=== PATIENT | female | born 1990 | race Caucasian/White ===

== ENCOUNTER 2016-11-12 10:45 | Observation (INO) | payer BC, OTHER ==
[2016-11-12] VITALS (7 sets, daily range): BP systolic 106–148; BP diastolic 68–88; PULSE 67–108; TEMP 36.6–36.9; O2SAT 93–100; Ht 160 cm; Wt 130.5 kg
[~2016-11-12] VITALS: Ht 160 cm; Wt 130.5 kg
[~2016-11-12 10:45] MED LIST: ALBUAER2 INH; CEFAZOLIN 3000 MG/65 ML D5W IV SCH; CEPH500C PO; CLC100 PO; IBUP-1428 PO; OXYC-57 PO; PRENTAB26 PO
[2016-11-12 12:13] LABS: URINE APPEARANCE CLOUDY (CLEAR); URINE BILIRUBIN NEG (NEG); URINE COLOR DK YELLOW; URINE EPITHELIAL CELL AUTO >30 /lpf (0-5); URINE NITRITE NEG (NEG); URINE SPECIFIC GRAVITY 1.028 (1.000-1.030); UROBILINOGEN NEG (NEG); ZZUR CULT IF INDIC CLEAN CATCH NO
[2016-11-12 12:14] LABS: MANUAL MICROSCOPIC REQUIRED? NO; REVIEW REQ? NO
[2016-11-12 12:22] LABS: BASO % 0.2 %; BASO ABS # 0.02 K/uL (0-0.2); COMPLETE YES; EOS % 1.6 %; HEMATOCRIT 36.4 % (37-47); IG% 0.2 %; LYMPH % 12.7 %; LYMPH ABS # 1.51 K/uL (1.2-3.4); MEAN CELL VOLUME 86.7 fL (80-100); MEAN CORPUSCULAR HEMOGLOBIN 28.8 pg (25-34); MEAN CORPUSCULAR HGB CONC 33.2 g/dl (32-36); MEAN PLATELET VOLUME 9.1 fL (7.4-10.4); MONO % 4.6 %; NEUT % 80.7 %; PLATELET COUNT 363 K/uL (130-400); WHITE BLOOD COUNT 11.93 K/uL (4.8-10.8)
[2016-11-12 12:41] LABS: CALCIUM 8.8 mg/dl (8.5-10.1); CREATININE 0.75 mg/dl (0.60-1.20); POTASSIUM 3.7 mmol/L (3.5-5.1)
[2016-11-12 12:43] LABS: ALB/GLOB RATIO 0.7 (0.9-2)
--- NOTE | 2016-11-12 13:37 | DIAGNOSTIC IMAGING REPORT ---
BILIARY ABDOMEN LIMITED HISTORY: 26 years-old Female RUQ pain/tenderness, +Smith's Sign acute right upper quadrant abdominal pain and tenderness. COMPARISON: KUB radiograph 03/14/2010 TECHNIQUE: Multiple real-time sonographic images of the abdominal right upper quadrant were obtained assessing grayscale appearance and color flow. FINDINGS: The study is mildly limited secondary to patient body habitus. The pancreas is not well seen. There is increased echogenicity with poor through transmission of the liver compatible with fatty infiltration. There is a 3 cm gallstone seen within the region of the gallbladder neck. Gallbladder wall thickening is noted measuring up to 6 mm with trace pericholecystic fluid noted. Patient tenderness was reported during exam. Common bile duct measures 0.5 cm. No intrahepatic biliary ductal dilation. Imaged right kidney is unremarkable without hydronephrosis. IMPRESSION: 1. Cholelithiasis with large gallstone seen near the gallbladder neck. Associated gallbladder wall thickening in combination with pericholecystic fluid and patient tenderness is very concerning for acute cholecystitis in the appropriate clinical setting. 2. No biliary ductal dilation. 3. Fatty infiltration of the liver. The above report was generated using voice recognition software. It may contain grammatical, syntax or spelling errors. Electronically signed by: Tyler Goodman M.D. 11/12/2016 1:36 PM Dictated Date/Time: 11/12/2016 1:32 PM
[2016-11-12] MEDS ORDERED: SODIUM CHLORIDE 0.9% 1000ML 1,000 ML IV STA (15:12)
[2016-11-12] MEDS ORDERED: MoRPHine SULFATE 4 MG/ML 1 ML CARP\\VIAL IV STA (15:12)
--- NOTE | 2016-11-12 15:12 | EMERGENCY ROOM VISIT NOTE ---
History First contact with patient: 11:32 Chief Complaint: ABDOMINAL PAIN Stated Complaint: ABD PAIN, PAIN IN UPPER QUAD - THROUGH DIAPHREAM Nursing Triage Summary: Pt reports RUQ pain since Mon night. N/V this morning. "I get this that randomly comes and goes, but this time it isn't leaving." Pt reports she had her menstrual cycle two weeks ago, continues to have vaginal bleeding which is not normal for her. Denies problems with gall bladder. History of Present Illness The patient is a 26 year old female who presents to the Emergency Room with complaints of right upper quadrant abdominal tenderness since yesterday. The patient states she thought the pains were related to gas, however they have not gone away. She states is The pain as dull, and states intermittently it does become sharp. The pain has awakened her from sleep. She states yesterday, she did eat an ache sandwich prior to the pain occurring, but has not noticed that food makes her pain better or worse. Patient states moving and sitting from a lying position does make the pain worse. She describes it as stabbing. The patient did take some ibuprofen, which did help mildly. She has had a decreased appetite and has not eaten anything since proximally 10 PM last night. He does report nausea with vomiting last night, but denies fever, chills , diarrhea, constipation, back pain, bloody urine, blood in her stool, urinary discomfort, or other associated symptoms. Review of Systems A complete 10 point review of systems was reviewed with the patient with pertinent positives and negatives as per history of present illness. All else were negative. Past Medical/Surgical History None Family History None Social History Smoking Status: Current Every Day Smoker Smokeless Tobacco Use: No Alcohol Use: occasionally Drug Use: none Marital Status: single Housing Status: lives with friends Occupation Status: employed Current/Historical Medications No Active Prescriptions or Reported Meds Allergies None Physical Exam Vital Signs Date Time Temp Pulse Resp B/P (MAP) Pulse Ox O2 Delivery O2 Flow Rate FiO2 11/12/16 15:00 103 18 169/109 100 Room Air 11/12/16 12:38 92 16 153/87 100 Room Air 11/12/16 11:02 36.9 108 18 165/103 98 Room Air Physical Exam VITALS: Vitals are noted on the nurse's note and reviewed by myself. Vital signs stable. GENERAL: This is a 26-year-old obese white female, in no acute distress, nondiaphoretic, well-developed well-nourished. SKIN: The skin was without rashes, erythema, edema, or bruising. There is no tenting of the skin. Capillary reflex less than 2 seconds. HEAD: Normocephalic atraumatic. EARS: External auditory canals clear, tympanic membranes pearly desir without erythema or effusion bilaterally. EYES: Pupils equal round and reactive to light and accommodation. Conjunctivae without injection, sclerae without icterus. Extraocular movements intact. NOSE: Patent, turbinates without inflammation or discharge. No sinus tenderness. MOUTH: Mucous membranes moist. Tonsils are not enlarged. Pharynx without erythema or exudate. Uvula midline. Airway patent. Tongue does not deviate. NECK: Supple without nuchal rigidity. No lymphadenopathy. No thyromegaly. Cervical spine is nontender. No JVD. HEART: Regular rate and rhythm without murmurs gallops or rubs. LUNGS: Clear to auscultation bilaterally without wheezes, rales or rhonchi. No dullness to percussion. No retractions or accessory muscle use. ABDOMEN: Positive bowel sounds x 4. Normal tympanic percussion. Significant RUQ tenderness on palpation. Pratt sign positive. Otherwise, abdomen is soft, nontender, without masses or organomegaly. No guarding or rebound tenderness. MUSCULOSKELETAL: No muscle atrophy, erythema, or edema noted. Full range of motion without joint tenderness in all extremities. No tenderness to palpation. Normal gait. Strength 5/5 throughout. NEURO: Patient was alert and oriented to person place and time. Normal sensation to light and sharp touch. Deep tendon reflexes 2+ throughout. No focal neurological deficits. Medical Decision & Procedures ER Provider Diagnostic Interpretation: On CBC, the patient does have a slight leukocytosis of just under 12,000. No anemia or thrombocytopenia. CMP did show mildly elevated ALT of 61. Otherwise, without significant electrolyte, renal, hepatic abnormalities. Lipase was negative. Urinalysis did show some WBC, blood, and epithelial cells. I suspect a contaminated specimen. US Biliary Abdomen Limited: BILIARY ABDOMEN LIMITED HISTORY: 26 years-old Female RUQ pain/tenderness, +Smith's Sign acute right upper quadrant abdominal pain and tenderness. COMPARISON: KUB radiograph 03/14/2010 TECHNIQUE: Multiple real-time sonographic images of the abdominal right upper quadrant were obtained assessing grayscale appearance and color flow. FINDINGS: The study is mildly limited secondary to patient body habitus. The pancreas is not well seen. There is increased echogenicity with poor through transmission of the liver compatible with fatty infiltration. There is a 3 cm gallstone seen within the region of the gallbladder neck. Gallbladder wall thickening is noted measuring up to 6 mm with trace pericholecystic fluid noted. Patient tenderness was reported during exam. Common bile duct measures 0.5 cm. No intrahepatic biliary ductal dilation. Imaged right kidney is unremarkable without hydronephrosis. IMPRESSION: 1. Cholelithiasis with large gallstone seen near the gallbladder neck. Associated gallbladder wall thickening in combination with pericholecystic fluid and patient tenderness is very concerning for acute cholecystitis in the appropriate clinical setting. 2. No biliary ductal dilation. 3. Fatty infiltration of the liver. The above report was generated using voice recognition software. It may contain grammatical, syntax or spelling errors. Electronically signed by: Tyler Goodman M.D. 11/12/2016 1:36 PM Laboratory Results 11/12/16 11:50 Red Blood Count 4.20, Mean Corpuscular Volume 86.7, Mean Corpuscular Hemoglobin 28.8, Mean Corpuscular Hemoglobin Concent 33.2, Mean Platelet Volume 9.1, Neutrophils (%) (Auto) 80.7, Lymphocytes (%) (Auto) 12.7, Monocytes (%) (Auto) 4.6, Eosinophils (%) (Auto) 1.6, Basophils (%) (Auto) 0.2, Neutrophils # (Auto) 9.64, Lymphocytes # (Auto) 1.51, Monocytes # (Auto) 0.55, Eosinophils # (Auto) 0.19, Basophils # (Auto) 0.02 11/12/16 11:50 Test 11/12/16 11:50 White Blood Count 11.93 K/uL (4.8-10.8) Red Blood Count 4.20 M/uL (4.2-5.4) Hemoglobin 12.1 g/dL (12.0-16.0) Hematocrit 36.4 % (37-47) Mean Corpuscular Volume 86.7 fL (80-100) Mean Corpuscular Hemoglobin 28.8 pg (25-34) Mean Corpuscular Hemoglobin Concent 33.2 g/dl (32-36) Platelet Count 363 K/uL (130-400) Mean Platelet Volume 9.1 fL (7.4-10.4) Neutrophils (%) (Auto) 80.7 % Lymphocytes (%) (Auto) 12.7 % Monocytes (%) (Auto) 4.6 % Eosinophils (%) (Auto) 1.6 % Basophils (%) (Auto) 0.2 % Neutrophils # (Auto) 9.64 K/uL (1.4-6.5) Lymphocytes # (Auto) 1.51 K/uL (1.2-3.4) Monocytes # (Auto) 0.55 K/uL (0.11-0.59) Eosinophils # (Auto) 0.19 K/uL (0-0.5) Basophils # (Auto) 0.02 K/uL (0-0.2) RDW Standard Deviation 45.2 fL (36.4-46.3) RDW Coefficient of Variation 14.5 % (11.5-14.5) Immature Granulocyte % (Auto) 0.2 % Immature Granulocyte # (Auto) 0.02 K/uL (0.00-0.02) Urine Color DK YELLOW Urine Appearance CLOUDY (CLEAR) Urine pH 5.0 (4.5-7.5) Urine Specific [place] 1.028 (1.000-1.030) Urine Protein 1+ (NEG) Urine Glucose (UA) NEG (NEG) Urine Ketones NEG (NEG) Urine Occult Blood 3+ (NEG) Urine Nitrite NEG (NEG) Urine Bilirubin NEG (NEG) Urine Urobilinogen NEG (NEG) Urine Leukocyte Esterase TRACE (NEG) Urine WBC (Auto) 5-10 /hpf (0-5) Urine RBC (Auto) >30 /hpf (0-4) Urine Hyaline Casts (Auto) 1-5 /lpf (0-5) Urine Epithelial Cells (Auto) >30 /lpf (0-5) Urine Bacteria (Auto) NEG (NEG) Urine Test NEG (NEG) Anion Gap 8.0 mmol/L (3-11) Est Creatinine Clear Calc Drug Dose 150.1 ml/min Estimated GFR () 127.5 Estimated GFR (Non- 110.0 BUN/Creatinine Ratio 11.0 (10-20) Calcium Level 8.8 mg/dl (8.5-10.1) Total Bilirubin 0.4 mg/dl (0.2-1) Aspartate Amino Transf (AST/SGOT) 61 U/L (15-37) Alanine Aminotransferase (ALT/SGPT) 69 U/L (12-78) Alkaline Phosphatase 91 U/L (45-117) Total Protein 8.2 gm/dl (6.4-8.2) Albumin 3.5 gm/dl (3.4-5.0) Globulin 4.7 gm/dl (2.5-4.0) Albumin/Globulin Ratio 0.7 (0.9-2) Lipase 129 U/L (73-393) Medications Administered Medications (Trade) Dose Ordered Sig/Robert Route Start Time Stop Time Status Last Admin Dose Admin Morphine Sulfate (MoRPHine SULFATE INJ) 4 mg NOW STAT IV 11/12/16 15:12 11/12/16 15:14 DC 11/12/16 15:26 4 MG Sodium Chloride 1,000 ml @ 999 mls/hr Q1H1M STAT IV 11/12/16 15:12 11/12/16 16:12 DC 11/12/16 15:12 999 MLS/HR Sodium Chloride 1,000 ml @ 125 mls/hr Q8H IV 11/12/16 15:20 12/12/16 15:19 11/12/16 19:54 125 MLS/HR Medical Decision The patient presented today complaining of right upper quadrant abdominal pain and tenderness since yesterday. She is obese. The patient states the pain has not been affected by food, but is more affected by movement. She does have a positive Pratt sign on examination. She did decline pain medication twice during my examination. Ultrasound and lab work did elevate my suspicions for acute cholecystitis. Labs and ultrasound results reviewed with the patient. I advised her that I would contact the general surgeon regarding possible surgery/admission. The patient did request pain medication at this time. She was given 1L NSS Bolus and 4mg Morphine. I did consult with Dr. Ortiz, general surgeon, who did see and evaluate the patient. The patient will be admitted to surgery. Please see his dictation. Differential diagnosis includes: Acute cholecystitis, acute pancreatitis, hepatic inflammation or abnormality, acute appendicitis, ovarian cyst, GERD, acute gastroenteritis, malignancy, and others. Medication Reconcilliation Current Medication List: was personally reviewed by me Blood Pressure Screening Patient's blood pressure: Normal blood pressure Impression Primary Impression: Acute cholecystitis Departure Information Dispostion Being Evaluated By Surgeon Condition FAIR Prescriptions No Active Prescriptions or Reported Meds Referrals No Doctor, Assigned (PCP) Patient Instructions [facility]
[2016-11-12] MEDS ORDERED: MoRPHine SULFATE 2 MG/ML CARP IV PRN ×2 (15:30)
[2016-11-12] MEDS ORDERED: ONDANSETRON INJ 2 MG/ML 2 ML VIAL IV PRN ×2 (15:30→15:45)
[2016-11-12] MEDS ORDERED: MoRPHine SULFATE 4 MG/ML 1 ML CARP\\VIAL IV PRN (15:30)
--- NOTE | 2016-11-12 15:30 | History and Physical ---
History & Physical Date & Time of Service: Nov 12, 2016 at 15:25 Chief Complaint: Abd Pain, Pain In Upper Quad - Through Diaphream Primary Care Physician: No Doctor, Assigned History of Present Illness Source: patient This is a 26-year-old female who presents to the emergency room with a complaint of pain located in the right upper abdomen that began yesterday morning. She has had other little branches of discomfort that lasted just a few minutes over the last month but nothing this lasted this long as been this severe. He does not radiate around to her back or into the left side of her back. She has no history of jaundice, hepatitis or pancreatitis. She had some nausea and vomited once this morning but there was no hematemesis. Her bowels are been moving regularly without melena or hematochezia. She has no dysuria or hematuria. Only previous abdominal surgery was a 6 years ago. Social History Smoking Status: Current Every Day Smoker Smokeless Tobacco Use: No Drug Use: none Marital Status: single Occupational Status: employed Immunizations History of Influenza Vaccine: Unknown History of Tetanus Vaccine?: Unknown Allergies Coded Allergies: No Known Allergies (Unverified , 03/22/10) Home Medications No Active Prescriptions or Reported Meds Review of Systems Constitutional: No fever Respiratory: No cough, No sputum Cardiovascular: No chest pain Abdomen: + problem reported (as per HPI) Neurologic: No memory loss Endocrine: No fatigue Hematologic / Lymphatic: No abnormal bleeding/bruising Integumentary: No rash Physical Exam Vital Signs Date Time Temp Pulse Resp B/P (MAP) Pulse Ox O2 Delivery O2 Flow Rate FiO2 11/12/16 15:00 103 18 169/109 100 Room Air 11/12/16 12:38 92 16 153/87 100 Room Air 11/12/16 11:02 36.9 108 18 165/103 98 Room Air General Appearance: no apparent distress, + obese Head: normocephalic Neck: supple, no adenopathy Respiratory/Chest: chest non-tender, lungs clear Cardiovascular: regular rate, rhythm Abdomen/GI: normal bowel sounds, soft, + tenderness (RUQ) Back: normal inspection, no CVA tenderness Extremities/Musculoskelatal: normal inspection, no calf tenderness Skin: normal color Diagnostics Laboratory Results Results Past 24 Hours Test 11/12/16 11:50 Range/Units White Blood Count 11.93 4.8-10.8 K/uL Red Blood Count 4.20 4.2-5.4 M/uL Hemoglobin 12.1 12.0-16.0 g/dL Hematocrit 36.4 37-47 % Mean Corpuscular Volume 86.7 80-100 fL Mean Corpuscular Hemoglobin 28.8 25-34 pg Mean Corpuscular Hemoglobin Concent 33.2 32-36 g/dl Platelet Count 363 130-400 K/uL Mean Platelet Volume 9.1 7.4-10.4 fL Neutrophils (%) (Auto) 80.7 % Lymphocytes (%) (Auto) 12.7 % Monocytes (%) (Auto) 4.6 % Eosinophils (%) (Auto) 1.6 % Basophils (%) (Auto) 0.2 % Neutrophils # (Auto) 9.64 1.4-6.5 K/uL Lymphocytes # (Auto) 1.51 1.2-3.4 K/uL Monocytes # (Auto) 0.55 0.11-0.59 K/uL Eosinophils # (Auto) 0.19 0-0.5 K/uL Basophils # (Auto) 0.02 0-0.2 K/uL RDW Standard Deviation 45.2 36.4-46.3 fL RDW Coefficient of Variation 14.5 11.5-14.5 % Immature Granulocyte % (Auto) 0.2 % Immature Granulocyte # (Auto) 0.02 0.00-0.02 K/uL Urine Color DK YELLOW Urine Appearance CLOUDY CLEAR Urine pH 5.0 4.5-7.5 Urine Specific [place] 1.028 1.000-1.030 Urine Protein 1+ NEG Urine Glucose (UA) NEG NEG Urine Ketones NEG NEG Urine Occult Blood 3+ NEG Urine Nitrite NEG NEG Urine Bilirubin NEG NEG Urine Urobilinogen NEG NEG Urine Leukocyte Esterase TRACE NEG Urine WBC (Auto) 5-10 0-5 /hpf Urine RBC (Auto) >30 0-4 /hpf Urine Hyaline Casts (Auto) 1-5 0-5 /lpf Urine Epithelial Cells (Auto) >30 0-5 /lpf Urine Bacteria (Auto) NEG NEG Sodium Level 140 136-145 mmol/L Potassium Level 3.7 3.5-5.1 mmol/L Chloride Level 107 98-107 mmol/L Carbon Dioxide Level 25 21-32 mmol/L Anion Gap 8.0 3-11 mmol/L Blood Urea Nitrogen 8 7-18 mg/dl Creatinine 0.75 0.60-1.20 mg/dl Est Creatinine Clear Calc Drug Dose 150.1 ml/min Estimated GFR () 127.5 Estimated GFR (Non- 110.0 BUN/Creatinine Ratio 11.0 10-20 Random Glucose 87 70-99 mg/dl Calcium Level 8.8 8.5-10.1 mg/dl Total Bilirubin 0.4 0.2-1 mg/dl Aspartate Amino Transf (AST/SGOT) 61 15-37 U/L Alanine Aminotransferase (ALT/SGPT) 69 12-78 U/L Alkaline Phosphatase 91 45-117 U/L Total Protein 8.2 6.4-8.2 gm/dl Albumin 3.5 3.4-5.0 gm/dl Globulin 4.7 2.5-4.0 gm/dl Albumin/Globulin Ratio 0.7 0.9-2 Lipase 129 73-393 U/L Diagnostic Radiology BILIARY ABDOMEN LIMITED HISTORY: 26 years-old Female RUQ pain/tenderness, +Smith's Sign acute right upper quadrant abdominal pain and tenderness. COMPARISON: KUB radiograph 03/14/2010 TECHNIQUE: Multiple real-time sonographic images of the abdominal right upper quadrant were obtained assessing grayscale appearance and color flow. FINDINGS: The study is mildly limited secondary to patient body habitus. The pancreas is not well seen. There is increased echogenicity with poor through transmission of the liver compatible with fatty infiltration. There is a 3 cm gallstone seen within the region of the gallbladder neck. Gallbladder wall thickening is noted measuring up to 6 mm with trace pericholecystic fluid noted. Patient tenderness was reported during exam. Common bile duct measures 0.5 cm. No intrahepatic biliary ductal dilation. Imaged right kidney is unremarkable without hydronephrosis. IMPRESSION: 1. Cholelithiasis with large gallstone seen near the gallbladder neck. Associated gallbladder wall thickening in combination with pericholecystic fluid and patient tenderness is very concerning for acute cholecystitis in the appropriate clinical setting. 2. No biliary ductal dilation. 3. Fatty infiltration of the liver. Impression Assessment and Plan This patient's history physical exam and ultrasound findings as well as her elevated white count consistent with acute cholecystitis. I recommended a laparoscopic cholecystectomy she has agreed. I explained the possible need to convert to an open procedure. I explained the possible complications and answered her questions. She has signed a consent form. VTE Prophylaxis VTE Risk Assessment Done? Y/N: Yes Risk Level: Low
[2016-11-12] MEDS ORDERED: EpHEDrine SULFATE INJ 50 MG/ML AMP IV PRN (15:45)
[2016-11-12] MEDS ORDERED: HYDROmorphone INJ 1 MG/ML SYR IV PRN (15:45)
[2016-11-12] MEDS ORDERED: ATROPINE SULFATE 0.1 MG/ML 5ML SYR IV PRN (15:45)
[2016-11-12] MEDS ORDERED: IV FLUIDS COMPLETED PRN (15:45)
[2016-11-12] MEDS ORDERED: FENTANYL CITRATE INJ 50 MCG/1 ML 2 ML VIAL IV PRN (15:45)
[2016-11-12] MEDS ORDERED: LIDOCAINE HCL 2% 2 ML VIAL (20MG/ML) ONE (15:49)
[2016-11-12] MEDS ORDERED: SUCCINYLCHOLINE CHLORIDE 20 MG/ML 10 ML VIAL IV ONE (15:49)
[2016-11-12] MEDS ORDERED: GLYCOPYRROLATE INJ 0.2 MG/ML VIAL ONE (15:49)
[2016-11-12] MEDS ORDERED: DEXAMETHASONE SOD INJ 4 MG/ML VIAL ONE (15:49)
[2016-11-12] MEDS ORDERED: PROPOFOL IV EMULSION 10 MG/ML 20 ML VIAL IV ONE (15:49)
[2016-11-12] MEDS ORDERED: EpHEDrine SULFATE INJ 50 MG/ML AMP ONE (15:49)
[2016-11-12] MEDS ORDERED: PHENYLEPHRINE HCL INJ 10 MG/ML VIAL ONE (15:49)
[2016-11-12] MEDS ORDERED: ONDANSETRON INJ 2 MG/ML 2 ML VIAL ONE (15:49)
[2016-11-12] MEDS ORDERED: MIDAZOLAM HCL 1 MG/ML 2ML VIAL ONE (15:49)
[2016-11-12] MEDS ORDERED: NEOSTIGMINE METHYLSULFATE 5 MG/5 ML SYR ONE (15:49)
[2016-11-12] MEDS ORDERED: ROCURONIUM BROMIDE 10 MG/ML 5 ML VIAL IV ONE (15:49)
[2016-11-12] MEDS ORDERED: FENTANYL CITRATE INJ 50 MCG/1 ML 2 ML VIAL ONE (15:50)
[2016-11-12] MEDS ORDERED: CONRAY 60% 50 ML VIAL ONE (15:59)
[2016-11-12] MEDS ORDERED: HEPARIN SOD (PORCINE) 1000 UNIT/ML 10 ML VIAL ONE (16:00)
[2016-11-12] MEDS ORDERED: CEFAZOLIN SOD 1 GM VIAL ONE (16:00)
[2016-11-12] MEDS ORDERED: BUPIVACAINE 0.5 % 5 MG/1 ML MPF 30ML VIAL ONE (16:00)
[2016-11-12 16:35] LABS: PREG INTERNAL NEGATIVE QC NEG CLEAR BACKGROUND; PREG INTERNAL POSITIVE QC POS CONTROL LINE
[2016-11-12] MEDS ORDERED: ALBUTEROL HFA INHALER 8.5 GM INH ONE (17:03)
[2016-11-12] MEDS ORDERED: LABETALOL HCL IV 5 MG/ML 20ML IV ONE (17:17)
[2016-11-12] MEDS ORDERED: KETAMINE HCL INJ 50 MG/ML 10 ML VIAL ONE (17:35)
--- NOTE | 2016-11-12 18:25 | [facility] Post Operative Brief Note ---
Immediate Operative Summary Operative Date Nov 12, 2016. Pre-Operative Diagnosis Cholelithiasis Post-Operative Diagnosis Cholelithiasis Procedure(s) Performed Laparoscopic Cholecystectomy Surgeon Dr. Tulio Ortiz [employer] Surgeon(s) Franco Verma PA-C Estimated Blood Loss 10ml Findings See dictation Specimens A: Gallbladder and contents Drains None Anesthesia General Complication(s) None Disposition Recovery Room / PACU
[2016-11-12] MEDS ORDERED: OXYCODONE/ACETAMINOPHEN 5-325 TAB PO PRN ×2 (18:30→18:45)
--- NOTE | 2016-11-12 19:12 | Anesthesiology Progress Note ---
Anesthesia Post Op Note Date & Time Nov 12, 2016 at 19:12 Vital Signs Pain Intensity: 3 Vital Signs Past 12 Hours Date Time Temp Pulse Resp B/P (MAP) Pulse Ox O2 Delivery O2 Flow Rate FiO2 11/12/16 19:01 137/82 11/12/16 19:00 92 25 97 11/12/16 19:00 90 25 11/12/16 18:56 136/84 11/12/16 18:55 96 25 11/12/16 18:55 96 25 98 11/12/16 18:51 135/86 11/12/16 18:50 88 25 11/12/16 18:50 88 25 96 11/12/16 18:46 141/83 11/12/16 18:45 96 25 11/12/16 18:45 96 25 95 11/12/16 18:41 143/82 11/12/16 18:40 96 99 11/12/16 18:40 36.5 95 20 143/82 98 Oxymask 10 11/12/16 18:40 96 11/12/16 16:08 36.9 95 16 149/94 (112) 100 Room Air 11/12/16 15:34 95 18 159/103 99 Room Air 11/12/16 15:00 103 18 169/109 100 Room Air 11/12/16 12:38 92 16 153/87 100 Room Air 11/12/16 11:02 36.9 108 18 165/103 98 Room Air Notes Mental Status: alert / awake / arousable, participated in evaluation Pt Amnestic to Procedure: Yes Nausea / Vomiting: adequately controlled Pain: adequately controlled Airway Patency, RR, SpO2: stable & adequate BP & HR: stable & adequate Hydration State: stable & adequate Anesthetic Complications: no major complications apparent
[2016-11-12] MEDS: SODIUM CHLORIDE 0.9% 1000ML 1,000 ML IV SCH (19:54)
[2016-11-13] MEDS: SODIUM CHLORIDE 0.9% 1000ML 1,000 ML IV SCH ×2 (00:16→08:15)
--- NOTE | 2016-11-13 00:16 | OPERATIVE REPORT ---
DATE OF OPERATION: 11/12/2016 PREOPERATIVE DIAGNOSES: Acute cholecystitis, cholelithiasis. POSTOPERATIVE DIAGNOSES: Same. PROCEDURE: Laparoscopic cholecystectomy. SURGEON: Dr. Ortiz. RADIO COMMENTATOR: Bernice Davis PA-C. FINDINGS: The gallbladder was dilated. The wall was thickened. There was a lot of edema surrounding the gallbladder, especially near the cystic duct and in the triangle of Calot. The gallbladder was densely adherent to the liver. There was more likely a large stone and some smaller stones in the gallbladder. One of them was lodged in the infundibulum area. The cystic duct was not dilated. The liver was more light in color. It was not enlarged, however. The visible bowel appeared normal. TECHNIQUE: The patient was given a general anesthetic and the area was prepped and draped in the usual sterile fashion. Transverse incision was made below the umbilicus, carried down through the subcutaneous tissue to the fascia which was grasped with 2 Jennifer clamps and incised between. The peritoneum was identified, incised, and the introducer was placed bluntly. The abdomen was then insufflated to a pressure of 15 mmHg with carbon dioxide. The upper midline, mid clavicular and anterior axillary introducers were placed under direct vision through small skin incisions. We attempted to grasp the gallbladder but it was too dilated and thick. I then used the aspiration needle and placed it under direct vision and aspirated yellow bile from the gallbladder which decompressed and allowed us then to grasp and place upper lateral traction. I then was able to identify the infundibulum and peeled peritoneum and connective tissue off the infundibulum until I was able to get to the underside of the infundibulum toward the neck of the gallbladder. I dissected the infundibulum away from the liver on the lateral side, which gave more mobility. It was difficult to place lateral traction but I was able to divide some of the medial attachments in the triangle of Calot and open the triangle of Calot and identify the cystic duct lymph node. Further dissection along the body of the gallbladder and dissecting it away from the liver on the lateral side and then dissecting some of it off the liver allowed me then more mobility and I was able to then visualize the cystic duct and the cystic artery area. Further dissection of some thickened lymphatics then exposed the cystic duct. The cystic duct and the cystic artery were adherent to each other. I was able to establish a plane between those 2 structures, isolating the cystic duct and allowing me to confidently identify the cystic duct-gallbladder junction. Further dissection was then carried out on the medial side, dissecting the infundibulum away from the liver, and I was able to establish a plane behind the lower portion of the infundibulum which allowed me to visualize the window behind the cystic duct and cystic artery. Three clips were placed on the proximal cystic duct, 1 near the junction with the gallbladder, and it was divided. Two clips were placed on the proximal cystic artery and 1 near the gallbladder and it was divided. The gallbladder was then peeled off the liver bed using meticulous careful dissection, the wall away from the liver bed. There were areas where it was densely adherent and I had to carefully dissect it away. That dissection was carried from inferior to superior until it was completely freed. The gallbladder was placed into an Endobag and brought out through the upper midline incision where I had to increase the size of the incision and increase the fascial opening in order to extract the gallbladder infundibular portion. I then opened the gallbladder and crushed the stone and removed it in order to extract the gallbladder within the bag, that was accomplished. That introducer was replaced and the liver edge was elevated. The subdiaphragmatic and subhepatic spaces were irrigated, the irrigation was removed, and that was repeated until the return was clear. The gallbladder, bed of the liver was inspected and there was no bleeding. The previously placed clips were intact. The gas was allowed to escape and the introducers were removed. The fascia of the umbilical and upper midline introducer sites was closed with interrupted 0 Vicryl and skin of all the incisions was closed with 4-0 Monocryl in either an interrupted or running subcuticular fashion. The skin was anesthetized with 0.5% Marcaine. The skin was cleansed, dried, benzoin placed, Steri-Strips applied. Estimated blood loss was 10 mL. Sponge, needle and instrument counts were correct prior to closure. The patient tolerated the surgical procedure without complication and was transferred to recovery. I attest to the content of the Intraoperative Record and any orders documented therein. Any exception s are noted below.
[2016-11-13 03:25] VITALS: BP 120/72; PULSE 102; TEMP 36.8; O2SAT 95
[2016-11-13] MEDS ORDERED: CEFAZOLIN IV 3,000 MG in DEXTROSE 5% 50ML 50 ML IV ONE (06:00)
[2016-11-13 07:15] VITALS: BP 122/81; PULSE 81; TEMP 36.6; O2SAT 97
--- NOTE | 2016-11-13 08:33 | Surgery Progress Note ---
Surgery Progress Note Date of Service Nov 13, 2016. Subjective Post OP Day: 1 + feeling well, + pain controlled, + diet (had some jello and pudding last evening), No complaints, No chest pain, No SOB, No bowel movement, No flatus, No nausea, No vomiting Objective Vital Signs: Date Time Temp Pulse Resp B/P (MAP) Pulse Ox O2 Delivery O2 Flow Rate FiO2 11/13/16 07:46 Room Air 11/13/16 07:15 36.6 81 16 122/81 (95) 97 Room Air 11/13/16 03:25 36.8 102 16 120/72 (88) 95 Room Air 11/13/16 00:15 Room Air 11/12/16 22:59 36.6 104 17 148/86 (106) 93 Nasal Cannula 2.0 11/12/16 22:49 36.7 108 16 106/68 (81) 96 Nasal Cannula 2.0 11/12/16 21:57 36.9 96 17 139/81 (100) 97 Nasal Cannula 2.0 11/12/16 20:51 36.6 96 17 148/88 (108) 97 Nasal Cannula 2.0 11/12/16 20:15 36.8 96 17 144/88 (106) 97 Nasal Cannula 2.0 11/12/16 19:45 Nasal Cannula 2.0 11/12/16 19:45 36.8 67 18 135/81 (99) 100 Nasal Cannula 2.0 11/12/16 19:45 Nasal Cannula 2.0 11/12/16 19:28 84 29 11/12/16 19:28 85 29 98 11/12/16 19:26 146/89 11/12/16 19:23 96 25 11/12/16 19:23 95 25 99 11/12/16 19:21 135/85 11/12/16 19:18 36.5 11/12/16 19:18 81 24 11/12/16 19:18 81 24 98 11/12/16 19:16 144/89 11/12/16 19:13 89 28 11/12/16 19:13 89 28 97 11/12/16 19:12 88 25 98 11/12/16 19:12 88 25 11/12/16 19:11 143/81 11/12/16 19:07 103 28 11/12/16 19:07 104 28 97 9/27/17 19:06 143/85 11/12/16 19:02 98 28 97 11/12/16 19:02 98 28 11/12/16 19:01 137/82 11/12/16 19:00 92 25 97 11/12/16 19:00 90 25 11/12/16 18:56 136/84 11/12/16 18:55 96 25 11/12/16 18:55 96 25 98 11/12/16 18:51 135/86 11/12/16 18:50 88 25 11/12/16 18:50 88 25 96 11/12/16 18:46 141/83 11/12/16 18:45 96 25 11/12/16 18:45 96 25 95 11/12/16 18:41 143/82 11/12/16 18:40 96 99 11/12/16 18:40 36.5 95 20 143/82 98 Oxymask 10 11/12/16 18:40 96 11/12/16 16:08 36.9 95 16 149/94 (112) 100 Room Air 11/12/16 15:34 95 18 159/103 99 Room Air 11/12/16 15:00 103 18 169/109 100 Room Air 11/12/16 12:38 92 16 153/87 100 Room Air 11/12/16 11:02 36.9 108 18 165/103 98 Room Air General Appearance: WD/WN, no apparent distress, + obese Head: normocephalic, atraumatic Neck: trachea midline Respiratory/Chest: no respiratory distress, no accessory muscle use Cardiovascular: regular rate, rhythm, no murmur Abdomen: non distended, soft, + tenderness (appropriate post op but minimal) Incision(s): clean, dry, intact (dressings intact, slight drainage on upper midline incision, ) Laboratory Results: Results Past 24 Hours Test 11/12/16 11:50 Range/Units White Blood Count 11.93 4.8-10.8 K/uL Red Blood Count 4.20 4.2-5.4 M/uL Hemoglobin 12.1 12.0-16.0 g/dL Hematocrit 36.4 37-47 % Mean Corpuscular Volume 86.7 80-100 fL Mean Corpuscular Hemoglobin 28.8 25-34 pg Mean Corpuscular Hemoglobin Concent 33.2 32-36 g/dl Platelet Count 363 130-400 K/uL Mean Platelet Volume 9.1 7.4-10.4 fL Neutrophils (%) (Auto) 80.7 % Lymphocytes (%) (Auto) 12.7 % Monocytes (%) (Auto) 4.6 % Eosinophils (%) (Auto) 1.6 % Basophils (%) (Auto) 0.2 % Neutrophils # (Auto) 9.64 1.4-6.5 K/uL Lymphocytes # (Auto) 1.51 1.2-3.4 K/uL Monocytes # (Auto) 0.55 0.11-0.59 K/uL Eosinophils # (Auto) 0.19 0-0.5 K/uL Basophils # (Auto) 0.02 0-0.2 K/uL RDW Standard Deviation 45.2 36.4-46.3 fL RDW Coefficient of Variation 14.5 11.5-14.5 % Immature Granulocyte % (Auto) 0.2 % Immature Granulocyte # (Auto) 0.02 0.00-0.02 K/uL Urine Color DK YELLOW Urine Appearance CLOUDY CLEAR Urine pH 5.0 4.5-7.5 Urine Specific [place] 1.028 1.000-1.030 Urine Protein 1+ NEG Urine Glucose (UA) NEG NEG Urine Ketones NEG NEG Urine Occult Blood 3+ NEG Urine Nitrite NEG NEG Urine Bilirubin NEG NEG Urine Urobilinogen NEG NEG Urine Leukocyte Esterase TRACE NEG Urine WBC (Auto) 5-10 0-5 /hpf Urine RBC (Auto) >30 0-4 /hpf Urine Hyaline Casts (Auto) 1-5 0-5 /lpf Urine Epithelial Cells (Auto) >30 0-5 /lpf Urine Bacteria (Auto) NEG NEG Urine Test NEG NEG Sodium Level 140 136-145 mmol/L Potassium Level 3.7 3.5-5.1 mmol/L Chloride Level 107 98-107 mmol/L Carbon Dioxide Level 25 21-32 mmol/L Anion Gap 8.0 3-11 mmol/L Blood Urea Nitrogen 8 7-18 mg/dl Creatinine 0.75 0.60-1.20 mg/dl Est Creatinine Clear Calc Drug Dose 150.1 ml/min Estimated GFR () 127.5 Estimated GFR (Non- 110.0 BUN/Creatinine Ratio 11.0 10-20 Random Glucose 87 70-99 mg/dl Calcium Level 8.8 8.5-10.1 mg/dl Total Bilirubin 0.4 0.2-1 mg/dl Aspartate Amino Transf (AST/SGOT) 61 15-37 U/L Alanine Aminotransferase (ALT/SGPT) 69 12-78 U/L Alkaline Phosphatase 91 45-117 U/L Total Protein 8.2 6.4-8.2 gm/dl Albumin 3.5 3.4-5.0 gm/dl Globulin 4.7 2.5-4.0 gm/dl Albumin/Globulin Ratio 0.7 0.9-2 Lipase 129 73-393 U/L Assessment & Plan POD # 1 s/p lap sepideh -vitals stable, afebrile - preoperative pain resolved, minimal post surgical pain, controlled - no nausea or vomiting - adequate urine output Plan: Doing well post-op. Will see how she does with regular breakfast and plan for discharge later this morning or afternoon Encourage ambulation Continue PO Percocet as needed for pain Will re-evaluate later this morning Dr. Ortiz has seen and examined patient and agrees with above Re-evaluated at 1:50 pm tolerated breakfast and lunch. Pain controlled No nausea or vomiting Ready to go home Discharge instructions reviewed Rx for Percocet as needed Follow-up in surgical office in 2 weeks
--- NOTE | 2016-11-13 11:02 | Discharge Instructions ---
Discharge Instructions Date of Service Nov 13, 2016. Admission Reason for Admission: Acute Cholecystitis Discharge Discharge Diagnosis / Problem: same Discharge Goals Goal(s): Decrease discomfort, Improve function Activity Recommendations Activity Limitations: as noted below No heavy lifting over 20 pounds for 2 weeks No strenuous activity until cleared by surgeon Walking and light activity is encouraged No submerging incisions underwater for 2 weeks or until healed (no bathing, swimming, or hot tubs) No driving while taking narcotic pain medication or until you are pain free . Instructions / Follow-Up Instructions / Follow-Up You may shower starting tomorrow. May remove outer dressings and keep steri strips on incision. The steri strips may fall off on their own that is okay. If they are on longer than 7 days you may then remove Follow-up in surgical office in 2 weeks. Please call [phone] to make an appointment Current Hospital Diet Patient's current hospital diet: Regular Diet Discharge Diet Recommended Diet: Regular Diet Procedures Procedures Performed: Laparoscopic Cholecystectomy Pending Studies Studies pending at discharge: yes List of pending studies: Gallbladder pathology- will be reviewed at follow-up visit Medical Emergencies . Who to Call and When: Medical Emergencies: If at any time you feel your situation is an emergency, please call 911 immediately. . Non-Emergent Contact Non-Emergency issues call your: Primary Care Provider, Surgeon Call Non-Emergent contact if: you have a fever, temperature is above 101.5, your pain is not controlled, your pain is worsening, wound has increased drainage, wound has increased redness, wound has increased pain . "Provider Documentation" section prepared by Bernice Davis. . VTE Core Measure Inpt VTE Proph given/why not?: SCD's [place] Drug Monitoring Program Search Results: patient reviewed within database, no issues identified
[2016-11-13 11:31] VITALS: BP 113/73; PULSE 55; TEMP 36.3; O2SAT 97
--- NOTE | 2016-11-13 12:21 | Anesthesiology Progress Note ---
Anesthesia Post Op Note Date & Time Nov 13, 2016 at 12:20 Vital Signs Pain Intensity: 0.0 Vital Signs Past 12 Hours Date Time Temp Pulse Resp B/P (MAP) Pulse Ox O2 Delivery O2 Flow Rate FiO2 11/13/16 11:31 36.3 55 16 113/73 (86) 97 Room Air 11/13/16 07:46 Room Air 11/13/16 07:15 36.6 81 16 122/81 (95) 97 Room Air 11/13/16 03:25 36.8 102 16 120/72 (88) 95 Room Air Notes Mental Status: alert / awake / arousable, participated in evaluation Pt Amnestic to Procedure: Yes Nausea / Vomiting: adequately controlled Pain: adequately controlled Airway Patency, RR, SpO2: stable & adequate BP & HR: stable & adequate Hydration State: stable & adequate Anesthetic Complications: no major complications apparent
[2016-11-13] MEDS ORDERED: OXYC-57 PO (13:49)
[2016-11-13 13:50] VITALS: BP 113/73; PULSE 55; TEMP 36.3; O2SAT 97
--- NOTE | 2016-11-14 10:41 | Discharge Summary ---
Discharge Summary Dates Admission Date / Time: Nov 12, 2016 at 15:25 Discharge Date: Nov 13, 2016 Dispostion / Condition Discharge Disposition: Home Condition at Discharge: Good Principal Diagnosis (1) Cholecystitis, acute with cholelithiasis Problem List (1) Cholecystitis, acute with cholelithiasis Consultations / Procedures Consultations: None Procedures: Laparoscopic Cholecystectomy Pending Studies / Follow-Up Gallbladder pathology- will be reviewed at follow-up visit Medication Reconciliation New Medications: Oxycodone/Acetaminophen 5MG/325MG (Percocet 5MG/325MG) Tab 1 TABLET PO Q4H PRN for Pain, #18 TAB Admission HPI Per the Admitting provider: This is a 26-year-old female who presents to the emergency room with a complaint of pain located in the right upper abdomen that began yesterday morning. She has had other little branches of discomfort that lasted just a few minutes over the last month but nothing this lasted this long as been this severe. He does not radiate around to her back or into the left side of her back. She has no history of jaundice, hepatitis or pancreatitis. She had some nausea and vomited once this morning but there was no hematemesis. Her bowels are been moving regularly without melena or hematochezia. She has no dysuria or hematuria. Only previous abdominal surgery was a 6 years ago. Admission Exam Per the Admitting provider: General Appearance: no apparent distress, + obese Head: normocephalic Neck: supple, no adenopathy Respiratory/Chest: chest non-tender, lungs clear Cardiovascular: regular rate, rhythm Abdomen/GI: normal bowel sounds, soft, + tenderness (RUQ) Back: normal inspection, no CVA tenderness Extremities/Musculoskelatal: normal inspection, no calf tenderness Skin: normal color Hospital Course (1) Cholecystitis, acute with cholelithiasis Patient was taken to operating room for laparoscopic possible open cholecystectomy by Dr. Ortiz. Patient tolerated procedure well without any complications. She was transferred to PACU in stable condition and observed. Was then sent to medical/surgical floor for post operative care. She was started on regular diet, IV fluids, IV morphine and PO Percocet as needed for pain, and IV Zofran. Activity as tolerated. POD # 1 patient was feeling well. Preoperative pain resolved and now just having surgical tenderness/soreness. Pain controlled with po narcotics. No nausea or vomiting. Did not have much for dinner but tolerated diet well. Urinating without difficulty. She was advised to eat more of a breakfast and then was discharged home in stable condition in the afternoon on POD # 1. Overall hospital course uneventful. Discharge Instructions as given to patient Copies To Primary Care Provider: No Doctor, Assigned. Problem Qualifiers (1) Cholecystitis, acute with cholelithiasis: Cholelithiasis location: gallbladder Biliary obstruction: without biliary obstruction Qualified Codes: K80.00 - Calculus of gallbladder with acute cholecystitis without obstruction
== END 2016-11-13 15:00 | disposition home or self-care (01) ==
LOC: C.EDB 10:48 → C.MSW 15:25 → C.EDB 15:30 → CANBEDREQ 15:52 → C.EDB 19:01 → ENRESERV 19:26
PROVIDERS: ADMIT Surgery; ATTEND Surgery
DX: K80.12 Calculus of gallbladder with acute and chronic cholecystitis without obstruction (principal); F17.200 Nicotine dependence, unspecified, uncomplicated

== ENCOUNTER 2021-04-11 08:06 | Inpatient (IN) ==
[2021-04-11] MEDS ORDERED: OXYTOCIN 30 UNITS/500 ML BAG IV PRN ×2 (08:34→11:10)
[2021-04-11 08:53] LABS: Hematocrit (blood only) 31.4 % (37-47); Hemoglobin 10.7 g/dL (12.0-16.0); Mean Corpuscular Hgb Conc 34.1 g/dL (32-36); Mean Platelet Volume 9.8 fL (7.4-10.4); Platelet Count 313 K/uL (130-400); RDW Coefficient of Variation 15.2 % (11.5-14.5); RDW Standard Deviation 48.8 fL (36.4-46.3); Red Blood Count 3.57 M/uL (4.2-5.4); White Blood Count 10.14 K/uL (4.8-10.8)
--- NOTE | 2021-04-11 09:22 | History & Physical Report ---
Date of Service April 11, 2021 Assessment & Plan (1) Chronic hypertension affecting : (2) Diabetes in preg-unspec: Plan: Cervical ripening with low dose Oxytocin planned I reviewed the risks and benefits of trial of labor vs repeat with patient and she is aware that she may still need a and is requesting trial of labor despite the risks. Consent form was signed and witnessed by her nurse Tarah Wilson RN Admission and Anticipated Discharge Date Admission Date: April 11, 2021 History of Present Illness Chief Complaint: induction of labor Primary Care Provider: NO PCP 30 F P1001 at 37.2 weeks admitted today for induction of labor for gestational diabetes, chronic hypertension, morbid obesity and trial of labor. Allergies Allergy/AdvReac Type Severity Reaction Status Date / Time No Known Allergies Allergy Unverified 09/13/20 11:39 Home Medications Medication Instructions Recorded Confirmed Type vit no.95-ferrous 1 tab PO DAILY 09/13/20 04/11/21 History fumarate 28 mg-folic acid 800 mcg tablet () Lantus Solostar U-100 Insulin 45 units SUBCUT HS 04/11/21 04/11/21 History aspirin 81 mg tablet,delayed 81 mg PO DAILY 04/11/21 04/11/21 History release (Aspirin Low Dose) cyanocobalamin (vitamin B-12) 1,000 mcg PO DAILY 04/11/21 04/11/21 History 1,000 mcg tablet (Vitamin B-12) iron,carbonyl 65 mg-vitamin C 125 1 tab PO DAILY 04/11/21 04/11/21 History mg tablet,delayed release (Vitron-C) sertraline 50 mg tablet (Zoloft) 75 mg PO DAILY 04/11/21 04/11/21 History Patient History Medical History Anxiety Asthma Cholecystitis, acute with cholelithiasis Former cigarette smoker Gestational diabetes Gestational hypertension Morbid obesity Surgical History History of laparoscopic cholecystectomy Previous section Family History Brother Pulmonary embolism Mother Hypertension Father FH: kidney cancer Social History Smoking Status: Former smoker Tobacco Type: Cigarettes Hx Alcohol Use: No Hx Substance Use: No Preferred Language: Nepali Emergency Management Director Required: No Beliefs That Will Affect Care: None marital status: Single Current Living Situation: Significant Other current occupational status: employed current occupation: Home [employer] Feels Safe at Home: Yes Safety Concerns: Feels Safe At This Time Gender Identity: Female OB History Prior for intolerance to labor PAWN BROKER History neg Review of Systems All systems reviewed & are unremarkable except as noted in HPI & below Physical Exam Constitutional: WD/WN, vitals as above + morbidly obese Eyes: PERRL, conjunctivae normal, anicteric sclerae denies any blurred vision or any visual disturbances Cardiovascular: RRR, no murmur, no edema Skin: no rashes, warm and dry Neurologic: patellar DTR's 2+ bilat, sensation intact Psychiatric: A+Ox3, euthymic affect Genitourinary: no vaginal lesions, no adnexal mass normal external appearance OB Exam Abdomen: + fundal height and + vertex Manual OB Exam: + cervical dilation (closed), + cervical effacement 50% and + station high OB Exam Monitor Tracing: + external FHT monitor used, + external uterine monitor used, + category I and + normal FHT variability cervix posterior, firm, unripe Results & Data ([facility]) Vital Signs (Past 12 Hours) Vital Signs Temp Pulse Resp BP 04/11/21 08:00 36.9 C 117 H 20 148/86 H Code Status & VTE Plan VTE Prophylaxis Plan VTE Prophylaxis will be ordered: No Monitoring External Monitor Cat 1
[2021-04-11] MEDS ORDERED: INSULIN REGULAR 250 UNITS in SODIUM CHLORIDE 0.9% 247.5 ML IV PRN (09:31)
[2021-04-11] MEDS ORDERED: DEXTROSE 5% 1,000 ML IV PRN (09:31)
[2021-04-11] MEDS ORDERED: DEXTROSE 50% 50 ML SYRINGE IV PRN (09:31)
[2021-04-11] MEDS ORDERED: SODIUM CHLORIDE 0.9% 1000ML 1,000 ML IV PRN (09:31)
[2021-04-11] MEDS ORDERED: GLUCAGON FOR INJ 1 MG VIAL IM PRN (09:45)
[2021-04-11] MEDS ORDERED: GLUCOSE 40% GEL 15 GM TUBE PO PRN (09:45)
[2021-04-11] MEDS ORDERED: CARBOHYDRATES FOR HYPOGLYCEMIA PO PRN (09:45)
[2021-04-11] MEDS ORDERED: GLUCOSE 10 TABS/TUBE PO PRN (09:45)
[2021-04-11 09:47] LABS: INR 0.9 (0.9-1.1); Prothrombin Time 9.3 Seconds (9.0-12.0)
[2021-04-11 09:55] LABS: Alanine Aminotransferase 9 U/L (7-52); Albumin Globulin Ratio 0.8 (0.9-2); Albumin Level 2.7 gm/dl (3.4-5.0); Alkaline Phosphatase 99 U/L (34-104); Anion Gap 8 (3-11); Aspartate Aminotransferase 10 U/L (13-39); Bilirubin,Total 0.2 mg/dl (0.2-1.0); Blood Urea Nitrogen 11 mg/dl (6-23); Calcium 8.5 mg/dl (8.5-10.1); Carbon Dioxide 18 mmol/L (21-32); Chloride 110 mmol/L (98-107); Creatinine Clr Calc Pharmacy 230.8 ml/min; Est GFR (African American) > 150.0 ml/min; Est GFR (Non-African American) 129.9 ml/min; Globulin 3.2 gm/dl (2.5-4.0); Glucose 176 mg/dl (70-99(Fasting)); Potassium 3.8 mmol/L (3.5-5.1); Sodium 136 mmol/L (136-145); Total Protein 5.9 gm/dl (6.0-8.3); Uric Acid 4.2 mg/dl (2.6-7.2)
[2021-04-11] MEDS: LACTATED RINGER'S 1,000 ML IV PRN ×2 (10:57→19:49)
[2021-04-11 11:49] LABS: Creatinine Urine Random 221.3 mg/dl; Protein Creatinine Ratio Urine 1.5 (0-0.2); Total Protein Urine Random 333.3 mg/dl (0-11.9)
[2021-04-11] MEDS ORDERED: MAG SULFATE 6GM BOLUS FROM BAG IV ONE (13:32)
[2021-04-11] MEDS: MAGNESIUM SULFATE / WTR 40 GM/1,000 ML BAG IV SCH (14:00)
--- NOTE | 2021-04-11 16:53 | Anesthesiology Consultation ---
Date of Service April 11, 2021 Assessment & Plan ASA ASA4 Proposed Anesthesia Anesthesia Type: Spinal Risk / Benefits Reviewed With: PT / POA / Parent / Guardian, Accepts Plan and Informed Consent Obtained History Height/Weight Height: 5 ft 3 in Weight: 143.607 kg Allergies Allergy/AdvReac Type Severity Reaction Status Date / Time No Known Allergies Allergy Unverified 09/13/20 11:39 Medications Home Medications Medication Instructions Recorded Confirmed Last Taken vit no.95-ferrous 1 tab PO DAILY 09/13/20 04/11/21 04/11/21 06:30 fumarate 28 mg-folic acid 800 mcg tablet () Lantus Solostar U-100 Insulin 45 units SUBCUT HS 04/11/21 04/11/21 04/10/21 21:00 aspirin 81 mg tablet,delayed 81 mg PO DAILY 04/11/21 04/11/21 04/11/21 06:30 release (Aspirin Low Dose) cyanocobalamin (vitamin B-12) 1,000 mcg PO DAILY 04/11/21 04/11/21 04/11/21 06:30 1,000 mcg tablet (Vitamin B-12) iron,carbonyl 65 mg-vitamin C 125 1 tab PO DAILY 04/11/21 04/11/21 04/11/21 06 :30 mg tablet,delayed release (Vitron-C) sertraline 50 mg tablet (Zoloft) 75 mg PO DAILY 04/11/21 04/11/21 04/11/21 06:30 Active Medications Generic Name Dose Route Start Last Admin Trade Name Freq PRN Reason Stop Dose Admin Lactated Ringer's 1,000 mls @ 125 mls/hr 04/11/21 08:34 04/11/21 16:37 Lr IV 04/13/21 08:33 999 mls/hr .Q8H PRN Infusion L&D Protocol Protocol Sodium Chloride 1,000 mls @ 100 mls/hr 04/11/21 09:31 04/11/21 12:32 Nss 1000ml IV 05/11/21 09:30 0 mls/hr .Q10H PRN Infusion BSG 141 mg/dL or above Protocol Dextrose 1,000 mls @ 100 mls/hr 04/11/21 09:31 04/11/21 15:34 D5w IV 05/11/21 09:30 100 mls/hr .Q10H PRN Infusion BSG 180 or below Protocol Insulin Human Regular 250 250 mls @ 0.5 mls/hr 04/11/21 09:31 04/11/21 16:48 units/ Sodium Chloride IV 05/11/21 09:30 Infused .Q24H PRN Titration BSG 80mg/dL or ABOVE Protocol 0.5 UNITS/HR Oxytocin 30 units in 500 mls @ 10 mls/hr 04/11/21 11:10 04/11/21 16:37 Pitocin IV 04/13/21 11:09 Infused .Q24H PRN Titration Labor Induction/Augmentation Protocol 0.6 UNITS/HR Magnesium Sulfate 40 gm in 1,000 mls @ 50 mls/hr 04/11/21 13:45 04/11/21 14:3 4 Magnesium Sulfate / Wtr IV 05/11/21 13:44 50 mls/hr .Q20H NAVID Infusion NPO Date Last Intake of Fluids: 04/11/21 Time Last Intake of Fluids: 00:00 Date Last Intake of Solids: 04/11/21 Time Last Intake of Solids: 00:00 Past Medical History Medical History Anxiety Asthma Cholecystitis, acute with cholelithiasis Former cigarette smoker Gestational diabetes Gestational hypertension Morbid obesity Exercise / Class Metabolic Activity II 4-5 Yardwork/Stairs/Walk up hill Past Family History Family History Brother Pulmonary embolism Mother Hypertension Father FH: kidney cancer Past Surgical History Surgical History History of laparoscopic cholecystectomy Previous section Past Anesthesia History No Hx of Anesthesia Complications and No Family Hx of Anesthesia Complications History of PONV No Hx of PONV and No Hx of Motion Sickness Social History Smoking Status: Former smoker Smoking cigarettes per day: Quit in June 2020 Do You Dip or Chew Tobacco: No Hx Alcohol Use: No Hx Substance Use: No substance use type: does not use Review of Systems denies fever/cough/ colds/ chest pain/ SOB/ DELLA denies DELLA Physical Exam Vital Signs Last Vital Signs Temp 36.7 C 04/11/21 15:44 Pulse 96 H 04/11/21 16:29 Resp 24 04/11/21 16:01 BP 163/89 H 04/11/21 16:29 ENMT Mouth: no TMJ abnormality and no dentition abnormality Thyromental Distance: > or= 3.5 Finger Breadths Mallampati Class: II Neck neck extension not limited Respiratory normal respiratory effort; no respiratory distress Auscultation: lungs clear to auscultation bilaterally Cardiovascular Rate/Rhythm: regular rate and regular rhythm Neurologic moves all extremities Psychiatric Orientation: alert and oriented x 3 Testing Laboratory Results 04/11/21 08:39 04/11/21 09:06 PT 9.3 Seconds (9.0-12.0) 04/11/21 09:06 INR 0.9 (0.9-1.1) 04/11/21 09:06 04/11/21 04/11/21 04/11/21 15:32 14:30 13:30 POC Glucose 96 106 H 112 H 04/11/21 04/11/21 04/11/21 12:30 11:34 10:28 POC Glucose 139 H 175 H 182 H 04/11/21 09:24 POC Glucose 180 H
--- NOTE | 2021-04-11 16:58 | Labor Progress Brief Note ---
Date of Service April 11, 2021 Subjective Reason For Note: Routine Evaluation I reviewed the patient's most recent blood pressures and she is now in the severe range. She is not having any headaches or any visual changes. She is currently attempting a TOLAC and has gestational diabetes on an insulin drip. Her last was for pre-eclampsia and she only progressed to 3 cm. In view of her past obstetrical history and the fact that she is not dilated and remote from delivery I discussed that she has a poor prognosis to deliver vaginally and I recommended that she undergo a repeat section. Cat 1 FHT. Patient and her are in agreement with the plan. Consents signed. Assessment & Plan Admission and Anticipated Discharge Date Admission Date: April 11, 2021 Physical Exam Genitourinary: OB Exam Monitor Tracing: + external FHT monitor used, + ex ternal uterine monitor used, + category I and + normal FHT variability Results & Data ([facility]) Vital Signs (Past 12 Hours) Vital Signs Temp Pulse Resp BP 04/11/21 16:29 96 H 163/89 H 04/11/21 16:10 95 H 209/98 H 04/11/21 16:08 102 H 194/99 H 04/11/21 16:03 99 H 190/94 H 04/11/21 16:01 24 04/11/21 15:44 36.7 C 28 H 04/11/21 15:03 99 H 141/66 H 04/11/21 15:02 28 H 04/11/21 14:56 96 H 146/69 H 04/11/21 14:46 93 H 143/72 H 04/11/21 14:36 96 H 151/68 H 04/11/21 14:34 28 H 04/11/21 14:26 108 H 149/64 H 04/11/21 14:16 104 H 149/67 H 04/11/21 14:06 103 H 149/67 H 04/11/21 14:00 28 H 04/11/21 13:56 103 H 165/80 H 04/11/21 13:39 110 H 154/85 H 04/11/21 13:37 103 H 149/79 H 04/11/21 12:39 36.9 C 109 H 28 H 170/87 H 04/11/21 12:05 24 04/11/21 11:39 110 H 22 142/71 H 02/24/22 11:03 109 H 185/86 H 04/11/21 08:00 36.9 C 117 H 20 148/86 H Laboratory Results Laboratory Results - last 72 hr 04/11/21 04/11/21 04/11/21 08:39 09:06 09:06 WBC 10.14 RBC 3.57 L Hgb 10.7 L Hct 31.4 L MCV 88.0 MCH 30.0 MCHC 34.1 RDW Std Deviation 48.8 H RDW Coeff of Misty 15.2 H Plt Count 313 MPV 9.8 PT 9.3 INR 0.9 Sodium 136 Potassium 3.8 Chloride 110 H Carbon Dioxide 18 L Anion Gap 8 BUN 11 Creatinine 0.50 L Est Cr Clr Drug Dosing 230.8 Est GFR ( Amer) > 150.0 Est GFR (Non-Af Amer) 129.9 BUN/Creatinine Ratio 22.0 H Glucose 176 H POC Glucose Uric Acid 4.2 Calcium 8.5 Total Bilirubin 0.2 Direct Bilirubin 0.0 AST 10 L ALT 9 Alkaline Phosphatase 99 Lactate Dehydrogenase Total Protein 5.9 L Albumin 2.7 L Globulin 3.2 Albumin/Globulin Ratio 0.8 L Ur Random Creatinine U Random Total Protein Protein/Creatinin Ratio 04/11/21 04/11/21 04/11/21 09:06 09:24 10:28 WBC RBC Hgb Hct MCV MCH MCHC RDW Std Deviation RDW Coeff of Misty Plt Count MPV PT INR Sodium Potassium Chloride Carbon Dioxide Anion Gap BUN Creatinine Est Cr Clr Drug Dosing Est GFR ( Amer) Est GFR (Non-Af Amer) BUN/Creatinine Ratio Glucose POC Glucose 180 H 182 H Uric Acid Calcium Total Bilirubin Direct Bilirubin AST ALT Alkaline Phosphatase Lactate Dehydrogenase 131 Total Protein Albumin Globulin Albumin/Globulin Ratio Ur Random Creatinine U Random Total Protein Protein/Creatinin Ratio 04/11/21 04/11/21 04/11/21 10:45 11:34 12:30 WBC RBC Hgb Hct MCV MCH MCHC RDW Std Deviation RDW Coeff of Misty Plt Count MPV PT INR Sodium Potassium Chloride Carbon Dioxide Anion Gap BUN Creatinine Est Cr Clr Drug Dosing Est GFR ( Amer) Est GFR (Non-Af Amer) BUN/Creatinine Ratio Glucose POC Glucose 175 H 139 H Uric Acid Calcium Total Bilirubin Direct Bilirubin AST ALT Alkaline Phosphatase Lactate Dehydrogenase Total Protein Albumin Globulin Albumin/Globulin Ratio Ur Random Creatinine 221.3 U Random Total Protein 333.3 H Protein/Creatinin Ratio 1.5 H 04/11/21 04/11/21 04/11/21 13:30 14:30 15:32 WBC RBC Hgb Hct MCV MCH MCHC RDW Std Deviation RDW Coeff of Misty Plt Count MPV PT INR Sodium Potassium Chloride Carbon Dioxide Anion Gap BUN Creatinine Est Cr Clr Drug Dosing Est GFR ( Amer) Est GFR (Non-Af Amer) BUN/Creatinine Ratio Glucose POC Glucose 112 H 106 H 96 Uric Acid Calcium Total Bilirubin Direct Bilirubin AST ALT Alkaline Phosphatase Lactate Dehydrogenase Total Protein Albumin Globulin Albumin/Globulin Ratio Ur Random Creatinine U Random Total Protein Protein/Creatinin Ratio 04/11/21 16:32 WBC RBC Hgb Hct MCV MCH MCHC RDW Std Deviation RDW Coeff of Misty Plt Count MPV PT INR Sodium Potassium Chloride Carbon Dioxide Anion Gap BUN Creatinine Est Cr Clr Drug Dosing Est GFR ( Amer) Est GFR (Non-Af Amer) BUN/Creatinine Ratio Glucose POC Glucose 85 Uric Acid Calcium Total Bilirubin Direct Bilirubin AST ALT Alkaline Phosphatase Lactate Dehydrogenase Total Protein Albumin Globulin Albumin/Globulin Ratio Ur Random Creatinine U Random Total Protein Protein/Creatinin Ratio 04/11/21 04/11/21 04/11/21 08:39 09:06 09:06 WBC 10.14 RBC 3.57 L Hgb 10.7 L Hct 31.4 L MCV 88.0 MCH 30.0 MCHC 34.1 RDW Std Deviation 48.8 H RDW Coeff of Misty 15.2 H Plt Count 313 MPV 9.8 PT 9.3 INR 0.9 Sodium 136 Potassium 3.8 Chloride 110 H Carbon Dioxide 18 L Anion Gap 8 BUN 11 Creatinine 0.50 L Est Cr Clr Drug Dosing 230.8 Est GFR ( Amer) > 150.0 Est GFR (Non-Af Amer) 129.9 BUN/Creatinine Ratio 22.0 H Glucose 176 H POC Glucose Uric Acid 4.2 Calcium 8.5 Total Bilirubin 0.2 Direct Bilirubin 0.0 AST 10 L ALT 9 Alkaline Phosphatase 99 Lactate Dehydrogenase Total Protein 5.9 L Albumin 2.7 L Globulin 3.2 Albumin/Globulin Ratio 0.8 L Ur Random Creatinine U Random Total Protein Protein/Creatinin Ratio 04/11/21 04/11/21 04/11/21 09:06 09:24 10:28 WBC RBC Hgb Hct MCV MCH MCHC RDW Std Deviation RDW Coeff of Misty Plt Count MPV PT INR Sodium Potassium Chloride Carbon Dioxide Anion Gap BUN Creatinine Est Cr Clr Drug Dosing Est GFR ( Amer) Est GFR (Non-Af Amer) BUN/Creatinine Ratio Glucose POC Glucose 180 H 182 H Uric Acid Calcium Total Bilirubin Direct Bilirubin AST ALT Alkaline Phosphatase Lactate Dehydrogenase 131 Total Protein Albumin Globulin Albumin/Globulin Ratio Ur Random Creatinine U Random Total Protein Protein/Creatinin Ratio 04/11/21 04/11/21 04/11/21 10:45 11:34 12:30 WBC RBC Hgb Hct MCV MCH MCHC RDW Std Deviation RDW Coeff of Misty Plt Count MPV PT INR Sodium Potassium Chloride Carbon Dioxide Anion Gap BUN Creatinine Est Cr Clr Drug Dosing Est GFR ( Amer) Est GFR (Non-Af Amer) BUN/Creatinine Ratio Glucose POC Glucose 175 H 139 H Uric Acid Calcium Total Bilirubin Direct Bilirubin AST ALT Alkaline Phosphatase Lactate Dehydrogenase Total Protein Albumin Globulin Albumin/Globulin Ratio Ur Random Creatinine 221.3 U Random Total Protein 333.3 H Protein/Creatinin Ratio 1.5 H 04/11/21 04/11/21 04/11/21 13:30 14:30 15:32 WBC RBC Hgb Hct MCV MCH MCHC RDW Std Deviation RDW Coeff of Misty Plt Count MPV PT INR Sodium Potassium Chloride Carbon Dioxide Anion Gap BUN Creatinine Est Cr Clr Drug Dosing Est GFR ( Amer) Est GFR (Non-Af Amer) BUN/Creatinine Ratio Glucose POC Glucose 112 H 106 H 96 Uric Acid Calcium Total Bilirubin Direct Bilirubin AST ALT Alkaline Phosphatase Lactate Dehydrogenase Total Protein Albumin Globulin Albumin/Globulin Ratio Ur Random Creatinine U Random Total Protein Protein/Creatinin Ratio 04/11/21 16:32 WBC RBC Hgb Hct MCV MCH MCHC RDW Std Deviation RDW Coeff of Misty Plt Count MPV PT INR Sodium Potassium Chloride Carbon Dioxide Anion Gap BUN Creatinine Est Cr Clr Drug Dosing Est GFR ( Amer) Est GFR (Non-Af Amer) BUN/Creatinine Ratio Glucose POC Glucose 85 Uric Acid Calcium Total Bilirubin Direct Bilirubin AST ALT Alkaline Phosphatase Lactate Dehydrogenase Total Protein Albumin Globulin Albumin/Globulin Ratio Ur Random Creatinine U Random Total Protein Protein/Creatinin Ratio
[2021-04-11] MEDS ORDERED: LACTATED RINGER'S 1,000 ML IV SCH ×2 (17:00)
[2021-04-11] MEDS ORDERED: CITRIC ACID/SODIUM CITRATE 15 ML UDC ONE (17:01)
[2021-04-11] MEDS ORDERED: CITRIC ACID/SODIUM CITRATE 15 ML UDC PO SCH (17:15)
[2021-04-11] MEDS ORDERED: fentaNYL citrate 100 MCG/2 ML VIAL ONE (17:25)
[2021-04-11] MEDS ORDERED: OXYTOCIN 10 UNITS/ML 10ML VIAL ONE ×4 (17:25→18:29)
[2021-04-11] MEDS ORDERED: MoRPHine SULFATE PF 1 MG/ML 10 ML AMP/VIAL ONE (17:25)
[2021-04-11] MEDS ORDERED: MoRPHine SULFATE 2 MG/ML CARP IV PRN (17:41)
[2021-04-11] MEDS ORDERED: diphenhydrAMINE 50 MG/ML VIAL IV PRN (17:41)
[2021-04-11] MEDS ORDERED: ePHEDrine sulfate 50 MG/ML AMP IV PRN (17:41)
[2021-04-11] MEDS ORDERED: NALBUPHINE HCL INJ 10 MG/ML AMP IV PRN (17:41)
[2021-04-11] MEDS ORDERED: MoRPHine SULFATE PF 1 MG/ML 10 ML AMP/VIAL INT SPINAL ONE (17:41)
[2021-04-11] MEDS ORDERED: KETOROLAC 30 MG/ML VIAL IV PRN (17:41)
[2021-04-11] MEDS ORDERED: NALOXONE HCL 0.4 MG/1 ML VIAL/CARP IV PRN (17:41)
[2021-04-11] MEDS ORDERED: NALOXONE HCL 1 MG in SODIUM CHLORIDE 0.9% 1000ML 1,000 ML IV PRN (17:41)
[2021-04-11] MEDS ORDERED: ONDANSETRON INJ 2 MG/ML 2 ML VIAL IV PRN ×2 (17:41→20:16)
[2021-04-11] MEDS ORDERED: LACTATED RINGER'S 500 ML IV PRN (17:41)
[2021-04-11] MEDS ORDERED: NALOXONE HCL 0.08 MG in SYRINGE 1.8 ML IV PRN (17:41)
[2021-04-11] MEDS ORDERED: DC INTRASPINAL MORPHINE SCH (17:45)
[2021-04-11] MEDS ORDERED: SODIUM CHLORIDE 0.9% 1000ML 1,000 ML IV SCH (17:45)
[2021-04-11] MEDS ORDERED: NO NARCOTICS OR SEDATIVES SCH (17:45)
[2021-04-11] MEDS ORDERED: ONDANSETRON INJ 2 MG/ML 2 ML VIAL ONE (18:04)
--- NOTE | 2021-04-11 19:23 | Post Operative Brief Note ---
Immediate Post Op Note v1 Date of Surgery April 11, 2021 Pre & Post Diagnosis Operation Date: 04/11/21 17:30 Pre-Op Diagnosis: INDUCTION; CHRONIC HYPERTENSION; GESTATIONAL DIABETES ON INSULIN; FAILED ATTEMPT; HISTORY OF REPEAT SECTION. Post-Op Diagnosis: INDUCTION; CHRONIC HYPERTENSION; GESTATIONAL DIABETES ON INSULIN; FAILED ATTEMPT; HISTORY OF REPEAT SECTION. I identified the patient and participated in the time-out.: Yes Procedure Operation Date: 04/11/21 17:30 Actual Procedures p Section in LD; DELIVERY OF LIVE MALE AT 1819 - Levi Ballard MD Surgeon Levi Ballard MD Baccarat Manager Dr. Morocho Estimated Blood Loss 500 Findings Consistent with Post-Op Diagnosis live male Apgars 7/9 6 lbs. 9oz. Fluids LR 600 ml Specimens cord blood placenta Drains Boss Catheter (clear yellow urine) Anesthesia Type Spinal Complications none Disposition Accompanied Patient To Recovery: Yes Disposition: L&D Overlapping Procedure I was present for: the critical portions of procedure. I was immediately available: during the entire case. Back up surgeon: used during listed procedure.
--- NOTE | 2021-04-11 20:02 | Anesthesiology Progress Note ---
Date of Service April 11, 2021 Anesthesia Post Procedure Vital Signs Vital Signs: Temp Pulse Resp BP Pulse Ox 04/11/21 19:56 77 98 04/11/21 19:54 77 118/78 04/11/21 19:51 77 98 04/11/21 19:46 81 98 04/11/21 19:43 85 114/56 L 04/11/21 19:41 87 98 04/11/21 19:36 90 97 04/11/21 19:32 86 117/70 04/11/21 19:31 86 99 04/11/21 19:26 101 H 99 04/11/21 19:22 78 119/59 L 04/11/21 19:21 83 99 04/11/21 19:16 98 H 99 04/11/21 19:11 87 119/59 L 98 04/11/21 17:03 88 166/91 H 04/11/21 16:29 96 H 163/89 H 04/11/21 16:10 95 H 209/98 H 04/11/21 16:08 102 H 194/99 H 04/11/21 16:03 99 H 190/94 H 04/11/21 16:01 24 04/11/21 15:44 36.7 C 28 H 04/11/21 15:03 99 H 141/66 H 04/11/21 15:02 28 H 04/11/21 14:56 96 H 146/69 H 04/11/21 14:46 93 H 143/72 H 04/11/21 14:36 96 H 151/68 H 04/11/21 14:34 28 H 04/11/21 14:26 108 H 149/64 H 04/11/21 14:16 104 H 149/67 H 04/11/21 14:06 103 H 149/67 H 04/11/21 14:00 28 H 04/11/21 13:56 103 H 165/80 H 04/11/21 13:39 110 H 154/85 H 04/11/21 13:37 103 H 149/79 H 04/11/21 12:39 36.9 C 109 H 28 H 170/87 H 04/11/21 12:05 24 04/11/21 11:39 110 H 22 142/71 H 04/11/21 11:03 109 H 185/86 H 04/11/21 08:00 36.9 C 117 H 20 148/86 H Transfer of Care Handoff Completed per policy Notes Mental Status: alert / awake / arousable and participated in evaluation Patient Amnestic to Procedure: Yes Nausea / Vomiting: adequately controlled Pain: adequately controlled Airway Patency, RR, SpO2: stable & adequate BP & HR: stable & adequate Hydration State: stable & adequate Anesthetic Complications: no major complications apparent and Pt Satisfied with anesthetic care
[2021-04-11] MEDS ORDERED: PROMETHAZINE HCL 25 MG in SODIUM CHLORIDE 0.9% 50 ML IV PRN (20:16)
[2021-04-11] MEDS ORDERED: BENZOCAINE 20% AER SPR 82.5 GM CAN EXT PRN (20:16)
[2021-04-11] MEDS ORDERED: SENNA 8.6 MG TAB PO PRN (20:16)
[2021-04-11] MEDS ORDERED: MAGNESIUM HYDROXIDE SUSP 30 ML UDC PO PRN (20:16)
[2021-04-11] MEDS ORDERED: DIPHTHERIA/TETANUS/PERTUSSIS 0.5 ML SYR/VIAL IM ONE (20:16)
[2021-04-11] MEDS ORDERED: HYDROCORTISONE ACETATE 25 MG SUPP PR PRN (20:16)
[2021-04-11] MEDS ORDERED: OXYTOCIN 20 UNITS in LACTATED RINGER'S 1,000 ML IV SCH (20:30)
[2021-04-11] MEDS: OXYTOCIN 20 UNITS in LACTATED RINGER'S 1,000 ML IV SCH (21:44)
[2021-04-11] MEDS: SIMETHICONE 80 MG CHEW PO SCH (22:35)
[2021-04-11] MEDS: DOCUSATE SODIUM 100 MG CAP PO SCH (22:35)
--- NOTE | 2021-04-11 23:38 | Operative Report (OR) ---
DATE OF SURGERY: 04/11/2021. PREOPERATIVE DIAGNOSES: Gestational diabetes, on insulin, chronic hypertension, preeclampsia with se katrin features, morbid obesity and failed vaginal after . POSTOPERATIVE DIAGNOSES: Gestational diabetes, on insulin, chronic hypertension, preeclampsia with s evere features, morbid obesity and failed vaginal after . PROCEDURE: Repeat section, low segment transverse. SURGEON: Levi Ballard MD. CVICU RN: Doyle Morocho MD. ANESTHESIA: Spinal. CLINICAL HISTORY: The patient is a 30-year-old female, para 1-0-0-1, at 37 weeks and 2 days who was admitted for a trial of labor after . The patient had gestational diabetes, on insulin. Her blood sugars were out of control. She was placed on an insulin drip controlling her blood sugars. She also was spilling protein and with her chronic hypertension, she has superimposed preeclampsia wi th severe features. She was started on magnesium and due to the fact that she had an elevated BMI an d remote from delivery, decision was made that the likelihood and possibility of a successful we re less than 50%. I counseled the patient and her , and she was in agreement with a section. DESCRIPTION OF PROCEDURE: Under satisfactory spinal anesthesia, the patient was prepped and draped i n the usual sterile fashion. Timeout was called. She received antibiotics preop and a timeout was c alled prior to the start of the procedure. The patient was tested for adequate anesthesia. A low tr ansverse Pfannenstiel incision through a prior scar was then made, carrying the incision down into th e abdomen in successive layers without difficulty. Upon entering into the peritoneal cavity, the ut erus was noted to be dextrorotated. The amniotic sac was nicked and the fluid was clear. A bladder flap was made. The Cameron retractor was placed abdominally for exposure. After the sac was nicked, the incision was widened in the AP diameter with blunt dissection and the delivery was acco mplished from the vertex presentation with the aid of fundal pressure, delivering a live male. The c ord was doubly clamped and cut. There was a 1 minute cord delay. Apgars were 7 and 9 and weig ht was 6 pounds 9 ounces. Cord blood was obtained. Placenta delivered spontaneously and intact and submitted to pathology as a separate specimen. Uterus was then exteriorized. Ring forceps were then placed on both angles in the inferior margin. Uterus was closed in a double layer closure starting with 0 Vicryl suture in a continuous interlockin g fashion followed by second imbricating suture. The initial sponge, needle, and instrument count we re found to be correct. The gutters and the contents of the pelvic and abdominal cavity were then ir rigated to clear. Tubes, ovaries bilaterally were found to be within normal limits. After the uteru s was placed back into the normal anatomical position, the Cameron retractor was removed. The fascia was then repaired from both sides using #1 PDS suture. Subcuticular space was irrigated and then kali sed with 2-0 plain suture and the skin was reapproximated using magali. RUSH dressing was applied. Final sponge, needle and instrument count were found to be correct. EBL was 500 mL. The patient was then placed supine on a stretcher and taken to recovery room in stable condition. Her magnesium was continued throughout the course of surgery and the insulin drip will be continued once she is on the floor. Dr. Morocho was present for the entire case for assistance at retraction, delivery of the head with fun adithya pressure, helped with closure and essential retraction due to the patient's comorbidity of morbid obesity. Job ID: [id number]
[2021-04-12] MEDS: LACTATED RINGER'S 1,000 ML IV SCH ×3 (03:20→16:50)
[2021-04-12] MEDS: OXYTOCIN 20 UNITS in LACTATED RINGER'S 1,000 ML IV SCH (06:24)
[2021-04-12] MEDS: MAGNESIUM SULFATE / WTR 40 GM/1,000 ML BAG IV SCH (06:32)
[2021-04-12 07:24] LABS: Hematocrit (blood only) 30.3 % (37-47); Hemoglobin 10.2 g/dL (12.0-16.0); Mean Corpuscular Hemoglobin 29.6 pg (25-34); Mean Corpuscular Hgb Conc 33.7 g/dL (32-36); Mean Corpuscular Volume 87.8 fL (80-100); Mean Platelet Volume 9.8 fL (7.4-10.4); Platelet Count 275 K/uL (130-400); RDW Coefficient of Variation 15.2 % (11.5-14.5); RDW Standard Deviation 48.5 fL (36.4-46.3); Red Blood Count 3.45 M/uL (4.2-5.4); White Blood Count 11.63 K/uL (4.8-10.8)
[2021-04-12 07:51] LABS: Basophils # (auto) 0.01 K/uL (0-0.2); Basophils % (auto) 0.1 %; Eosinophils # (auto) 0.18 K/uL (0-0.5); Eosinophils % (auto) 1.5 %; Immature Granulocytes # (auto) 0.03 K/uL (0.00-0.02); Immature Granulocytes % (auto) 0.3 %; Lymphocytes # (auto) 1.68 K/uL (1.2-3.4); Lymphocytes % (auto) 14.4 %; Monocytes # (auto) 0.45 K/uL (0.11-0.59); Monocytes % (auto) 3.9 %; Neutrophils # (auto) 9.28 K/uL (1.4-6.5); Neutrophils % (auto) 79.8 %
--- NOTE | 2021-04-12 08:27 | Obstetrical Progress Note ---
Date of Service April 12, 2021 Assessment & Plan Admission and Anticipated Discharge Date Admission Date: April 11, 2021 Subjective Patient is seen and examined. She feels well, no complaints. Pain is under control with oral meds. On IV magnesium, not OOB yet Boss is draining clear urine Tolerating clear diet with out N&V Flatus neg Bleeding is minimal No WATTERS/ Change in vision/ fever/ chills/ CP/ SOB/ N&V/ Leg pain Breast and bottle feeding without problems Vital Signs Temp Pulse Resp BP Pulse Ox 04/12/21 08:21 98 H 99 04/12/21 08:17 102 H 146/79 H 04/12/21 08:16 107 H 99 04/12/21 08:11 101 H 99 04/12/21 08:06 94 H 99 04/12/21 08:02 92 H 138/73 04/12/21 08:01 94 H 99 04/12/21 07:56 103 H 98 04/12/21 07:51 104 H 100 04/12/21 07:46 94 H 99 04/12/21 07:41 99 H 99 04/12/21 07:36 97 H 99 04/12/21 07:31 95 H 99 04/12/21 07:26 92 H 100 04/12/21 07:21 95 H 99 04/12/21 07:16 102 H 99 04/12/21 07:11 107 H 99 04/12/21 07:06 102 H 99 04/12/21 07:01 97 H 99 04/12/21 06:56 99 H 99 04/12/21 06:51 102 H 99 04/12/21 06:46 111 H 98 04/12/21 06:41 101 H 99 04/12/21 06:36 104 H 99 04/12/21 06:31 99 H 98 04/12/21 06:26 107 H 18 98 04/12/21 06:21 110 H 99 04/12/21 06:17 96 H 131/68 04/12/21 06:16 99 H 96 04/12/21 06:11 106 H 96 04/12/21 06:09 97 H 94 04/12/21 06:06 99 H 94 04/12/21 06:03 99 H 94 04/12/21 06:01 104 H 94 04/12/21 05:57 101 H 93 04/12/21 05:56 94 H 96 04/12/21 05:52 96 H 94 04/12/21 05:51 97 H 95 04/12/21 05:47 99 H 94 04/12/21 05:46 98 H 96 04/12/21 05:41 95 H 96 04/12/21 05:36 102 H 97 04/12/21 05:31 97 H 95 04/12/21 05:30 16 95 04/12/21 05:29 96 H 94 04/12/21 05:26 95 H 95 04/12/21 05:21 94 H 95 04/12/21 05:20 96 H 94 04/12/21 05:17 95 H 132/64 04/12/21 05:16 96 H 97 04/12/21 05:15 99 H 93 04/12/21 05:11 96 H 96 04/12/21 05:06 93 H 96 04/12/21 05:01 97 H 97 04/12/21 04:56 100 H 97 04/12/21 04:51 101 H 97 04/12/21 04:46 97 H 97 04/12/21 04:41 99 H 98 04/12/21 04:36 102 H 97 04/12/21 04:31 95 H 96 04/12/21 04:30 18 100 04/12/21 04:26 96 H 96 04/12/21 04:21 92 H 96 04/12/21 04:17 93 H 143/74 H 04/12/21 04:16 93 H 98 04/12/21 04:11 93 H 98 04/12/21 04:06 92 H 98 04/12/21 04:01 99 H 98 04/12/21 03:56 96 H 98 04/12/21 03:51 94 H 99 04/12/21 03:46 93 H 99 04/12/21 03:41 84 98 04/12/21 03:36 90 99 04/12/21 03:31 91 H 98 04/12/21 03:26 85 100 04/12/21 03:21 95 H 100 04/12/21 03:18 83 140/78 04/12/21 03:16 85 100 04/12/21 03:15 36.7 C 18 100 04/12/21 03:11 95 H 99 04/12/21 03:06 83 96 04/12/21 03:01 84 97 04/12/21 02:56 86 98 04/12/21 02:51 85 99 04/12/21 02:46 87 99 04/12/21 02:41 79 99 04/12/21 02:36 82 99 04/12/21 02:31 84 99 04/12/21 02:26 101 H 100 04/12/21 02:21 82 98 04/12/21 02:17 82 136/73 04/12/21 02:16 83 99 04/12/21 02:13 20 100 04/12/21 02:11 90 100 04/12/21 02:06 88 99 04/12/21 02:01 84 100 04/12/21 01:56 90 100 04/12/21 01:51 93 H 100 04/12/21 01:46 101 H 100 04/12/21 01:41 107 H 100 04/12/21 01:36 88 100 04/12/21 01:31 97 H 100 04/12/21 01:26 90 100 04/12/21 01:21 88 18 100 04/12/21 01:17 101 H 134/76 04/12/21 01:16 109 H 100 04/12/21 01:11 98 H 100 04/12/21 01:06 79 98 04/12/21 01:01 82 98 04/12/21 00:56 76 100 04/12/21 00:51 82 99 04/12/21 00:46 85 100 04/12/21 00:42 82 144/75 H 04/12/21 00:41 86 100 04/12/21 00:36 86 99 04/12/21 00:31 84 99 04/12/21 00:26 83 100 04/12/21 00:21 81 100 04/12/21 00:16 83 100 04/12/21 00:11 83 18 100 04/12/21 00:06 88 100 04/12/21 00:01 87 100 04/11/21 23:56 88 100 04/11/21 23:51 101 H 100 04/11/21 23:46 78 100 04/11/21 23:41 81 100 02 23:36 95 H 99 04/11/21 23:31 86 100 04/11/21 23:26 75 99 04/11/21 23:21 100 H 98 04/11/21 23:17 79 142/77 H 04/11/21 23:16 84 99 04/11/21 23:15 36.8 C 16 100 04/11/21 23:11 79 100 04/11/21 23:06 73 99 04/11/21 23:01 73 100 04/11/21 22:56 88 99 04/11/21 22:51 93 H 99 04/11/21 22:48 86 133/76 04/11/21 22:46 85 97 04/11/21 22:41 74 99 04/11/21 22:36 80 98 04/11/21 22:31 80 99 04/11/21 22:26 83 99 04/11/21 22:21 89 99 04/11/21 22:16 86 99 04/11/21 22:15 16 99 04/11/21 22:11 80 99 04/11/21 22:06 86 100 04/11/21 22:01 36.8 C 88 18 99 04/11/21 21:56 78 100 04/11/21 21:51 76 100 04/11/21 21:46 89 99 04/11/21 21:41 80 99 04/11/21 21:36 77 99 04/11/21 21:31 75 99 04/11/21 21:26 78 99 04/11/21 21:21 78 100 04/11/21 21:16 85 100 04/11/21 21:15 18 99 04/11/21 21:14 78 143/79 H 04/11/21 21:12 20 04/11/21 21:11 75 100 04/11/21 21:06 83 99 04/11/21 21:01 69 99 04/11/21 20:59 65 137/78 04/11/21 20:56 72 99 04/11/21 20:51 72 100 04/11/21 20:46 77 99 04/11/21 20:42 18 04/11/21 20:41 78 99 04/11/21 20:36 72 99 04/11/21 20:31 77 99 04/11/21 20:26 75 99 Intake & Output 04/11/21 04/12/21 04/12/21 22:59 06:59 14:59 Intake Total 2673.508 / 5829.292 2369.917 / 5829.292 150.000 / 150.000 Output Total 1625 / 3325 1400 / 3325 Balance 1048.508 / 2504.292 969.917 / 2504.292 150.000 / 150.000 Weight 143.607 kg Intake: IV 2073.508 / 5229.292 2369.917 / 5229.292 150.000 / 150.000 Dextrose 5% 1,000 ml @ 100 mls/ 198.333 / 198.333 hr IV .Q10H PRN Rx#:[id number] Insulin Regular 250 units In 2.658 / 8.442 Sodium Chloride 0.9% 247.5 ml @ 0.5 UNITS/HR 0.5 mls/hr IV . Q24H PRN Rx#:[id number] Lactated Ringer's 1,000 ml @ 1547.917 / 2803.750 803.75 / 2803.750 40 / 40 125 mls/hr IV .Q8H [facility] Rx#: [id number] Magnesium Sulfate / Wtr 40 gm 234.167 / 968.334 564.167 / 968.334 26.667 / 26.667 In 1,000 ml @ 50 mls/hr IV . Q20H [facility] Rx#:[id number] Oxytocin 20 units In Lactated 1002 / 1002 83.333 / 83.333 Ringer's 1,000 ml @ 125 mls/hr IV .Q8H1M [facility] Rx#:[id number] Oxytocin 30 units In 500 ml @ 0 17.933 / 28.433 .6 UNITS/HR 10 mls/hr IV .Q24H PRN Rx#:[id number] ceFAZolin 3000MG 72.5 ml @ 130 72.5 / 72.5 mls/hr IV 1715 [facility] Rx#:[id number] IV Perioperative 600 / 600 Output: Estimated Blood Loss 500 / 500 Urine Amount (Catheter) 1125 / 2775 1400 / 2775 Boss/Indwelling 1125 / 2775 1400 / 2775 Lab Results 04/11/21 04/11/21 04/11/21 Range/Units 08:39 09:06 09:06 WBC 10.14 (4.8-10.8) K/uL RBC 3.57 L (4.2-5.4) M/uL Hgb 10.7 L (12.0-16.0) g/dL Hct 31.4 L (37-47) % MCV 88.0 (80-100) fL MCH 30.0 (25-34) pg MCHC 34.1 (32-36) g/dL RDW Std Deviation 48.8 H (36.4-46.3) fL RDW Coeff of Misty 15.2 H (11.5-14.5) % Plt Count 313 (130-400) K/uL MPV 9.8 (7.4-10.4) fL Immature Gran % (Auto) % Neut % (Auto) % Lymph % (Auto) % [place] % (Auto) % Eos % (Auto) % Baso % (Auto) % Neut # (Auto) (1.4-6.5) K/uL Lymph # (Auto) (1.2-3.4) K/uL [place] # (Auto) (0.11-0.59) K/uL Eos # (Auto) (0-0.5) K/uL Baso # (Auto) (0-0.2) K/uL Immature Gran # (Auto) (0.00-0.02) K/uL PT 9.3 (9.0-12.0) Seconds INR 0.9 (0.9-1.1) Sodium 136 (136-145) mmol/L Potassium 3.8 (3.5-5.1) mmol/L Chloride 110 H (98-107) mmol/L Carbon Dioxide 18 L (21-32) mmol/L Anion Gap 8 (3-11) BUN 11 (6-23) mg/dl Creatinine 0.50 L (0.6-1.2) mg/dl Est Cr Clr Drug Dosing 230.8 ml/min Est GFR ( Amer) > 150.0 ml/min Est GFR (Non-Af Amer) 129.9 ml/min BUN/Creatinine Ratio 22.0 H (10-20) Glucose 176 H (70-99(Fasting)) mg/dl POC Glucose (70-99) mg/dl Uric Acid 4.2 (2.6-7.2) mg/dl Calcium 8.5 (8.5-10.1) mg/dl Magnesium (Sulf Ther) (4.0-8.0) mg/dL Total Bilirubin 0.2 (0.2-1.0) mg/dl Direct Bilirubin 0.0 (0-0.2) mg/dl AST 10 L (13-39) U/L ALT 9 (7-52) U/L Alkaline Phosphatase 99 (34-104) U/L Lactate Dehydrogenase (86-244) U/L Total Protein 5.9 L (6.0-8.3) gm/dl Albumin 2.7 L (3.4-5.0) gm/dl Globulin 3.2 (2.5-4.0) gm/dl Albumin/Globulin Ratio 0.8 L (0.9-2) Ur Random Creatinine mg/dl U Random Total Protein (0-11.9) mg/dl Protein/Creatinin Ratio (0-0.2) 04/11/21 04/11/21 04/11/21 Range/Units 09:06 09:24 10:28 WBC (4.8-10.8) K/uL RBC (4.2-5.4) M/uL Hgb (12.0-16.0) g/dL Hct (37-47) % MCV (80-100) fL MCH (25-34) pg MCHC (32-36) g/dL RDW Std Deviation (36.4-46.3) fL RDW Coeff of Misty (11.5-14.5) % Plt Count (130-400) K/uL MPV (7.4-10.4) fL Immature Gran % (Auto) % Neut % (Auto) % Lymph % (Auto) % [place] % (Auto) % Eos % (Auto) % Baso % (Auto) % Neut # (Auto) (1.4-6.5) K/uL Lymph # (Auto) (1.2-3.4) K/uL [place] # (Auto) (0.11-0.59) K/uL Eos # (Auto) (0-0.5) K/uL Baso # (Auto) (0-0.2) K/uL Immature Gran # (Auto) (0.00-0.02) K/uL PT (9.0-12.0) Seconds INR (0.9-1.1) Sodium (136-145) mmol/L Potassium (3.5-5.1) mmol/L Chloride (98-107) mmol/L Carbon Dioxide (21-32) mmol/L Anion Gap (3-11) BUN (6-23) mg/dl Creatinine (0.6-1.2) mg/dl Est Cr Clr Drug Dosing ml/min Est GFR ( Amer) ml/min Est GFR (Non-Af Amer) ml/min BUN/Creatinine Ratio (10-20) Glucose (70-99(Fasting)) mg/dl POC Glucose 180 H 182 H (70-99) mg/dl Uric Acid (2.6-7.2) mg/dl Calcium (8.5-10.1) mg/dl Magnesium (Sulf Ther) (4.0-8.0) mg/dL Total Bilirubin (0.2-1.0) mg/dl Direct Bilirubin (0-0.2) mg/dl AST (13-39) U/L ALT (7-52) U/L Alkaline Phosphatase (34-104) U/L Lactate Dehydrogenase 131 (86-244) U/L Total Protein (6.0-8.3) gm/dl Albumin (3.4-5.0) gm/dl Globulin (2.5-4.0) gm/dl Albumin/Globulin Ratio (0.9-2) Ur Random Creatinine mg/dl U Random Total Protein (0-11.9) mg/dl Protein/Creatinin Ratio (0-0.2) 04/11/21 04/11/21 04/11/21 Range/Units 10:45 11:34 12:30 WBC (4.8-10.8) K/uL RBC (4.2-5.4) M/uL Hgb (12.0-16.0) g/dL Hct (37-47) % MCV (80-100) fL MCH (25-34) pg MCHC (32-36) g/dL RDW Std Deviation (36.4-46.3) fL RDW Coeff of Misty (11.5-14.5) % Plt Count (130-400) K/uL MPV (7.4-10.4) fL Immature Gran % (Auto) % Neut % (Auto) % Lymph % (Auto) % [place] % (Auto) % Eos % (Auto) % Baso % (Auto) % Neut # (Auto) (1.4-6.5) K/uL Lymph # (Auto) (1.2-3.4) K/uL [place] # (Auto) (0.11-0.59) K/uL Eos # (Auto) (0-0.5) K/uL Baso # (Auto) (0-0.2) K/uL Immature Gran # (Auto) (0.00-0.02) K/uL PT (9.0-12.0) Seconds INR (0.9-1.1) Sodium (136-145) mmol/L Potassium (3.5-5.1) mmol/L Chloride (98-107) mmol/L Carbon Dioxide (21-32) mmol/L Anion Gap (3-11) BUN (6-23) mg/dl Creatinine (0.6-1.2) mg/dl Est Cr Clr Drug Dosing ml/min Est GFR ( Amer) ml/min Est GFR (Non-Af Amer) ml/min BUN/Creatinine Ratio (10-20) Glucose (70-99(Fasting)) mg/dl POC Glucose 175 H 139 H (70-99) mg/dl Uric Acid (2.6-7.2) mg/dl Calcium (8.5-10.1) mg/dl Magnesium (Sulf Ther) (4.0-8.0) mg/dL Total Bilirubin (0.2-1.0) mg/dl Direct Bilirubin (0-0.2) mg/dl AST (13-39) U/L ALT (7-52) U/L Alkaline Phosphatase (34-104) U/L Lactate Dehydrogenase (86-244) U/L Total Protein (6.0-8.3) gm/dl Albumin (3.4-5.0) gm/dl Globulin (2.5-4.0) gm/dl Albumin/Globulin Ratio (0.9-2) Ur Random Creatinine 221.3 mg/dl U Random Total Protein 333.3 H (0-11.9) mg/dl Protein/Creatinin Ratio 1.5 H (0-0.2) 04/11/21 04/11/21 04/11/21 Range/Units 13:30 14:30 15:32 WBC (4.8-10.8) K/uL RBC (4.2-5.4) M/uL Hgb (12.0-16.0) g/dL Hct (37-47) % MCV (80-100) fL MCH (25-34) pg MCHC (32-36) g/dL RDW Std Deviation (36.4-46.3) fL RDW Coeff of Misty (11.5-14.5) % Plt Count (130-400) K/uL MPV (7.4-10.4) fL Immature Gran % (Auto) % Neut % (Auto) % Lymph % (Auto) % [place] % (Auto) % Eos % (Auto) % Baso % (Auto) % Neut # (Auto) (1.4-6.5) K/uL Lymph # (Auto) (1.2-3.4) K/uL [place] # (Auto) (0.11-0.59) K/uL Eos # (Auto) (0-0.5) K/uL Baso # (Auto) (0-0.2) K/uL Immature Gran # (Auto) (0.00-0.02) K/uL PT (9.0-12.0) Seconds INR (0.9-1.1) Sodium (136-145) mmol/L Potassium (3.5-5.1) mmol/L Chloride (98-107) mmol/L Carbon Dioxide (21-32) mmol/L Anion Gap (3-11) BUN (6-23) mg/dl Creatinine (0.6-1.2) mg/dl Est Cr Clr Drug Dosing ml/min Est GFR ( Amer) ml/min Est GFR (Non-Af Amer) ml/min BUN/Creatinine Ratio (10-20) Glucose (70-99(Fasting)) mg/dl POC Glucose 112 H 106 H 96 (70-99) mg/dl Uric Acid (2.6-7.2) mg/dl Calcium (8.5-10.1) mg/dl Magnesium (Sulf Ther) (4.0-8.0) mg/dL Total Bilirubin (0.2-1.0) mg/dl Direct Bilirubin (0-0.2) mg/dl AST (13-39) U/L ALT (7-52) U/L Alkaline Phosphatase (34-104) U/L Lactate Dehydrogenase (86-244) U/L Total Protein (6.0-8.3) gm/dl Albumin (3.4-5.0) gm/dl Globulin (2.5-4.0) gm/dl Albumin/Globulin Ratio (0.9-2) Ur Random Creatinine mg/dl U Random Total Protein (0-11.9) mg/dl Protein/Creatinin Ratio (0-0.2) 04/11/21 04/11/21 04/11/21 Range/Units 16:32 19:27 19:50 WBC (4.8-10.8) K/uL RBC (4.2-5.4) M/uL Hgb (12.0-16.0) g/dL Hct (37-47) % MCV (80-100) fL MCH (25-34) pg MCHC (32-36) g/dL RDW Std Deviation (36.4-46.3) fL RDW Coeff of Misty (11.5-14.5) % Plt Count (130-400) K/uL MPV (7.4-10.4) fL Immature Gran % (Auto) % Neut % (Auto) % Lymph % (Auto) % [place] % (Auto) % Eos % (Auto) % Baso % (Auto) % Neut # (Auto) (1.4-6.5) K/uL Lymph # (Auto) (1.2-3.4) K/uL [place] # (Auto) (0.11-0.59) K/uL Eos # (Auto) (0-0.5) K/uL Baso # (Auto) (0-0.2) K/uL Immature Gran # (Auto) (0.00-0.02) K/uL PT (9.0-12.0) Seconds INR (0.9-1.1) Sodium (136-145) mmol/L Potassium (3.5-5.1) mmol/L Chloride (98-107) mmol/L Carbon Dioxide (21-32) mmol/L Anion Gap (3-11) BUN (6-23) mg/dl Creatinine (0.6-1.2) mg/dl Est Cr Clr Drug Dosing ml/min Est GFR ( Amer) ml/min Est GFR (Non-Af Amer) ml/min BUN/Creatinine Ratio (10-20) Glucose (70-99(Fasting)) mg/dl POC Glucose 85 88 (70-99) mg/dl Uric Acid (2.6-7.2) mg/dl Calcium (8.5-10.1) mg/dl Magnesium (Sulf Ther) 3.6 L (4.0-8.0) mg/dL Total Bilirubin (0.2-1.0) mg/dl Direct Bilirubin (0-0.2) mg/dl AST (13-39) U/L ALT (7-52) U/L Alkaline Phosphatase (34-104) U/L Lactate Dehydrogenase (86-244) U/L Total Protein (6.0-8.3) gm/dl Albumin (3.4-5.0) gm/dl Globulin (2.5-4.0) gm/dl Albumin/Globulin Ratio (0.9-2) Ur Random Creatinine mg/dl U Random Total Protein (0-11.9) mg/dl Protein/Creatinin Ratio (0-0.2) 04/11/21 04/11/21 04/12/21 Range/Units 20:41 21:47 06:49 WBC 11.63 H (4.8-10.8) K/uL RBC 3.45 L (4.2-5.4) M/uL Hgb 10.2 L (12.0-16.0) g/dL Hct 30.3 L (37-47) % MCV 87.8 (80-100) fL MCH 29.6 (25-34) pg MCHC 33.7 (32-36) g/dL RDW Std Deviation 48.5 H (36.4-46.3) fL RDW Coeff of Misty 15.2 H (11.5-14.5) % Plt Count 275 (130-400) K/uL MPV 9.8 (7.4-10.4) fL Immature Gran % (Auto) 0.3 % Neut % (Auto) 79.8 % Lymph % (Auto) 14.4 % [place] % (Auto) 3.9 % Eos % (Auto) 1.5 % Baso % (Auto) 0.1 % Neut # (Auto) 9.28 H (1.4-6.5) K/uL Lymph # (Auto) 1.68 (1.2-3.4) K/uL [place] # (Auto) 0.45 (0.11-0.59) K/uL Eos # (Auto) 0.18 (0-0.5) K/uL Baso # (Auto) 0.01 (0-0.2) K/uL Immature Gran # (Auto) 0.03 H (0.00-0.02) K/uL PT (9.0-12.0) Seconds INR (0.9-1.1) Sodium (136-145) mmol/L Potassium (3.5-5.1) mmol/L Chloride (98-107) mmol/L Carbon Dioxide (21-32) mmol/L Anion Gap (3-11) BUN (6-23) mg/dl Creatinine (0.6-1.2) mg/dl Est Cr Clr Drug Dosing ml/min Est GFR ( Amer) ml/min Est GFR (Non-Af Amer) ml/min BUN/Creatinine Ratio (10-20) Glucose (70-99(Fasting)) mg/dl POC Glucose 84 77 (70-99) mg/dl Uric Acid (2.6-7.2) mg/dl Calcium (8.5-10.1) mg/dl Magnesium (Sulf Ther) (4.0-8.0) mg/dL Total Bilirubin (0.2-1.0) mg/dl Direct Bilirubin (0-0.2) mg/dl AST (13-39) U/L ALT (7-52) U/L Alkaline Phosphatase (34-104) U/L Lactate Dehydrogenase (86-244) U/L Total Protein (6.0-8.3) gm/dl Albumin (3.4-5.0) gm/dl Globulin (2.5-4.0) gm/dl Albumin/Globulin Ratio (0.9-2) Ur Random Creatinine mg/dl U Random Total Protein (0-11.9) mg/dl Protein/Creatinin Ratio (0-0.2) PE: General: Alert, orientedx3, NAD CVS: S1S2 RRR Lungs; CTAB Abd: soft, NT, ND, BS+, fundus firm, below Umbilicus Incision/ Dressing: Clean, dry, intact Perineum intact, Lochia rubra minimal Ext; NT, 2+/2+ edema, Homans sign neg/ neg AP: 30 yo s/p RC Section, pod# 1, on IV magnesium for seizure prophylaxis VSS Afebrile doing well Labs/ Mag level pending Continue tp monitor closely. Encourage ambulation, PO intake this afternoon D/C Mag after 24 hours All questions were answered Results & Data ([facility]) Vital Signs (Past 12 Hours) Vital Signs Temp Pulse Resp BP Pulse Ox 04/12/21 08:21 98 H 99 04/12/21 08:17 102 H 146/79 H 04/12/21 08:16 107 H 99 04/12/21 08:11 101 H 99 04/12/21 08:06 94 H 99 04/12/21 08:02 92 H 138/73 04/12/21 08:01 94 H 99 04/12/21 07:56 103 H 98 04/12/21 07:51 104 H 100 04/12/21 07:46 94 H 99 04/12/21 07:41 99 H 99 04/12/21 07:36 97 H 99 04/12/21 07:31 95 H 99 04/12/21 07:26 92 H 100 04/12/21 07:21 95 H 99 04/12/21 07:16 102 H 99 04/12/21 07:11 107 H 99 04/12/21 07:06 102 H 99 04/12/21 07:01 97 H 99 04/12/21 06:56 99 H 99 04/12/21 06:51 102 H 99 04/12/21 06:46 111 H 98 04/12/21 06:41 101 H 99 04/12/21 06:36 104 H 99 04/12/21 06:31 99 H 98 04/12/21 06:26 107 H 18 98 04/12/21 06:21 110 H 99 04/12/21 06:17 96 H 131/68 04/12/21 06:16 99 H 96 04/12/21 06:11 106 H 96 04/12/21 06:09 97 H 94 04/12/21 06:06 99 H 94 04/12/21 06:03 99 H 94 04/12/21 06:01 104 H 94 04/12/21 05:57 101 H 93 04/12/21 05:56 94 H 96 04/12/21 05:52 96 H 94 04/12/21 05:51 97 H 95 04/12/21 05:47 99 H 94 04/12/21 05:46 98 H 96 04/12/21 05:41 95 H 96 04/12/21 05:36 102 H 97 04/12/21 05:31 97 H 95 04/12/21 05:30 16 95 04/12/21 05:29 96 H 94 04/12/21 05:26 95 H 95 04/12/21 05:21 94 H 95 04/12/21 05:20 96 H 94 04/12/21 05:17 95 H 132/64 04/12/21 05:16 96 H 97 04/12/21 05:15 99 H 93 04/12/21 05:11 96 H 96 04/12/21 05:06 93 H 96 04/12/21 05:01 97 H 97 04/12/21 04:56 100 H 97 04/12/21 04:51 101 H 97 04/12/21 04:46 97 H 97 04/12/21 04:41 99 H 98 04/12/21 04:36 102 H 97 04/12/21 04:31 95 H 96 04/12/21 04:30 18 100 04/12/21 04:26 96 H 96 04/12/21 04:21 92 H 96 04/12/21 04:17 93 H 143/74 H 04/12/21 04:16 93 H 98 04/12/21 04:11 93 H 98 04/12/21 04:06 92 H 98 04/12/21 04:01 99 H 98 04/12/21 03:56 96 H 98 04/12/21 03:51 94 H 99 04/12/21 03:46 93 H 99 04/12/21 03:41 84 98 04/12/21 03:36 90 99 04/12/21 03:31 91 H 98 04/12/21 03:26 85 100 04/12/21 03:21 95 H 100 04/12/21 03:18 83 140/78 04/12/21 03:16 85 100 04/12/21 03:15 36.7 C 18 100 04/12/21 03:11 95 H 99 0225/22 03:06 83 96 04/12/21 03:01 84 97 04/12/21 02:56 86 98 04/12/21 02:51 85 99 04/12/21 02:46 87 99 04/12/21 02:41 79 99 04/12/21 02:36 82 99 04/12/21 02:31 84 99 04/12/21 02:26 101 H 100 04/12/21 02:21 82 98 04/12/21 02:17 82 136/73 04/12/21 02:16 83 99 04/12/21 02:13 20 100 04/12/21 02:11 90 100 04/12/21 02:06 88 99 04/12/21 02:01 84 100 04/12/21 01:56 90 100 04/12/21 01:51 93 H 100 04/12/21 01:46 101 H 100 04/12/21 01:41 107 H 100 04/12/21 01:36 88 100 04/12/21 01:31 97 H 100 04/12/21 01:26 90 100 04/12/21 01:21 88 18 100 04/12/21 01:17 101 H 134/76 04/12/21 01:16 109 H 100 04/12/21 01:11 98 H 100 04/12/21 01:06 79 98 04/12/21 01:01 82 98 04/12/21 00:56 76 100 04/12/21 00:51 82 99 04/12/21 00:46 85 100 04/12/21 00:42 82 144/75 H 04/12/21 00:41 86 100 04/12/21 00:36 86 99 04/12/21 00:31 84 99 04/12/21 00:26 83 100 04/12/21 00:21 81 100 04/12/21 00:16 83 100 04/12/21 00:11 83 18 100 04/12/21 00:06 88 100 04/12/21 00:01 87 100 04/11/21 23:56 88 100 04/11/21 23:51 101 H 100 04/11/21 23:46 78 100 02 23:41 81 100 04/11/21 23:36 95 H 99 04/11/21 23:31 86 100 04/11/21 23:26 75 99 04/11/21 23:21 100 H 98 04/11/21 23:17 79 142/77 H 04/11/21 23:16 84 99 04/11/21 23:15 36.8 C 16 100 04/11/21 23:11 79 100 04/11/21 23:06 73 99 04/11/21 23:01 73 100 04/11/21 22:56 88 99 04/11/21 22:51 93 H 99 04/11/21 22:48 86 133/76 04/11/21 22:46 85 97 04/11/21 22:41 74 99 04/11/21 22:36 80 98 04/11/21 22:31 80 99 04/11/21 22:26 83 99 04/11/21 22:21 89 99 04/11/21 22:16 86 99 04/11/21 22:15 16 99 04/11/21 22:11 80 99 04/11/21 22:06 86 100 04/11/21 22:01 36.8 C 88 18 99 04/11/21 21:56 78 100 04/11/21 21:51 76 100 04/11/21 21:46 89 99 04/11/21 21:41 80 99 04/11/21 21:36 77 99 04/11/21 21:31 75 99 04/11/21 21:26 78 99 04/11/21 21:21 78 100 04/11/21 21:16 85 100 04/11/21 21:15 18 99 04/11/21 21:14 78 143/79 H 04/11/21 21:12 20 02 21:11 75 100 04/11/21 21:06 83 99 04/11/21 21:01 69 99 04/11/21 20:59 65 137/78 04/11/21 20:56 72 99 04/11/21 20:51 72 100 04/11/21 20:46 77 99 22 20:42 18 04/11/21 20:41 78 99 04/11/21 20:36 72 99 04/11/21 20:31 77 99 04/11/21 20:26 75 99
[2021-04-12 08:58] LABS: Alanine Aminotransferase 9 U/L (7-52); Albumin Globulin Ratio 0.9 (0.9-2); Albumin Level 2.5 gm/dl (3.4-5.0); Alkaline Phosphatase 92 U/L (34-104); Anion Gap 7 (3-11); Aspartate Aminotransferase 16 U/L (13-39); BUN Creatinine Ratio 14.6 (10-20); Bilirubin,Total 0.3 mg/dl (0.2-1.0); Blood Urea Nitrogen 7 mg/dl (6-23); Calcium 7.1 mg/dl (8.5-10.1); Carbon Dioxide 19 mmol/L (21-32); Chloride 104 mmol/L (98-107); Creatinine Clr Calc Pharmacy 240.5 ml/min; Est GFR (African American) > 150.0 ml/min; Est GFR (Non-African American) 131.6 ml/min; Globulin 2.7 gm/dl (2.5-4.0); Glucose 80 mg/dl (70-99(Fasting)); Magnesium 3.9 mg/dl (1.7-2.4); Potassium 3.8 mmol/L (3.5-5.1); Sodium 130 mmol/L (136-145); Total Protein 5.2 gm/dl (6.0-8.3)
[2021-04-12] MEDS ORDERED: NON-FORMULARY MEDICATION (Pnv Cmb#95-Ferrous Fumarate-Fa [Prenatal] 28 mg iron- 800 mcg Ta PO SCH (09:00)
[2021-04-12] MEDS: SIMETHICONE 80 MG CHEW PO SCH ×4 (09:03→19:36)
[2021-04-12] MEDS: SERTRALINE HCL 50 MG TABLET PO SCH (09:04)
[2021-04-12] MEDS: ASCORBIC ACID 500 MG TAB PO SCH (09:07)
[2021-04-12] MEDS: CYANOCOBALAMIN (B-12) 500 MCG TABLET PO SCH (09:13)
[2021-04-12] MEDS: FERROUS SULFATE 325 MG TAB PO SCH (09:14)
[2021-04-12] MEDS: DOCUSATE SODIUM 100 MG CAP PO SCH ×2 (09:16→19:36)
[2021-04-12] MEDS ORDERED: MEPERIDINE HCL 50 MG/ML CARP IV PRN (11:41)
[2021-04-12] MEDS ORDERED: diphenhydrAMINE 50 MG/ML VIAL IV PRN (11:41)
[2021-04-12] MEDS ORDERED: diphenhydrAMINE Capsule 25 MG CAP PO PRN (11:41)
[2021-04-12] MEDS: IBUPROFEN 600 MG TAB PO PRN ×3 (13:05→22:08)
[2021-04-12] MEDS: oxyCODONE/ACETAMINOPHEN 5mg/325mg TAB PO PRN (13:05)
[2021-04-12] MEDS: PRENATAL VITAMIN 1 TAB PO SCH (16:50)
[2021-04-12] MEDS ORDERED: bisacodyL 10 MG SUPP PR PRN (17:05)
[2021-04-12] MEDS ORDERED: bisacodyL 10 MG SUPP PR ONE (17:21)
[2021-04-12] MEDS ORDERED: bisacodyL 5 MG TABEC PO SCH (20:00)
[2021-04-12] MEDS ORDERED: LABETALOL HCL 100 MG TAB PO ONE (23:52)
[2021-04-12] MEDS ORDERED: LABETALOL HCL 100 MG TAB ONE (23:59)
[2021-04-13] MEDS: IBUPROFEN 600 MG TAB PO PRN ×5 (03:20→22:24)
[2021-04-13 06:27] LABS: Hematocrit (blood only) 26.5 % (37-47); Hemoglobin 8.8 g/dL (12.0-16.0)
[2021-04-13] MEDS: FERROUS SULFATE 325 MG TAB PO SCH (08:04)
[2021-04-13] MEDS: DOCUSATE SODIUM 100 MG CAP PO SCH ×2 (08:04→19:48)
[2021-04-13] MEDS: SIMETHICONE 80 MG CHEW PO SCH ×4 (08:04→19:48)
[2021-04-13] MEDS: PRENATAL VITAMIN 1 TAB PO SCH (08:04)
[2021-04-13] MEDS: oxyCODONE/ACETAMINOPHEN 5mg/325mg TAB PO PRN ×4 (08:04→22:23)
--- NOTE | 2021-04-13 08:33 | Obstetrical Progress Note ---
Date of Service April 13, 2021 Assessment & Plan (1) Severe preeclampsia: s/p 24 hrs mag recover BP this am 125/77 Continue labetalol 100mg BID Plan to d/c home tomorrow if doing well Continue routine PP care, encouraged more ambulation Will add Lovenox as patient is high risk due to CD, preeclampsia, DM and morbid obesity to prevent DVT (2) Chronic hypertension affecting : (3) Diabetes in preg-unspec: Subjective Ambulation: ambulating normally Voiding: no voiding problems Passing Gas:: Yes Diet Tolerance:: regular diet Lochia:: Small Feeding Type:: bottle feeding Current Pain Level(1-10): 3 NO issues this am Review of Systems All systems reviewed & are unremarkable except as noted in HPI & below Physical Exam Constitutional WD/WN, vitals as above Respiratory normal respiratory effort, lungs clear to auscultation Cardiovascular RRR, no murmur, no edema Gastrointestinal (Abdomen) normal bowel sounds, soft, nontender, no hepatosplenomegaly Obese, incision covered, clean and dry Results & Data ([facility]) Vital Signs (Past 12 Hours) Vital Signs Temp Pulse Resp BP Pulse Ox 04/13/21 03:12 37 C 101 H 20 125/77 96 04/12/21 23:21 155/91 H 04/12/21 23:20 37.3 C 103 H 16 162/86 H 99
[2021-04-13] MEDS: CYANOCOBALAMIN (B-12) 500 MCG TABLET PO SCH (08:57)
[2021-04-13] MEDS: LABETALOL HCL 100 MG TAB PO SCH ×2 (08:57→20:00)
[2021-04-13] MEDS: ASCORBIC ACID 500 MG TAB PO SCH (08:57)
[2021-04-13] MEDS: SERTRALINE HCL 50 MG TABLET PO SCH (08:58)
[2021-04-13] MEDS: ENOXAPARIN INJ 40 MG/0.4 ML SYR SQ SCH (11:02)
[2021-04-13] MEDS ORDERED: bisacodyL 10 MG SUPP PR PRN (19:26)
[2021-04-14] MEDS: oxyCODONE/ACETAMINOPHEN 5mg/325mg TAB PO PRN ×2 (03:07→08:32)
[2021-04-14] MEDS: IBUPROFEN 600 MG TAB PO PRN ×2 (03:07→08:33)
--- NOTE | 2021-04-14 07:46 | Obstetrical Progress Note ---
Date of Service April 14, 2021 Assessment & Plan (1) Severe preeclampsia: BP this AM 126/79 Continue labetalol 100mg BID Consider changing to ACEi due to DM and renal protection at next appoitment (also because bottle feeding) Home today Wound check 1 week, PP 3 and 6 weeks (2) Chronic hypertension affecting : (3) Diabetes in preg-unspec: Subjective Ambulation: ambulating normally Voiding: no voiding problems Passing Gas:: Yes Diet Tolerance:: regular diet Lochia:: Small Feeding Type:: bottle feeding Doing well, wants to go home today Physical Exam Constitutional WD/WN, vitals as above Respiratory normal respiratory effort, lungs clear to auscultation Cardiovascular RRR, no murmur, no edema Gastrointestinal (Abdomen) normal bowel sounds, soft, nontender, no hepatosplenomegaly Results & Data ([facility]) Vital Signs (Past 12 Hours) Vital Signs Temp Pulse Resp BP Pulse Ox 04/14/21 03:05 37 C 91 H 16 126/79 99 04/13/21 22:20 37.0 C 97 H 16 147/87 H 97 04/13/21 19:46 137/86
[2021-04-14] MEDS: PRENATAL VITAMIN 1 TAB PO SCH (08:32)
[2021-04-14] MEDS: FERROUS SULFATE 325 MG TAB PO SCH (08:32)
[2021-04-14] MEDS: SIMETHICONE 80 MG CHEW PO SCH (08:32)
[2021-04-14] MEDS: LABETALOL HCL 100 MG TAB PO SCH (08:32)
[2021-04-14] MEDS: DOCUSATE SODIUM 100 MG CAP PO SCH (08:32)
[2021-04-14] MEDS: SERTRALINE HCL 50 MG TABLET PO SCH (08:33)
[2021-04-14] MEDS: ASCORBIC ACID 500 MG TAB PO SCH (08:33)
[2021-04-14] MEDS: ENOXAPARIN INJ 40 MG/0.4 ML SYR SQ SCH (08:34)
[2021-04-14] MEDS: CYANOCOBALAMIN (B-12) 500 MCG TABLET PO SCH (08:34)
== END 2021-04-14 11:10 | disposition home or self-care (01) | DRG 788 ==
LOC: 4S1 08:06 → 4S2 04-12 19:12

== ENCOUNTER 2021-04-22 15:24 | Inpatient (IN) ==
--- NOTE | 2021-04-22 16:34 | Emergency Department Note ---
Impression & Plan Dehiscence of section wound, , Wound infection following section, ED Provider Note Name: GILBERT GAN Age: 30 Sex: F Arrives Via: Walk-In Informant: Patient ED Provider: Rolando Brownlee MD Chief Complaint: Wound complications Impression: As Per Impressions Above Medical Decision Makin-year-old female arrives for evaluation of issue post . Patient has a dehiscence of her wound with some developing infection including exudate within the wound cavity and some cellulitis extending up over the abdominal wall. She is not septic and her labs look good. Discussed with on- call OB and they evaluated the patient and feel hospitalization is indicated for further wound management. Patient is comfortable with this plan and she is stable throughout. Prior Medical Record and Triage/Nursing Notes reviewed by Me Additional history obtained from chart Differentials: Abscess, cellulitis, wound infection, sepsis, bacteremia, as well as other pathologies. Vital Signs: reviewed and remarkable for no significant abnormalities Interventions: Ancef 2 g IV Labs:Reviewed and remarkable for no significant abnormalities Imaging:None Consults:Dr Yvonne Shah OB Plan: Disposition:Hospitalization. Condition: Good History of Present Illness:30-year-old female arrives for evaluation of wound dehiscence. Patient had a 2 weeks ago which she noted got infected. She was seen on Thursday 4 days ago started on antibiotics. She was reevaluated today at the OB clinic and the OB team told her that she needed to go to the ER to get the wound packed. Patient notes that she has been dealing with on and off fevers though none in the last 2 days as well as just not feeling well. The wound has been draining a fair amount and her significant other has been placing wound dressings over it. Patient denies significant pain, syncope, shortness of breath, nausea, vomiting, other symptoms. He said no previous wound issues. Patient is without any history of MRSA that she is aware of. ROS: See above HPI for pertinent positives & negatives. A total of 10 systems reviewed and were otherwise negative. Past Medical History:HTN Past Surgical History:, cholecystectomy Family History:See Below Social History:See Below Home Medications:See Below Allergies:nkda Vitals:Blood Pressure: 119/58, Pulse 77, RR 20, T 36.8C, O2 98% on RA Physical Exam: GENERAL: Patient is well appearing and in no acute distress. EYES: No scleral icterus, unremarkable pupils. ENT: Mucous membranes moist, no nasal congestion. NECK: No masses appreciated, nomeningismus, trachea is midline. RESPIRATORY: No dyspnea. Clear to auscultation and equal bilaterally. No wheeze, no rhonchi. CARDIOVASCULAR: Regular rate and rhythm.No murmurs, rubs, gallops appreciated. GASTROINTESTINAL: 5 cm wound dehiscence incision from midline to left. exudative tissue noted throughout wound cavity with some drainage. Erythema noted to be lightly raising upwards and to right of abdomen. Otherwise abdomen soft, non-tender, no peritonitis.Bowel sounds positive.No masses appreciated. BACK: No midline tenderness, no CVA tenderness EXTREMITIES: Normal motion all extremities, no cyanosis, no edema. NEUROLOGIC: Alert and oriented, no acute motor or sensory deficits, no focal weakness, cranial nerves grossly intact. SKIN: Cellulitis extending from wound to right lateral abdomen. No rash, no jaundice, no diaphoresis. PSYCH: Appropriate GCS: 15 ED Course: Times/Reassessments: stable, comfortable awaiting OB eval. Plan admit given degree dehiscence Rolando Brownlee MD Past Med/Surg History Medical History Anxiety Asthma Cholecystitis, acute with cholelithiasis Former cigarette smoker Gestational diabetes Gestational hypertension Morbid obesity Surgical History History of laparoscopic cholecystectomy Previous section Family History Brother Pulmonary embolism Mother Hypertension Father FH: kidney cancer Social History Smoking Status: Never smoker Tobacco Type: Cigarettes Cigarettes Per Day: Quit in June 2020; Second Hand Exposure: No; Hx Alcohol Use: No Hx Substance Use: No Preferred Language: Citizen [place] Communication Ability: Effective Shoe Sprayer Required: No Beliefs That Will Affect Care: None marital status: Single Current Living Situation: Significant Other Current Living Situation Comment: Lives with S.O. 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 [employer] Feels Safe at Home: Yes Gender Identity: Female Assistive Devices: None Allergies Allergies Allergy/AdvReac Type Severity Reaction Status Date / Time No Known Allergies Allergy Unverified 04/22/21 15:45 Home Meds Home Medications Medication Instructions Recorded Confirmed vit no.95-ferrous 1 tab PO DAILY 09/13/20 04/22/21 fumarate 28 mg-folic acid 800 mcg tablet () cyanocobalamin (vitamin B-12) 1,000 mcg PO DAILY 04/11/21 04/22/21 1,000 mcg tablet (Vitamin B-12) iron,carbonyl 65 mg-vitamin C 125 1 tab PO DAILY 04/11/21 04/22/21 mg tablet,delayed release (Vitron-C) sertraline 50 mg tablet (Zoloft) 75 mg PO DAILY 04/11/21 04/22/21 amoxicillin 875 mg tablet 875 mg PO AMHS 04/22/21 04/22/21 Previous Rx's Medication Instructions Recorded docusate sodium 100 mg capsule 100 mg PO DAILY 30 Days #30 cap 04/14/21 labetalol 100 mg tablet 100 mg PO BID 30 Days #60 tab 04/14/21 vits no.124-ferrous fum 1 tab PO DAILY@08 30 Days #30 tab 04/14/21 27 mg iron-folic acid 800 mcg tablet ( Vitamin) Results & Data (ED) Vital Signs Vital Signs - 24 hr 04/22/21 15:27 04/22/21 17:25 Temperature 36.9 C Temperature Source Temporal Artery Scan Pulse Rate 77 Respiratory Rate 20 18 Respiratory Effort / Characteristics Non-Labored Spontaneous Non-Labored Respiratory Depth Normal Normal Respiratory Pattern Regular Regular Blood Pressure 135/80 Blood Pressure [Left Arm] 133/71 Blood Pressure Mean 98 Blood Pressure Mean [Left Arm] 91 Blood Pressure Position [Left Arm] Lying Pulse Oximetry 96 98 Oxygen Delivery Method Room Air Room Air Sepsis Recent Fever Within 48 Hours No Sepsis New/Unexplained Change in Mental Status No Sepsis Action Taken by Nursing No Action Required Laboratory Data Result diagrams: 04/22/21 17:09 04/22/21 17:09 Lab Results 04/22/21 04/22/21 04/22/21 Range/Units 17:09 17:09 17:09 WBC 10.32 (4.8-10.8) K/uL RBC 3.43 L (4.2-5.4) M/uL Hgb 9.8 L (12.0-16.0) g/dL Hct 30.7 L (37-47) % MCV 89.5 (80-100) fL MCH 28.6 (25-34) pg MCHC 31.9 L (32-36) g/dL RDW Std Deviation 48.6 H (36.4-46.3) fL RDW Coeff of Misty 14.9 H (11.5-14.5) % Plt Count 420 H (130-400) K/uL MPV 8.7 (7.4-10.4) fL Immature Gran % (Auto) 0.4 % Neut % (Auto) 67.3 % Lymph % (Auto) 22.3 % [place] % (Auto) 6.3 % Eos % (Auto) 3.5 % Baso % (Auto) 0.2 % Neut # (Auto) 6.95 H (1.4-6.5) K/uL Lymph # (Auto) 2.30 (1.2-3.4) K/uL [place] # (Auto) 0.65 H (0.11-0.59) K/uL Eos # (Auto) 0.36 (0-0.5) K/uL Baso # (Auto) 0.02 (0-0.2) K/uL Immature Gran # (Auto) 0.04 H (0.00-0.02) K/uL Sodium 138 (136-145) mmol/L Potassium 4.2 (3.5-5.1) mmol/L Chloride 106 (98-107) mmol/L Carbon Dioxide 23 (21-32) mmol/L Anion Gap 9 (3-11) BUN 16 (6-23) mg/dl Creatinine 0.86 (0.6-1.2) mg/dl Est Cr Clr Drug Dosing 126.3 ml/min Est GFR ( Amer) 105.1 ml/min Est GFR (Non-Af Amer) 90.7 ml/min BUN/Creatinine Ratio 18.6 (10-20) Glucose 79 (70-99(Fasting)) mg/dl Calcium 9.0 (8.5-10.1) mg/dl Procalcitonin Cancelled 04/22/21 Range/Units 18:05 WBC (4.8-10.8) K/uL RBC (4.2-5.4) M/uL Hgb (12.0-16.0) g/dL Hct (37-47) % MCV (80-100) fL MCH (25-34) pg MCHC (32-36) g/dL RDW Std Deviation (36.4-46.3) fL RDW Coeff of Misty (11.5-14.5) % Plt Count (130-400) K/uL MPV (7.4-10.4) fL Immature Gran % (Auto) % Neut % (Auto) % Lymph % (Auto) % [place] % (Auto) % Eos % (Auto) % Baso % (Auto) % Neut # (Auto) (1.4-6.5) K/uL Lymph # (Auto) (1.2-3.4) K/uL [place] # (Auto) (0.11-0.59) K/uL Eos # (Auto) (0-0.5) K/uL Baso # (Auto) (0-0.2) K/uL Immature Gran # (Auto) (0.00-0.02) K/uL Sodium (136-145) mmol/L Potassium (3.5-5.1) mmol/L Chloride (98-107) mmol/L Carbon Dioxide (21-32) mmol/L Anion Gap (3-11) BUN (6-23) mg/dl Creatinine (0.6-1.2) mg/dl Est Cr Clr Drug Dosing ml/min Est GFR ( Amer) ml/min Est GFR (Non-Af Amer) ml/min BUN/Creatinine Ratio (10-20) Glucose (70-99(Fasting)) mg/dl Calcium (8.5-10.1) mg/dl Procalcitonin < 0.05 Administered Medications Lactated Ringer's (Lr) 1,000 mls @ 125 mls/hr IV .Q8H [facility] Stop: 05/22/21 19:14 Last Admin: 04/22/21 23:20 Dose: 125 mls/hr Documented by: [id number] Daptomycin 350 mg/ Syringe 7 mls @ 3.5 mls/min IV Q24H [facility]; Protocol Stop: 04/29/21 21:59 Last Admin: 04/22/21 23:20 Dose: 3.5 mls/min Documented by: [id number] Labetalol HCl (Labetalol Hcl 100 Mg Tab) 100 mg PO BID [facility] Stop: 05/22/21 22:58 Last Admin: 04/22/21 23:20 Dose: 100 mg Documented by: [id number] Discontinued Medications Cefazolin Sodium (Ancef 2000mg) 2,000 mg in 15 mls @ 3.75 mls/min IV NOW STA Stop: 04/22/21 17:33 Last Admin: 04/22/21 17:57 Dose: 3.75 mls/min Documented by: [id number] Discharge Plan Visit Data Chief Complaint: Infection Stated Complaint: NEEDS C SECTION INCISION PACKED, INFECTION ED Provider: Rolando Brownlee Discharge Problem: Dehiscence of section wound, , Wound infection following section, Patient Disposition: Admitted As Inpatient Discharge Instructions Interventions: ED Discharge Assessment Last Done: 04/22/21 21:28
[2021-04-22 17:22] LABS: Basophils # (auto) 0.02 K/uL (0-0.2); Basophils % (auto) 0.2 %; Eosinophils # (auto) 0.36 K/uL (0-0.5); Eosinophils % (auto) 3.5 %; Hematocrit (blood only) 30.7 % (37-47); Hemoglobin 9.8 g/dL (12.0-16.0); Immature Granulocytes # (auto) 0.04 K/uL (0.00-0.02); Immature Granulocytes % (auto) 0.4 %; Lymphocytes % (auto) 22.3 %; Mean Corpuscular Hemoglobin 28.6 pg (25-34); Mean Corpuscular Hgb Conc 31.9 g/dL (32-36); Mean Corpuscular Volume 89.5 fL (80-100); Mean Platelet Volume 8.7 fL (7.4-10.4); Monocytes # (auto) 0.65 K/uL (0.11-0.59); Monocytes % (auto) 6.3 %; Neutrophils # (auto) 6.95 K/uL (1.4-6.5); Neutrophils % (auto) 67.3 %; Platelet Count 420 K/uL (130-400); RDW Coefficient of Variation 14.9 % (11.5-14.5); RDW Standard Deviation 48.6 fL (36.4-46.3); Red Blood Count 3.43 M/uL (4.2-5.4); White Blood Count 10.32 K/uL (4.8-10.8)
[2021-04-22] MEDS ORDERED: ceFAZolin 2000MG 2,000 MG/15 ML SYR IV STA (17:30)
[2021-04-22 17:39] LABS: BUN Creatinine Ratio 18.6 (10-20); Creatinine Clr Calc Pharmacy 126.3 ml/min; Est GFR (African American) 105.1 ml/min; Est GFR (Non-African American) 90.7 ml/min; Potassium 4.2 mmol/L (3.5-5.1)
--- NOTE | 2021-04-22 18:25 | OB/GYN Consultation ---
Date of Consultation April 22, 2021 Assessment & Plan (1) Wound infection following section, : 30-year-old -0-0-2 female status post repeat on April 14, presenting with wound infection and opening on the skin since April 19 with no response to amoxicillin p.o. Vital signs stable afebrile, Normal white count, Incision appears to have 3 to 4 cm opening with induration, purulent discharge and purple/necrotic changes on the skin edges. I extensively irrigated with sterile normal saline and cleaned the pulse and the tissue from incision site. Fascia appears to be intact. I packed with sterile iodoform gauze and covered with sterile dressings. Recommended her to stay in the hospital for IV antibiotics and wound care evaluation tomorrow in the hospital. Patient agreed with plan. We will admit her overnight for above care and await for wound care consultation tomorrow and plan for discharge. All questions were answered. History of Present Illness Reason for Consultation: wound infection History of Present Illness Patient is a 30 yo female who is s/p repeat Csection on 04/14, placed Corona dressing which was removed after 7 days She had fever chills on 04/18 night and went to office on 04/19 Her incision had 3 cm opening then and was Prescribed Amoxicillin PO with f/u today Per her PA in office, wound got worse, more opening and drainage Patient noted drainage since 04/18, she has been changing pads 2 times a day No more fever/ chills since she started AB Denies pain, fever chills, nausea vomiting, vaginal bleeding. Her baby has been doing well she has been bottlefeeding and trying to pump breastmilk. She denies allergies to medications. Allergies Allergy/AdvReac Type Severity Reaction Status Date / Time No Known Allergies Allergy Unverified 04/22/21 15:45 Home Medications Medication Instructions Recorded Confirmed Type vit no.95-ferrous 1 tab PO DAILY 09/13/20 04/22/21 History fumarate 28 mg-folic acid 800 mcg tablet () cyanocobalamin (vitamin B-12) 1,000 mcg PO DAILY 04/11/21 04/22/21 History 1,000 mcg tablet (Vitamin B-12) iron,carbonyl 65 mg-vitamin C 125 1 tab PO DAILY 04/11/21 04/22/21 History mg tablet,delayed release (Vitron-C) sertraline 50 mg tablet (Zoloft) 75 mg PO DAILY 04/11/21 04/22/21 History docusate sodium 100 mg capsule 100 mg PO DAILY 30 Days #30 cap 04/14/21 04/22/21 Rx labetalol 100 mg tablet 100 mg PO BID 30 Days #60 tab 04/14/21 04/22/21 Rx vits no.124-ferrous fum 1 tab PO DAILY@08 30 Days #30 tab 04/14/21 04/22/21 Rx 27 mg iron-folic acid 800 mcg tablet ( Vitamin) amoxicillin 875 mg tablet 875 mg PO AMHS 04/22/21 04/22/21 History Patient History Medical History Anxiety Asthma Cholecystitis, acute with cholelithiasis Former cigarette smoker Gestational diabetes Gestational hypertension Morbid obesity Surgical History History of laparoscopic cholecystectomy Previous section Family History Brother Pulmonary embolism Mother Hypertension Father FH: kidney cancer Social History Smoking Status: Never smoker Tobacco Type: Cigarettes Cigarettes Per Day: Quit in June 2020; Second Hand Exposure: No; Hx Alcohol Use: No Hx Substance Use: No Preferred Language: [place] Fine Patcher Required: No Beliefs That Will Affect Care: None marital status: Single Current Living Situation: Significant Other Current Living Situation Comment: Lives with S.O. 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 tissue on superior edge, yellow to green pus in the middle Results & Data ([facility]) Vital Signs (Past 12 Hours) Vital Signs Temp Pulse Resp BP BP Pulse Ox 04/22/21 17:25 18 133/71 98 04/22/21 15:27 36.9 C 77 20 135/80 96 Laboratory Results Lab Results 04/22/21 04/22/21 04/22/21 Range/Units 17:09 17:09 17:09 WBC 10.32 (4.8-10.8) K/uL RBC 3.43 L (4.2-5.4) M/uL Hgb 9.8 L (12.0-16.0) g/dL Hct 30.7 L (37-47) % MCV 89.5 (80-100) fL MCH 28.6 (25-34) pg MCHC 31.9 L (32-36) g/dL RDW Std Deviation 48.6 H (36.4-46.3) fL RDW Coeff of Misty 14.9 H (11.5-14.5) % Plt Count 420 H (130-400) K/uL MPV 8.7 (7.4-10.4) fL Immature Gran % (Auto) 0.4 % Neut % (Auto) 67.3 % Lymph % (Auto) 22.3 % [place] % (Auto) 6.3 % Eos % (Auto) 3.5 % Baso % (Auto) 0.2 % Neut # (Auto) 6.95 H (1.4-6.5) K/uL Lymph # (Auto) 2.30 (1.2-3.4) K/uL [place] # (Auto) 0.65 H (0.11-0.59) K/uL Eos # (Auto) 0.36 (0-0.5) K/uL Baso # (Auto) 0.02 (0-0.2) K/uL Immature Gran # (Auto) 0.04 H (0.00-0.02) K/uL Sodium 138 (136-145) mmol/L Potassium 4.2 (3.5-5.1) mmol/L Chloride 106 (98-107) mmol/L Carbon Dioxide 23 (21-32) mmol/L Anion Gap 9 (3-11) BUN 16 (6-23) mg/dl Creatinine 0.86 (0.6-1.2) mg/dl Est Cr Clr Drug Dosing 126.3 ml/min Est GFR ( Amer) 105.1 ml/min Est GFR (Non-Af Amer) 90.7 ml/min BUN/Creatinine Ratio 18.6 (10-20) Glucose 79 (70-99(Fasting)) mg/dl Calcium 9.0 (8.5-10.1) mg/dl Procalcitonin Cancelled
[2021-04-22] MEDS ORDERED: POLYETHYLENE (MIRALAX) 17 GM PACK PO PRN (18:57)
[2021-04-22] MEDS ORDERED: ACETAMINOPHEN 325 MG TAB PO PRN (18:57)
[2021-04-22] MEDS ORDERED: ALUMINUM/MAGNESIUM/SIMETH (MAALOX MAX) 30 ML UDC PO PRN (18:57)
[2021-04-22] MEDS ORDERED: MAGNESIUM HYDROXIDE SUSP 30 ML UDC PO PRN (18:57)
[2021-04-22] MEDS ORDERED: LORazepam 0.5 MG TAB PO PRN (18:57)
[2021-04-22] MEDS ORDERED: VANCOMYCIN CONSULT ACTIVE PRN (19:11)
[2021-04-22] MEDS ORDERED: VANCOMYCIN HCL 2,000 MG in SODIUM CHLORIDE 0.9% 500 ML IV SCH (21:00)
[2021-04-22] MEDS: LACTATED RINGER'S 1,000 ML IV SCH (23:20)
[2021-04-22] MEDS: DAPTOmycin 350 MG in SYRINGE 0 ML IV SCH (23:20)
[2021-04-22] MEDS: LABETALOL HCL 100 MG TAB PO SCH (23:20)
[2021-04-23] MEDS: LACTATED RINGER'S 1,000 ML IV SCH ×3 (04:58→20:56)
[2021-04-23 06:58] LABS: Basophils # (auto) 0.05 K/uL (0-0.2); Basophils % (auto) 0.5 %; Eosinophils # (auto) 0.22 K/uL (0-0.5); Eosinophils % (auto) 2.3 %; Hematocrit (blood only) 30.4 % (37-47); Immature Granulocytes # (auto) 0.02 K/uL (0.00-0.02); Immature Granulocytes % (auto) 0.2 %; Lymphocytes # (auto) 1.58 K/uL (1.2-3.4); Lymphocytes % (auto) 16.8 %; Mean Corpuscular Hemoglobin 29.1 pg (25-34); Mean Corpuscular Hgb Conc 32.9 g/dL (32-36); Mean Corpuscular Volume 88.4 fL (80-100); Mean Platelet Volume 8.5 fL (7.4-10.4); Monocytes # (auto) 0.48 K/uL (0.11-0.59); Monocytes % (auto) 5.1 %; Neutrophils # (auto) 7.04 K/uL (1.4-6.5); Neutrophils % (auto) 75.1 %; Platelet Count 449 K/uL (130-400); RDW Coefficient of Variation 14.9 % (11.5-14.5); RDW Standard Deviation 48.6 fL (36.4-46.3); Red Blood Count 3.44 M/uL (4.2-5.4); White Blood Count 9.39 K/uL (4.8-10.8)
[2021-04-23 07:17] LABS: Albumin Globulin Ratio 0.8 (0.9-2); Albumin Level 3.1 gm/dl (3.4-5.0); BUN Creatinine Ratio 17.4 (10-20); Bilirubin,Total 0.3 mg/dl (0.2-1.0); Calcium 8.2 mg/dl (8.5-10.1); Creatinine Clr Calc Pharmacy 157.4 ml/min; Est GFR (African American) 135.4 ml/min; Est GFR (Non-African American) 116.8 ml/min; Potassium 4.2 mmol/L (3.5-5.1); Total Protein 7.1 gm/dl (6.0-8.3)
[2021-04-23] MEDS ORDERED: NON-FORMULARY MEDICATION (Iron,Carbonyl-Vitamin C [Vitron-C] 65 mg iron- 125 mg Tablet,Del PO SCH (09:00)
[2021-04-23] MEDS: PRENATAL VITAMIN 1 TAB PO SCH (09:22)
[2021-04-23] MEDS: SERTRALINE HCL 50 MG TABLET PO SCH (09:23)
[2021-04-23] MEDS: LABETALOL HCL 100 MG TAB PO SCH ×2 (09:23→20:56)
--- NOTE | 2021-04-23 12:25 | Progress Note ---
Date of Service April 23, 2021 Assessment & Plan (1) Wound infection following section, : Plan: Post op c/sec wound infection Pt seen and examined with wound clinic nurse wound debrided at bedside wound vac. installed by nurse home health consult placed continue on Antibx plan d/c home with wound vac after insurance clearance Admission and Anticipated Discharge Date Admission Date: April 22, 2021 Results & Data ([facility]) Vital Signs (Past 12 Hours) Vital Signs Temp Pulse Resp BP Pulse Ox 04/23/21 07:15 37.5 C 88 16 112/74 97
[2021-04-23] MEDS: DAPTOmycin 350 MG in SYRINGE 0 ML IV SCH (22:35)
[2021-04-24] MEDS: LACTATED RINGER'S 1,000 ML IV SCH (05:35)
[2021-04-24] MEDS: SERTRALINE HCL 50 MG TABLET PO SCH (08:31)
[2021-04-24] MEDS: LABETALOL HCL 100 MG TAB PO SCH (08:31)
[2021-04-24] MEDS: PRENATAL VITAMIN 1 TAB PO SCH (08:33)
--- NOTE | 2021-04-24 10:52 | Progress Note ---
Date of Service April 24, 2021 Assessment & Plan (1) Wound infection following section, : Plan: discharged home on PO antibiotics continue wound vac at home follow up with wound care clinic Admission and Anticipated Discharge Date Admission Date: April 22, 2021 Subjective doing well plans for d/c Review of Systems Review of Systems: All systems reviewed & are unremarkable except as noted in HPI & below Physical Exam Constitutional: WD/WN, vitals as above comfortable Skin: no rashes, warm and dry Neurologic: patellar DTR's 2+ bilat, sensation intact Genitourinary: incision without any significant drainage. skin edges non- tender. will continue wound vac at home Results & Data ([facility]) Vital Signs (Past 12 Hours) Vital Signs Temp Pulse Pulse Resp BP BP Pulse Ox 04/24/21 07:44 37.5 C 85 18 127/78 96 04/24/21 04:05 37.1 C 88 17 120/77 97 04/23/21 23:00 37.2 C 84 17 112/68 98 Laboratory Results 04/22/21 04/22/21 04/22/21 17:09 17:09 17:09 WBC 10.32 RBC 3.43 L Hgb 9.8 L Hct 30.7 L MCV 89.5 MCH 28.6 MCHC 31.9 L RDW Std Deviation 48.6 H RDW Coeff of Misty 14.9 H Plt Count 420 H MPV 8.7 Immature Gran % (Auto) 0.4 Neut % (Auto) 67.3 Lymph % (Auto) 22.3 [place] % (Auto) 6.3 Eos % (Auto) 3.5 Baso % (Auto) 0.2 Neut # (Auto) 6.95 H Lymph # (Auto) 2.30 [place] # (Auto) 0.65 H Eos # (Auto) 0.36 Baso # (Auto) 0.02 Immature Gran # (Auto) 0.04 H Sodium 138 Potassium 4.2 Chloride 106 Carbon Dioxide 23 Anion Gap 9 BUN 16 Creatinine 0.86 Est Cr Clr Drug Dosing 126.3 Est GFR ( Amer) 105.1 Est GFR (Non-Af Amer) 90.7 BUN/Creatinine Ratio 18.6 Glucose 79 Calcium 9.0 Total Bilirubin AST ALT Alkaline Phosphatase Total Protein Albumin Globulin Albumin/Globulin Ratio Procalcitonin Cancelled SARS-CoV-2, RNA, NAAT 04/22/21 04/22/21 04/23/21 18:05 19:54 06:10 WBC RBC Hgb Hct MCV MCH MCHC RDW Std Deviation RDW Coeff of Misty Plt Count MPV Immature Gran % (Auto) Neut % (Auto) Lymph % (Auto) [place] % (Auto) Eos % (Auto) Baso % (Auto) Neut # (Auto) Lymph # (Auto) [place] # (Auto) Eos # (Auto) Baso # (Auto) Immature Gran # (Auto) Sodium 137 Potassium 4.2 Chloride 107 Carbon Dioxide 21 Anion Gap 9 BUN 12 Creatinine 0.69 Est Cr Clr Drug Dosing 157.4 Est GFR ( Amer) 135.4 Est GFR (Non-Af Amer) 116.8 BUN/Creatinine Ratio 17.4 Glucose 81 Calcium 8.2 L Total Bilirubin 0.3 AST 16 ALT 19 Alkaline Phosphatase 86 Total Protein 7.1 Albumin 3.1 L Globulin 4.0 Albumin/Globulin Ratio 0.8 L Procalcitonin < 0.05 SARS-CoV-2, RNA, NAAT NEGATIVE 04/23/21 06:10 WBC 9.39 RBC 3.44 L Hgb 10.0 L Hct 30.4 L MCV 88.4 MCH 29.1 MCHC 32.9 RDW Std Deviation 48.6 H RDW Coeff of Misty 14.9 H Plt Count 449 H MPV 8.5 Immature Gran % (Auto) 0.2 Neut % (Auto) 75.1 Lymph % (Auto) 16.8 [place] % (Auto) 5.1 Eos % (Auto) 2.3 Baso % (Auto) 0.5 Neut # (Auto) 7.04 H Lymph # (Auto) 1.58 [place] # (Auto) 0.48 Eos # (Auto) 0.22 Baso # (Auto) 0.05 Immature Gran # (Auto) 0.02 Sodium Potassium Chloride Carbon Dioxide Anion Gap BUN Creatinine Est Cr Clr Drug Dosing Est GFR ( Amer) Est GFR (Non-Af Amer) BUN/Creatinine Ratio Glucose Calcium Total Bilirubin AST ALT Alkaline Phosphatase Total Protein Albumin Globulin Albumin/Globulin Ratio Procalcitonin SARS-CoV-2, RNA, NAAT
--- NOTE | 2021-04-26 16:12 | Discharge Summary (DS) ---
DATE OF ADMISSION: 04/22/2021 DATE OF DISCHARGE: 04/24/2021 HOSPITAL COURSE AND REASON FOR ADMISSION: The patient is a 30-year-old female, para 2-0-0-2, status post section on 04/11/2021 as a repeat with a history of morbid obesity, gestational hyperte nsion, on insulin, chronic hypertension. The patient presents to the ER, found to have a portion of the wound open with a wound infection. She was admitted. She was started on IV antibiotics and woun d VAC. She subsequently did well. The wound was looking like it was healing. She was afebrile and then she was discharged home on 04/24/2021 in stable condition with home going instructions and wound VAC and home care and antibiotics with the patient to follow up at the wound care clinic and in the office for an incision check. Regular diet on discharge. Medications include the p.o. antibiotics t hat she was discharged with and to follow up as needed. Job ID: [id number]
== END 2021-04-24 12:45 | disposition home or self-care (01) | DRG 776 ==
LOC: ED 15:24 → 4S2 18:57

== ENCOUNTER 2021-04-26 10:32 | Inpatient (IN) ==
[2021-04-26] MEDS ORDERED: ACETAMINOPHEN 325 MG TAB PO PRN (11:11)
--- NOTE | 2021-04-26 13:22 | History & Physical Report ---
Date of Service April 26, 2021 Assessment & Plan (1) Wound infection following section, : (2) Dehiscence of section wound, : Plan: Discussed case with outpatient wound care provider who referred patient for direct admission for additional treatment, having failed outpatient management. - Admit to med/surg - Broad-spectrum IV antibiotics - Wound culture and blood cultures - Consult infectious disease for antibiotic recommendations - Consult GANG MINER for potential debridement - Consult wound care nurse for management of wound VAC and additional recommendations - Check labs on admission Pt seen and reviewed with collaborating physician, Dr. Bills. Plan of care discussed and as outlined above. DVT Prophylaxis: SCDs Code Status: Full code Albin Gaines PA-C Admission and Anticipated Discharge Date Admission Date: April 26, 2021 History of Present Illness Chief Complaint: Wound infection Primary Care Provider: STEVEN PCP This is a 30 y/o female with a PMH of morbid obesity, gestational diabetes, mild asthma, and migraines who presents for direct admission due to wound infection and dehiscence of the incision from 04/11/21. This was her second . Of note, pt had insulin-requiring gestational DM with poorly controlled blood sugars during most recent . She also had severe pre-eclampsia resulting in the need for the repeat . She presented to outpatient [facility] for her one week incision check on 04/19/21 and had started with fever/chills the day prior. Exam same day showed 4 cm dehiscence with associated erythema and yellow drainage. She was started on Amoxicillin. She was seen in f/u on 04/22/21 and referred to the ED for evaluation, where she was referred for admission for wound care and IV antibiotics. She was admitted 04/22-04/24 and given IV daptomycin. She was seen by the wound care nurse and wound VAC was applied. She was discharged on oral cephalexin and metronidazole. Wound culture grew out Prevotella BVI. Pt presented today to wound clinic for a follow-up. Evaluation in wound clinic revealed a malodorous wound with significant amount of necrotic fat so pt was referred for direct admission for broad-spectrum IV antibiotics and potential OR washout and debridement vs. application of an irrigating wound VAC. She denies fevers or chills at present. No significant pain at the present. She has been eating, drinking, urinating without difficulty. No constipation or diarrhea. She is not . Allergies Allergy/AdvReac Type Severity Reaction Status Date / Time No Known Allergies Allergy Verified 04/26/21 09:06 Home Medications Medication Instructions Recorded Confirmed Type vit no.95-ferrous 1 tab PO DAILY 09/13/20 04/26/21 History fumarate 28 mg-folic acid 800 mcg tablet () cyanocobalamin (vitamin B-12) 1,000 mcg PO DAILY 04/11/21 04/26/21 History 1,000 mcg tablet (Vitamin B-12) iron,carbonyl 65 mg-vitamin C 125 1 tab PO DAILY 04/11/21 04/26/21 History mg tablet,delayed release (Vitron-C) sertraline 50 mg tablet (Zoloft) 75 mg PO DAILY 04/11/21 04/26/21 History docusate sodium 100 mg capsule 100 mg PO DAILY 30 Days #30 cap 04/14/21 04/26/21 Rx labetalol 100 mg tablet 100 mg PO BID 30 Days #60 tab 04/14/21 04/26/21 Rx vits no.124-ferrous fum 1 tab PO DAILY@08 30 Days #30 tab 04/14/21 04/26/21 Rx 27 mg iron-folic acid 800 mcg tablet ( Vitamin) cephalexin 500 mg capsule 500 mg PO Q8H 10 Days #30 cap 04/24/21 04/26/21 Rx metronidazole 500 mg tablet 500 mg PO Q8H 14 Days #42 tab 04/24/21 04/26/21 Rx Past Med/Surg History Medical History Anxiety Asthma Cholecystitis, acute with cholelithiasis Former cigarette smoker Gestational diabetes Gestational hypertension Migraine Morbid obesity Surgical History History of laparoscopic cholecystectomy Previous section Family History Brother Pulmonary embolism Mother Hypertension Father FH: kidney cancer Social History Smoking Status: Former smoker Tobacco Type: Cigarettes Cigarettes Per Day: Quit in June 2020; Second Hand Exposure: No; Hx Alcohol Use: Yes Alcohol type: beer, wine and hard liquor Hx Substance Use: No Preferred Language: Ugandan Communication Ability: Effective Home Appliances Mechanic Required: No Beliefs That Will Affect Care: None marital status: Single Current Living Situation: Family Current Living Situation Comment: Lives with S.O. 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 Feels Safe at Home: Yes Gender Identity: Female Assistive Devices: None Review of Systems Review of Systems: All systems reviewed & are unremarkable except as noted in HPI & below Constitutional: no fever, no chills and no anorexia Eyes: no diplopia Ear, Nose, Mouth, Throat: no nasal congestion, no nasal discharge and no sore throat Respiratory: no cough, no dyspnea and no wheezing Cardiovascular: no chest pain, no palpitations, no syncope and no edema Gastrointestinal: no nausea, no vomiting and no diarrhea/loose stools Genitourinary: no dysuria and no hematuria Musculoskeletal: no back pain and no neck pain Integumentary: as per Subjective / HPI Neurologic: no generalized weakness, no dizziness and no headache(s) Physical Exam Constitutional: well developed and well nourished; no acute distress Eyes: + anicteric sclerae Neck: trachea midline Respiratory: no respiratory distress and no labored breathing Auscultation: lungs clear to auscultation bilaterally; no rales, no rhonchi and no wheezes Cardiovascular: Rate/Rhythm: regular rate and regular rhythm Heart Sounds: no gallop and no murmur Vessels: dorsalis pedis pulses present and radial pulses present Extremities: no pedal edema Gastrointestinal (Abdomen): Inspection/Auscultation: normal bowel sounds; abdomen not distended Percussion/Palpation: abdomen soft Musculoskeletal: Head/Neck/Chest: normocephalic, head atraumatic and neck sup ple Skin: Wound examined with wound care nurse and GANG MINER - 5 cm tunneling wound lower mid-abdomen with large amount of brown drainage and visible tissues is gra y and appears non-viable, foul odor. Wound care nurse, Albin Delaney RN collected a deep wound culture, and applied packing/dressing. Neurologic: moves all extremities; no focal motor deficits Psychiatric: Orientation: alert and oriented x 3 Results & Data Results & Data ([facility]) Vital Signs (Past 12 Hours) Vital Signs Temp Pulse Resp BP Pulse Ox 04/26/21 13:20 36.7 C 91 H 18 121/75 98 Laboratory Results Laboratory Results - last 24 hr 04/26/21 04/26/21 04/26/21 13:43 14:09 14:09 WBC 8.62 RBC 3.56 L Hgb 10.2 L Hct 31.2 L MCV 87.6 MCH 28.7 MCHC 32.7 RDW Std Deviation 47.6 H RDW Coeff of Misty 14.6 H Plt Count 518 H MPV 8.6 Immature Gran % (Auto) 0.3 Neut % (Auto) 64.4 Lymph % (Auto) 25.6 [place] % (Auto) 6.3 Eos % (Auto) 3.1 Baso % (Auto) 0.3 Neut # (Auto) 5.54 Lymph # (Auto) 2.21 [place] # (Auto) 0.54 Eos # (Auto) 0.27 Baso # (Auto) 0.03 Immature Gran # (Auto) 0.03 H Sodium 140 Potassium 3.9 Chloride 106 Carbon Dioxide 25 Anion Gap 9 BUN 13 Creatinine 0.76 Est Cr Clr Drug Dosing 142.7 Est GFR ( Amer) 122.0 Est GFR (Non-Af Amer) 105.3 BUN/Creatinine Ratio 17.1 Glucose 101 H Calcium 9.2 SARS-CoV-2, RNA, NAAT NEGATIVE Code Status & VTE Plan VTE Prophylaxis Plan VTE Prophylaxis will be ordered: Yes Supervising Physician Co-Signing Physician Notes Attending addendum: The patient was seen and examined in medical floor She is status post on 11 April and the wound is complicated by ongoing infection and dehiscence She has had courses of IV and oral antibiotic without much improvement Does not have any pain or drainage from that area and denies any fever and or chills Denies any other symptoms On examination No apparent distress at rest She is obese Hemodynamically stable and is afebrile Chestclear to auscultate bilaterally HeartS1-S2, regular Abdomensoft, nontender, the wound is bandaged in the hypogastrium without any localized tenderness and or any adjoining redness or inflammation Extremities-negative for any edema MOWER SHARPENER-alert, awake and oriented x3 Her admission labs reviewed Has nonhealing surgical wound from delivery on 11 April Clinically not infected but will continue broad antibiotic for now and pending ID evaluation GANG MINER consulted Agree with assessment and plan as outlined above by JOHN Marsh Dr
[2021-04-26 14:30] LABS: Basophils # (auto) 0.03 K/uL (0-0.2); Basophils % (auto) 0.3 %; Eosinophils # (auto) 0.27 K/uL (0-0.5); Eosinophils % (auto) 3.1 %; Hematocrit (blood only) 31.2 % (37-47); Hemoglobin 10.2 g/dL (12.0-16.0); Immature Granulocytes # (auto) 0.03 K/uL (0.00-0.02); Immature Granulocytes % (auto) 0.3 %; Lymphocytes # (auto) 2.21 K/uL (1.2-3.4); Lymphocytes % (auto) 25.6 %; Mean Corpuscular Hemoglobin 28.7 pg (25-34); Mean Corpuscular Hgb Conc 32.7 g/dL (32-36); Mean Corpuscular Volume 87.6 fL (80-100); Mean Platelet Volume 8.6 fL (7.4-10.4); Monocytes # (auto) 0.54 K/uL (0.11-0.59); Monocytes % (auto) 6.3 %; Neutrophils # (auto) 5.54 K/uL (1.4-6.5); Neutrophils % (auto) 64.4 %; Platelet Count 518 K/uL (130-400); RDW Coefficient of Variation 14.6 % (11.5-14.5); RDW Standard Deviation 47.6 fL (36.4-46.3); Red Blood Count 3.56 M/uL (4.2-5.4); White Blood Count 8.62 K/uL (4.8-10.8)
[2021-04-26] MEDS ORDERED: MEROPENEM CONSULT ACTIVE PRN ×2 (14:45)
[2021-04-26 14:50] LABS: BUN Creatinine Ratio 17.1 (10-20); Calcium 9.2 mg/dl (8.5-10.1); Creatinine Clr Calc Pharmacy 142.7 ml/min; Est GFR (Non-African American) 105.3 ml/min; Potassium 3.9 mmol/L (3.5-5.1)
--- NOTE | 2021-04-26 15:23 | Consultation ---
Date of Consultation April 26, 2021 Assessment & Plan (1) Wound infection following section, : surgery consult for possible debridement vs. wound vac faculty support coordinator History of Present Illness Requesting Physician: Oebd Bills ND Reason for Consultation: wound infection pot Attending Physician: Shmuel Bills MD History of Present Illness 30 F P2002 s/p repeat 04/11/21 with wound infection now with wound care nurse calling me today requesting hospitalization for wound not getting better with wound vac. Allergies Allergy/AdvReac Type Severity Reaction Status Date / Time No Known Allergies Allergy Verified 04/26/21 09:06 Home Medications Medication Instructions Recorded Confirmed Type vit no.95-ferrous 1 tab PO DAILY 09/13/20 04/26/21 History fumarate 28 mg-folic acid 800 mcg tablet () cyanocobalamin (vitamin B-12) 1,000 mcg PO DAILY 04/11/21 04/26/21 History 1,000 mcg tablet (Vitamin B-12) iron,carbonyl 65 mg-vitamin C 125 1 tab PO DAILY 04/11/21 04/26/21 History mg tablet,delayed release (Vitron-C) sertraline 50 mg tablet (Zoloft) 75 mg PO DAILY 04/11/21 04/26/21 History docusate sodium 100 mg capsule 100 mg PO DAILY 30 Days #30 cap 04/14/21 04/26/21 Rx labetalol 100 mg tablet 100 mg PO BID 30 Days #60 tab 04/14/21 04/26/21 Rx vits no.124-ferrous fum 1 tab PO DAILY@08 30 Days #30 tab 04/14/21 04/26/21 Rx 27 mg iron-folic acid 800 mcg tablet ( Vitamin) cephalexin 500 mg capsule 500 mg PO Q8H 10 Days #30 cap 04/24/21 04/26/21 Rx metronidazole 500 mg tablet 500 mg PO Q8H 14 Days #42 tab 04/24/21 04/26/21 Rx Patient History Medical History Anxiety Asthma Cholecystitis, acute with cholelithiasis Former cigarette smoker Gestational diabetes Gestational hypertension Migraine Morbid obesity Surgical History History of laparoscopic cholecystectomy Previous section Family History Brother Pulmonary embolism Mother Hypertension Father FH: kidney cancer Social History Smoking Status: Former smoker Tobacco Type: Cigarettes Cigarettes Per Day: Quit in June 2020; Second Hand Exposure: No; Hx Alcohol Use: Yes Alcohol type: beer, wine and hard liquor Hx Substance Use: No Preferred Language: Ghanaian Communication Ability: Effective Senior Telecommunications Engineer Required: No Beliefs That Will Affect Care: None marital status: Single Current Living Situation: Family Current Living Situation Comment: Lives with S.O. 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 Feels Safe at Home: Yes Gender Identity: Female Assistive Devices: None Review of Systems Review of Systems: All systems reviewed & are unremarkable except as noted in HPI & below Physical Exam Constitutional: WD/WN, vitals as above + obese Eyes: PERRL, conjunctivae normal, anicteric sclerae Respiratory: normal respiratory effort, lungs clear to auscultation Gastrointestinal (Abdomen): normal bowel sounds, soft, nontender, no hepatosplenomegaly Inspection/Auscultation: + significant pannus and + abdominal surgical incision (wound open paratially cultures done some necrotic like tissue in fat layer) skin edges slightly indurated nn-tender to touch fascia intact on exam Skin: no rashes, warm and dry Neurologic: patellar DTR's 2+ bilat, sensation intact Psychiatric: A+Ox3, euthymic affect Results & Data ([facility]) Vital Signs (Past 12 Hours) Vital Signs Temp Pulse Resp BP Pulse Ox 04/26/21 13:20 36.7 C 91 H 18 121/75 98 04/26/21 13:15 36.7 C 94 H 16 121/75 97 Laboratory Results 04/26/21 04/26/21 04/26/21 13:43 14:09 14:09 WBC 8.62 RBC 3.56 L Hgb 10.2 L Hct 31.2 L MCV 87.6 MCH 28.7 MCHC 32.7 RDW Std Deviation 47.6 H RDW Coeff of Misty 14.6 H Plt Count 518 H MPV 8.6 Immature Gran % (Auto) 0.3 Neut % (Auto) 64.4 Lymph % (Auto) 25.6 [place] % (Auto) 6.3 Eos % (Auto) 3.1 Baso % (Auto) 0.3 Neut # (Auto) 5.54 Lymph # (Auto) 2.21 [place] # (Auto) 0.54 Eos # (Auto) 0.27 Baso # (Auto) 0.03 Immature Gran # (Auto) 0.03 H Sodium 140 Potassium 3.9 Chloride 106 Carbon Dioxide 25 Anion Gap 9 BUN 13 Creatinine 0.76 Est Cr Clr Drug Dosing 142.7 Est GFR ( Amer) 122.0 Est GFR (Non-Af Amer) 105.3 BUN/Creatinine Ratio 17.1 Glucose 101 H Calcium 9.2 SARS-CoV-2, RNA, NAAT NEGATIVE Wound cultures pending
[2021-04-26] MEDS: DAPTOmycin 500 MG in SYRINGE 0 ML IV SCH (16:12)
[2021-04-26] MEDS: MEROPENEM 500 MG in SYRINGE 0 ML IV SCH ×2 (16:12→21:03)
--- NOTE | 2021-04-26 16:30 | Surgery Consultation ---
Date of Consultation April 26, 2021 Assessment & Plan (1) Dehiscence of section wound, : wound image from previous admission reviewed discussed with WOCN will plan for debridement in OR tomorrow Supervising Physician Co-Signing Physician Notes as nkiita roberto pt agreeable to further debridement will plan for tomorrow History of Present Illness Attending Physician: Shmuel Bills MD History of Present Illness 30 y/o female BMI 50 is now 2 weeks s/p with nonhealing wound. She was started on po abx at her one week check-up. Then admitted from 04/22-04/24 for IV abx and wound vac placement. Was seen in wound clinic today for first vac change and referred for admission and further eval. She overall feels well, has good appetite. No fevers or chills. Allergies Allergy/AdvReac Type Severity Reaction Status Date / Time No Known Allergies Allergy Verified 04/26/21 09:06 Home Medications Medication Instructions Recorded Confirmed Type vit no.95-ferrous 1 tab PO DAILY 09/13/20 04/26/21 History fumarate 28 mg-folic acid 800 mcg tablet () cyanocobalamin (vitamin B-12) 1,000 mcg PO DAILY 04/11/21 04/26/21 History 1,000 mcg tablet (Vitamin B-12) iron,carbonyl 65 mg-vitamin C 125 1 tab PO DAILY 04/11/21 04/26/21 History mg tablet,delayed release (Vitron-C) sertraline 50 mg tablet (Zoloft) 75 mg PO DAILY 04/11/21 04/26/21 History docusate sodium 100 mg capsule 100 mg PO DAILY 30 Days #30 cap 04/14/21 04/26/21 Rx labetalol 100 mg tablet 100 mg PO BID 30 Days #60 tab 04/14/21 04/26/21 Rx vits no.124-ferrous fum 1 tab PO DAILY@08 30 Days #30 tab 04/14/21 04/26/21 Rx 27 mg iron-folic acid 800 mcg tablet ( Vitamin) cephalexin 500 mg capsule 500 mg PO Q8H 10 Days #30 cap 04/24/21 04/26/21 Rx metronidazole 500 mg tablet 500 mg PO Q8H 14 Days #42 tab 04/24/21 04/26/21 Rx Patient History Medical History Anxiety Asthma Cholecystitis, acute with cholelithiasis Former cigarette smoker Gestational diabetes Gestational hypertension Migraine Morbid obesity Surgical History History of laparoscopic cholecystectomy Previous section Family History Brother Pulmonary embolism Mother Hypertension Father FH: kidney cancer Social History Smoking Status: Former smoker Tobacco Type: Cigarettes Cigarettes Per Day: Quit in June 2020; Second Hand Exposure: No; Hx Alcohol Use: Yes Alcohol type: beer, wine and hard liquor Hx Substance Use: No Preferred Language: Bengali Communication Ability: Effective Principal Bioinformatics Specialist Required: No Beliefs That Will Affect Care: None marital status: Single Current Living Situation: Family Current Living Situation Comment: Lives with S.O. 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 Feels Safe at Home: Yes Gender Identity: Female Assistive Devices: None Review of Systems Constitutional: no fever, no chills and no anorexia Physical Exam Constitutional: WD/WN, vitals as above Gastrointestinal (Abdomen): Inspection/Auscultation: + abdominal surgical incision (recently packed, upper skin edge has induration, no surrounding erythema) Results & Data ([facility]) Vital Signs (Past 12 Hours) Vital Signs Temp Pulse Resp BP Pulse Ox 04/26/21 15:21 37.1 C 87 16 134/79 98 04/26/21 13:20 36.7 C 91 H 18 121/75 98 04/26/21 13:15 36.7 C 94 H 16 121/75 97 PG Care Time/CCT Total # of Minutes Spent Total Time Spent with Patient: Total time spent is greater than 50% in coordination of care (as documented) at patient's floor/unit and/or counseling patient: Coding Level of Care Code 14381 Inpt Consult Level 2 Diagnoses Dehiscence of section wound, O90.0
[2021-04-27] MEDS: MEROPENEM 500 MG in SYRINGE 0 ML IV SCH ×4 (02:52→21:36)
[2021-04-27] MEDS ORDERED: PROPOFOL IV EMULSION 10 MG/ML 20 ML VIAL IV ONE ×2 (06:57→07:20)
[2021-04-27] MEDS ORDERED: LIDOCAINE 2% 2 ML VIAL/AMP(20MG/ML) INFIL ONE (06:57)
[2021-04-27] MEDS ORDERED: LABETALOL HCL IV 5 MG/ML 20ML IV PRN (07:04)
[2021-04-27] MEDS ORDERED: PHENYLEPHRINE 100MCG/ML 5ML SYR IV PRN (07:04)
[2021-04-27] MEDS ORDERED: HYDROmorphone INJ 1 MG/ML SYRINGE IV PRN (07:04)
[2021-04-27] MEDS ORDERED: ONDANSETRON INJ 2 MG/ML 2 ML VIAL IV PRN (07:04)
[2021-04-27] MEDS ORDERED: MEPERIDINE HCL 25 MG/ML CARP/VIAL IV PRN (07:04)
[2021-04-27] MEDS ORDERED: ATROPINE SULFATE 0.1 MG/ML 10ML SYR IV PRN (07:04)
[2021-04-27] MEDS ORDERED: fentaNYL citrate 100 MCG/2 ML VIAL IV PRN (07:04)
[2021-04-27] MEDS ORDERED: ePHEDrine sulfate 50 MG/ML AMP IV PRN (07:04)
--- NOTE | 2021-04-27 07:05 | Anesthesiology Consultation ---
Date of Service April 27, 2021 Assessment & Plan (1) Encounter for pre-operative examination: Chart Review Chart Review: Acceptable Risk for Surgery (necessary surgery) and Patient NOT seen in Pre Admission Testing Consults Requested none History Surgery Operation Date: 04/27/21 07:30 Proposed Procedures p Debridement Abdominal Wound Possible Wound Vac Application - Cristopher Hamilton MD, FACS Height/Weight Height: 5 ft 3 in Weight: 130.181 kg Allergies Allergy/AdvReac Type Severity Reaction Status Date / Time No Known Allergies Allergy Verified 04/26/21 09:06 Medications Home Medications Medication Instructions Recorded Confirmed Last Taken vit no.95-ferrous 1 tab PO DAILY 09/13/20 04/26/21 04/26/21 fumarate 28 mg-folic acid 800 mcg tablet () cyanocobalamin (vitamin B-12) 1,000 mcg PO DAILY 04/11/21 04/26/21 04/26/21 1,000 mcg tablet (Vitamin B-12) iron,carbonyl 65 mg-vitamin C 125 1 tab PO DAILY 04/11/21 04/26/21 04/11/21 06:30 mg tablet,delayed release (Vitron-C) sertraline 50 mg tablet (Zoloft) 75 mg PO DAILY 04/11/21 04/26/21 04/26/21 docusate sodium 100 mg capsule 100 mg PO DAILY 30 Days #30 cap 04/14/21 04/26/21 04/26/21 labetalol 100 mg tablet 100 mg PO BID 30 Days #60 tab 04/14/21 04/26/21 04/26/21 vits no.124-ferrous fum 1 tab PO DAILY@08 30 Days #30 tab 04/14/21 04/26/21 04/26/21 27 mg iron-folic acid 800 mcg tablet ( Vitamin) cephalexin 500 mg capsule 500 mg PO Q8H 10 Days #30 cap 04/24/21 04/26/21 04/26/21 metronidazole 500 mg tablet 500 mg PO Q8H 14 Days #42 tab 04/24/21 04/26/21 04/26/21 Active Medications Generic Name Dose Route Start Last Admin Trade Name Freq PRN Reason Stop Dose Admin Meropenem 500 mg/ Syringe 10 mls @ 2 mls/min 04/26/21 15:00 04/27/21 02:52 IV 05/03/21 14:59 2 mls/min Q6H NAVID Administration Protocol Daptomycin 500 mg/ Syringe 10 mls @ 5 mls/min 04/26/21 16:00 04/26/21 16:12 IV 05/03/21 15:59 5 mls/min Q24H NAVID Administration Protocol NPO Date Last Intake of Fluids: 04/26/21 Time Last Intake of Fluids: 12:00 Date Last Intake of Solids: 04/26/21 Time Last Intake of Solids: 12:00 Past Medical History Medical History Anxiety Asthma Cholecystitis, acute with cholelithiasis Former cigarette smoker Gestational diabetes Gestational hypertension Migraine Morbid obesity Past Family History Family History Brother Pulmonary embolism Mother Hypertension Father FH: kidney cancer Past Surgical History Surgical History History of laparoscopic cholecystectomy Previous section Social History Smoking Status: Former smoker Smoking cigarettes per day: Quit in June 2020 Hx Alcohol Use: Yes Alcohol type: beer, wine and hard liquor alcohol intake frequency: a few times a month Alcohol Intake Frequency Comment: Last intake before Hx Substance Use: No substance use type: does not use Physical Exam Vital Signs Last Vital Signs Temp 37.3 C 04/27/21 06:16 Pulse 85 04/27/21 06:16 Resp 16 04/27/21 06:16 BP 120/78 04/27/21 06:16 Pulse Ox 97 04/27/21 06:16 Testing Laboratory Results 04/26/21 14:09 04/26/21 14:09 04/26/21 14:55 Gram Stain - Final Abdomen
[2021-04-27] MEDS ORDERED: fentaNYL citrate 100 MCG/2 ML VIAL ONE ×2 (07:20→08:02)
[2021-04-27] MEDS ORDERED: MIDAZOLAM HCL 1 MG/ML 2ML VIAL ONE (07:20)
--- NOTE | 2021-04-27 07:42 | History & Physical Bridge Note ---
Date of Service April 27, 2021 History & Physical Bridge Note I have examined the patient, reviewed the History & Physical and in the interval since the performance of the History & Physical I have noted the following changes of clinical significance: no changes noted permit signed all question answered pt marked states no need to talk to anyone post op Supervising Physician Co-Signing Physician Notes as nikita roberto pt agreeable to further debridement will plan for tomorrow
[2021-04-27] MEDS ORDERED: DEXAMETHASONE SOD INJ 4 MG/ML VIAL ONE (07:57)
[2021-04-27] MEDS ORDERED: ONDANSETRON INJ 2 MG/ML 2 ML VIAL ONE (07:57)
[2021-04-27] MEDS ORDERED: HYDROmorphone INJ 2 MG/ML SYR/VIAL ONE (07:58)
--- NOTE | 2021-04-27 08:31 | Post Operative Brief Note ---
PG Immediate Post Op with CF Date of Surgery April 27, 2021 Pre & Post Diagnosis Operation Date: 04/27/21 07:30 Pre-Op Diagnosis: Dehiscence of section wound, abdominal wall and subcutaneous necrotic tissue Post-Op Diagnosis: Dehiscence of section wound, Incision and debridement-15cm x 15cm Abscess with necrotic cavity I identified the patient and participated in the time-out.: Yes Procedure Operation Date: 04/27/21 07:30 Actual Procedures p Debridement Abdominal Wound, Wound Vac Application - Cristopher Hamilton MD, FACS Surgeon Cristopher Hamilton MD, FACS Data Management es roberto Estimated Blood Loss 30 Findings Consistent with Post-Op Diagnosis Specimens Specimen Description: Culture 1. Abdominal Wall
--- NOTE | 2021-04-27 08:54 | Anesthesiology Progress Note ---
Date of Service April 27, 2021 Anesthesia Post Procedure Vital Signs Vital Signs: Temp Pulse Resp BP Pulse Ox 04/27/21 06:16 37.3 C 85 16 120/78 97 04/26/21 22:21 37.5 C 98 H 18 135/83 96 04/26/21 15:21 37.1 C 87 16 134/79 98 04/26/21 13:20 36.7 C 91 H 18 121/75 98 04/26/21 13:15 36.7 C 94 H 16 121/75 97 Transfer of Care Handoff Completed per policy Notes Mental Status: alert / awake / arousable Patient Amnestic to Procedure: Yes Nausea / Vomiting: adequately controlled Pain: adequately controlled Airway Patency, RR, SpO2: stable & adequate BP & HR: stable & adequate Hydration State: stable & adequate Anesthetic Complications: no major complications apparent and Pt Satisfied with anesthetic care
--- NOTE | 2021-04-27 08:54 | Operative Report ---
Post Operative Report Pre & Post Diagnosis Operation Date: 04/27/21 07:30 Pre-Op Diagnosis: Dehiscence of section wound, Post-Op Diagnosis: Dehiscence of section wound, Incision and debridement-15cm x 15cm(incisional debridement 225 cm) Abscess with necrotic cavity I identified the patient and participated in the time-out.: Yes Procedure Operation Date: 04/27/21 07:30 Actual Procedures p Incision and Debridement of Abdominal Wound Abscess and necrotic tissue- Cristopher Hamilton MD, FACS The patient was brought into the operating theater under general LMA anesthesia we retracted the large panniculus by placing 4 inch nylon tape on the other side flank to expose this large infected area in the inferior portion of this large panniculus above the symphysis pubis At this point the area was prepped with Betadine solution and properly draped timeout was had patient was identified Once we are able to explore the area the patient had indurated and some ischemic tissue on the fatty tissue in the superior lateral aspect of the previous cavity also the patient has significant amount of necrotic fat and ischemic tissue from the superior aspect going down all the way to after exploring the suture line of the abdominal wall closure we were able to put her hands from the symphysis pubis onto the suturessutures that we saw and extended about 15 cm the inferior aspect of the flap adjacent to the symphysis pubis inferiorly going to the fascial suture was nonnecrotic and excellent blood supply most of the necrotic tissue was in the anterior aspect of the incision going down to the suture line of the abdominal wall closure we at this point meticulously removed all this necrotic fatty tissue and also resected a good portion of the ischemic skin around the area when we were done we measured the amount of debridement that we had done as far as the dimensions of the cavity it was 15 cm x 15 cm and extending down from the cephalic portion of the transverse incision down to the abdominal wall closure we took pictures intraoperatively Once we felt that we had removed all the ischemic and necrotic tissue and left only behind viable tissue I did take cultures of the subcutaneous fatty tissue I elected to pack the pocket inferiorly going to the fascial closure would 2 inch Kerlix with normal saline in the event of it was sutured the left side of the incision with 3-0 silk We then placed another 2 inch Kerlix into the subcutaneous tissue sutured the end of the Curlex to the right side of the incision with 3-0 silk we then loosely approximated the scrotal skin edges over both gauzes with 3-0 silk interrupted suture a dressing was applied procedure was tolerated well by the patient estimate blood loss approximately 30 cc Addendum Es roberto was present throughout the procedure and helped the retraction exposure and wound closure Surgeon Cristopher Hamilton MD, FACS Corporate Travel Coordinator es roberto Estimated Blood Loss 30 Findings Consistent with Post-Op Diagnosis Necrotic subcutaneous tissue and skin edge Specimens Debrided tissue Culture and sensitivity of the subcutaneous tissue in the incision Indications Status post approximately 2 weeks ago with infected wound and subcutaneous tissue Description of Procedure merda I attest to the content of the Intraoperative Record and any orders documented therein. Any exceptions are noted below.
[2021-04-27] MEDS ORDERED: MoRPHine SULFATE 4 MG/ML 1 ML CARP\\VIAL IV PRN (09:21)
[2021-04-27] MEDS ORDERED: MoRPHine SULFATE 2 MG/ML CARP IV PRN (09:21)
[2021-04-27] MEDS ORDERED: oxyCODONE/ACETAMINOPHEN 5mg/325mg TAB PO PRN ×2 (09:21)
[2021-04-27] MEDS: ONDANSETRON INJ 2 MG/ML 2 ML VIAL IV SCH ×3 (09:30→21:53)
[2021-04-27] MEDS: DAPTOmycin 500 MG in SYRINGE 0 ML IV SCH (16:05)
--- NOTE | 2021-04-27 16:52 | Hospitalist Progress Note ---
Date of Service April 27, 2021 Assessment & Plan (1) Wound infection following section, : (2) Dehiscence of section wound, : Plan: Present on admission as a direct admission for infected (abdominal ) wound Failed outpatient therapy S/P debridement Abdominal Wound, Wound Vac Application performed by Dr. Joy MD Continue IV abx with dapto Continue pain control Blood cx no growth Wound cx pending Continue wound care DVT Prophylaxis: SCDs Code Status: Full code Admission and Anticipated Discharge Date Admission Date: April 26, 2021 Subjective Pt was seen and examined for follow up of infected wound Sitting in chair with no acute distress Pt said that she feels fine She said that she was able to see her son today She said that she is not having any pain in her abdomen Denies any chest pain, palpitation, dizziness and SOB Review of Systems Review of Systems: All systems reviewed & are unremarkable except as noted in Subjective Physical Exam Physical Exam: General- No acute distress Head- atraumatic Eyes- PERRL, EOMI, ENT- oropharynx clear Neck- supple, no JVD Lungs- clear to auscultation Heart- regular rhythm; no murmur Abdomen- normal bowel sounds, +dressing covers wound Extremities- no calf tenderness Neuro- alert, oriented x 3; PERRL, EOMI; no facial palsy; no dysarthria Skin- warm & dry Results & Data Results & Data ([facility]) Vital Signs (Past 12 Hours) Vital Signs Temp Pulse Pulse Pulse Resp BP Pulse Ox 04/27/21 15:35 37.5 C 87 18 124/72 96 04/27/21 12:25 37.0 C 81 16 116/76 97 04/27/21 11:20 37 C 84 20 115/72 97 04/27/21 10:20 36.9 C 81 18 107/69 97 04/27/21 09:50 36.8 C 83 18 114/70 97 04/27/21 09:20 37.5 C 84 16 113/73 97 04/27/21 09:10 36.9 C 76 17 108/57 L 97 04/27/21 09:00 82 24 108/63 97 04/27/21 08:50 89 20 113/62 98 04/27/21 08:40 36.4 C L 85 22 115/60 100 04/27/21 06:16 37.3 C 85 16 120/78 97
[2021-04-28] MEDS: MEROPENEM 500 MG in SYRINGE 0 ML IV SCH ×4 (04:16→21:50)
[2021-04-28] MEDS: ONDANSETRON INJ 2 MG/ML 2 ML VIAL IV SCH ×4 (04:40→21:50)
[2021-04-28 06:40] LABS: Hematocrit (blood only) 31.6 % (37-47); Mean Corpuscular Hgb Conc 31.6 g/dL (32-36); Mean Corpuscular Volume 88.5 fL (80-100); Mean Platelet Volume 8.7 fL (7.4-10.4); Platelet Count 635 K/uL (130-400); RDW Coefficient of Variation 14.7 % (11.5-14.5); Red Blood Count 3.57 M/uL (4.2-5.4)
--- NOTE | 2021-04-28 09:47 | Surgery Progress Note ---
Date of Service April 28, 2021 Assessment & Plan (1) Dehiscence of section wound, : Plan: POD#1 I&D of wound WBC 11.6, pt afebrile Continue IV abx Wound packing in place, keep in place for now. May change outer dressing as needed Wound care consult placed for evaluation of wound vac tomorrow Pt seen/examined with Dr. Hamilton Admission and Anticipated Discharge Date Admission Date: April 26, 2021 Subjective Patient feeling well, offers no complaints. Physical Exam Physical Exam: awake/alert Gastrointestinal (Abdomen): post surgical dressings in place Results & Data ([facility]) Vital Signs (Past 12 Hours) Vital Signs Temp Pulse Pulse Resp BP Pulse Ox 04/28/21 08:17 37.3 C 81 16 122/72 98 04/28/21 04:34 36.8 C 57 L 16 107/74 96 04/27/21 23:39 36.7 C 63 16 124/77 95 PG Care Time/CCT Total # of Minutes Spent Total Time Spent with Patient: Total time spent is greater than 50% in coordination of care (as documented) at patient's floor/unit and/or counseling patient: Coding Level of Care Code None Diagnoses Dehiscence of section wound, O90.0
[2021-04-28] MEDS: DAPTOmycin 500 MG in SYRINGE 0 ML IV SCH (15:24)
--- NOTE | 2021-04-28 19:49 | Hospitalist Progress Note ---
Date of Service April 28, 2021 Assessment & Plan (1) Wound infection following section, : (2) Dehiscence of section wound, : Plan: Present on admission as a direct admission for infected (abdominal ) wound Failed outpatient therapy S/P #1 debridement Abdominal Wound, Wound Vac Application performed by Dr. Joy MD Continue IV abx with dapto and Meropenem Continue pain control Blood cx no growth Wound cx grew pinpoint growth Continue wound care Will nee to eval for wound vac by wound care DVT Prophylaxis: SCDs Code Status: Full code Admission and Anticipated Discharge Date Admission Date: April 26, 2021 Subjective Pt was seen and examined for follow up of infected wound Sitting in bed with no acute distress with and the at bedside Pt said that she feels fine Denies any chest pain, palpitation, dizziness and SOB Review of Systems Review of Systems: All systems reviewed & are unremarkable except as noted in Subjective Physical Exam Physical Exam: General- No acute distress Head- atraumatic Eyes- PERRL, EOMI, ENT- oropharynx clear Neck- supple, no JVD Lungs- clear to auscultation Heart- regular rhythm; no murmur Abdomen- normal bowel sounds, +dressing in place Extremities- no calf tenderness Neuro- alert, oriented x 3; PERRL, EOMI; no facial palsy; no dysarthria Skin- warm & dry Results & Data Results & Data ([facility]) Vital Signs (Past 12 Hours) Vital Signs Temp Pulse Resp BP Pulse Ox 04/28/21 15:21 37.0 C 89 16 134/78 98 04/28/21 08:17 37.3 C 81 16 122/72 98
[2021-04-29] MEDS: MEROPENEM 500 MG in SYRINGE 0 ML IV SCH ×4 (04:00→21:35)
[2021-04-29] MEDS: ONDANSETRON INJ 2 MG/ML 2 ML VIAL IV SCH ×4 (04:07→21:29)
--- NOTE | 2021-04-29 09:01 | Surgery Progress Note ---
Date of Service April 29, 2021 Assessment & Plan (1) Dehiscence of section wound, : Plan: POD#2 Once the VAC system was put in place the patient to be discharged Intraoperative cultures from most recent debridement are not back yet At this time we will let the infectious disease consult decide on the antibiotic therapy The patient is instructed to follow-up with the wound clinic which she had been seen before POD#1 I&D of wound WBC 11.6, pt afebrile Continue IV abx Wound packing in place, keep in place for now. May change outer dressing as needed Wound care consult placed for evaluation of wound vac tomorrow Pt seen/examined with Dr. Hamilton Admission and Anticipated Discharge Date Admission Date: April 26, 2021 Subjective Patient is approximately 48 hours postop debridement of necrotic tissue and a previously infected surgical wound She denies any pain chills or fever she actually walks around without any difficulty Physical Exam Physical Exam: The abdominal wall wound that had been debrided and packed with gauze which was held in place with some loose nylon suture approximating the edges of the incision there is no cellulitis minimal residual induration if any of the fatty tissue and skin above and below the sutures removed the packing was removed one was deep down into the crater behind and the abdominal wall into the fascial closure and one on the subcutaneous tissue the tissue itself is very viable there is no evidence of any recurrent ischemic areas the wound nurse inspected the area and will be able to apply packing what it VAC system the patient is familiar with this since she has had it before Results & Data ([facility]) Vital Signs (Past 12 Hours) Vital Signs Temp Pulse Resp BP Pulse Ox 04/29/21 07:41 36.9 C 77 18 107/74 98 PG Care Time/CCT Total # of Minutes Spent Total Time Spent with Patient: Total time spent is greater than 50% in coordination of care (as documented) at patient's floor/unit and/or counseling patient: Coding Level of Care Code None Diagnoses Dehiscence of section wound, O90.0
--- NOTE | 2021-04-29 12:50 | Hospitalist Progress Note ---
Date of Service April 29, 2021 Assessment & Plan (1) Wound infection following section, : (2) Dehiscence of section wound, : Plan: Present on admission as a direct admission for infected (abdominal ) wound Failed outpatient therapy S/P #2 debridement Abdominal Wound, Wound Vac Application performed by Dr. Joy MD Continue IV abx with dapto and Meropenem Continue pain control Blood cx no growth Wound cx grew pinpoint growth re incubating Continue wound care, wound vac to be placed today and will have OP f/u with wound center ID consult placed to determine antibiotic for discharge DVT Prophylaxis: SCDs PCP: None, wishes to establish with Fam Singh, will discuss with INOCENCIO Bertrand for Pablo to establish appt with Pablo PCP, will need outp wound center appt Code Status: Full code Pt was seen and examined in collaboration with Dr. Salvador, please see addendum Admission and Anticipated Discharge Date Admission Date: April 26, 2021 Supervising Physician Co-Signing Physician Notes Pt was seen and examined. Agree with Danae LOPEZ exam, assessment and plan. Present on admission as a direct admission for infected (abdominal ) wound Failed outpatient therapy S/P #2 debridement Abdominal Wound, Wound Vac Application performed by Dr. Joy MD On IV abx with dapto and Meropenem ID consulted to determine antibiotic for discharge Continue pain control Blood cx no growth Wound cx grew pinpoint growth Continue wound care MD [place] Subjective Patient was seen and examined in room 312. Follow-up wound dehiscence from . Overall feels well this morning and offers no acute concerns. She states a wound VAC will be placed today. She also states general surgery cleared her for discharge. She denies fever, chills, sweats, lightheadedness, dizziness, chest pain, shortness breath, nausea, vomiting, abdominal pain. She is passing flatus and moving bowels. She is tolerating diet. Review of Systems Review of Systems: All systems reviewed & are unremarkable except as noted in HPI & below Physical Exam Physical Exam: Gen: WD/WN, NAD, A&O x3 HEENT: Normocephalic, atraumatic, conjunctivae moist, sclerae anicteric, mucous membranes moist. Lung: Clear to Auscultation bilaterally, no wheezes/rales/rhonchi Heart: Regular rate, regular rhythm, no murmurs, rubs, or gallops Abdomen: obese abd, wound dresing cdi, wound noted in picture on chart, Soft, NT, ND +BS x 4 Extremities: No edema Skin: Warm, no rash, negative turgor. Results & Data Results & Data ([facility]) Vital Signs (Past 12 Hours) Vital Signs Temp Pulse Resp BP Pulse Ox 04/29/21 07:41 36.9 C 77 18 107/74 98 Medications Administered Current Inpatient Medications Meropenem 500 mg/ Syringe 10 mls @ 2 mls/min IV Q6H NAVID; Protocol Stop: 05/03/21 14:59 Last Admin: 04/29/21 09:47 Dose: 2 mls/min Documented by: Daptomycin 500 mg/ Syringe 10 mls @ 5 mls/min IV Q24H NAVID; Protocol Stop: 05/03/21 15:59 Last Admin: 04/28/21 15:24 Dose: 5 mls/min Documented by: Miscellaneous Information (Meropenem Consult Active) 1 ea N/A UD PRN PRN Reason: Consult Stop: 05/26/21 14:44 Miscellaneous Information (Daptomycin Consult Active) 1 ea N/A UD PRN PRN Reason: Consult Stop: 05/26/21 14:44 Morphine Sulfate (Morphine Sulfate 4 Mg/Ml 1 Ml Carp\Vial) 4 mg IV Q1H PRN PRN Reason: Pain Stop: 05/11/21 09:20 Morphine Sulfate (Morphine Sulfate 2 Mg/Ml Carp) 2 mg IV Q1H PRN PRN Reason: Pain Stop: 05/11/21 09:20 Ondansetron HCl (Ondansetron Inj 2 Mg/Ml 2 Ml Vial) 4 mg IV Q6H NAVID Stop: 05/27/21 09:20 Last Admin: 04/29/21 08:18 Dose: Not Given Documented by: Oxycodone/Acetaminophen (Oxycodone/Acetaminophen 5mg/325mg Tab) 1 tab PO Q4H PRN PRN Reason: Pain Stop: 05/11/21 09:20 Oxycodone/Acetaminophen (Oxycodone/Acetaminophen 5mg/325mg Tab) 2 tab PO Q4H PRN PRN Reason: Pain Stop: 05/11/21 09:20
[2021-04-29] MEDS: DAPTOmycin 500 MG in SYRINGE 0 ML IV SCH (15:29)
[2021-04-29] MEDS ORDERED: ACETAMINOPHEN 325 MG TAB PO PRN (18:09)
[2021-04-30] MEDS: ONDANSETRON INJ 2 MG/ML 2 ML VIAL IV SCH ×2 (03:06→09:01)
[2021-04-30] MEDS: MEROPENEM 500 MG in SYRINGE 0 ML IV SCH ×2 (04:38→09:03)
[2021-04-30 06:24] LABS: Creatinine Clr Calc Pharmacy 166.8 ml/min; Est GFR (African American) 138.1 ml/min; Est GFR (Non-African American) 119.1 ml/min
--- NOTE | 2021-04-30 10:27 | Discharge Summary ---
Date of Service April 30, 2021 Admission HPI Per Admitting Provider This is a 30 y/o female with a PMH of morbid obesity, gestational diabetes, mild asthma, and migraines who presents for direct admission due to wound infection and dehiscence of the incision from 04/11/21. This was her second . Of note, pt had insulin-requiring gestational DM with poorly controlled blood sugars during most recent . She also had severe pre- eclampsia resulting in the need for the repeat . She presented to outpatient CARDI[facility] CATH TECHNICIAN for her one week incision check on 04/19/21 and had started with fever/chills the day prior. Exam same day showed 4 cm dehiscence with associated erythema and yellow drainage. She was started on Amoxicillin. She was seen in f/u on 04/22/21 and referred to the ED for evaluation, where she was referred for admission for wound care and IV antibiotics. She was admitted 04/22- 04/24 and given IV daptomycin. She was seen by the wound care nurse and wound VAC was applied. She was discharged on oral cephalexin and metronidazole. Wound c ulture grew out Prevotella BVI. Pt presented today to wound clinic for a follow-up. Evaluation in wound clinic revealed a malodorous wound with significant amount of necrotic fat so pt was referred for direct admission for broad-spectrum IV antibiotics and potential OR washout and debridement vs. application of an irrigating wound VAC. She denies fevers or chills at present. No significant pain at the present. She has been eating, drinking, urinating without difficulty. No constipation or diarrhea. She is not . Admission Exam Per Admitting Provider Constitutional: well developed and well nourished; no acute distress Eyes: + anicteric sclerae Neck: trachea midline Respiratory: no respiratory distress and no labored breathing Auscultation: lungs clear to auscultation bilaterally; no rales, no rhonchi and no wheezes Cardiovascular: Rate/Rhythm: regular rate and regular rhythm Heart Sounds: no gallop and no murmur Vessels: dorsalis pedis pulses present and radial pulses present Extremities: no pedal edema Gastrointestinal (Abdomen): Inspection/Auscultation: normal bowel sounds; a bdomen not distended Percussion/Palpation: abdomen soft Musculoskeletal: Head/Neck/Chest: normocephalic, head atraumatic and neck supple Skin: Wound examined with wound care nurse and [employer] - 5 cm tunneling wound lower mid-abdomen with large amount of brown drainage and visible tissues is desir and appears non-viable, foul odor. Wound care nurse, Albin Delaney RN collected a deep wound culture, and applied packing/dressing. Neurologic: moves all extremities; no focal motor deficits Psychiatric: Orientation: alert and oriented x 3 Principal Diagnosis C section wound dehiscence Wound infection following C section Discharge Exam Gen: WD/WN, NAD, A&O x3 HEENT: Normocephalic, atraumatic, conjunctivae moist, sclerae anicteric, mucous membranes moist. Lung: Clear to Auscultation bilaterally, no wheezes/rales/rhonchi Heart: Regular rate, regular rhythm, no murmurs, rubs, or gallops Abdomen: obese abd, +wound vac, wound noted in picture on chart, Soft, NT, ND +BS x 4 Extremities: No edema Skin: Warm, no rash, negative turgor. Discharge Data Allergies Allergy/AdvReac Type Severity Reaction Status Date / Time No Known Allergies Allergy Verified 05/06/21 11:46 Consultations 04/26/21 11:22 Consult Gynecology Routine 04/26/21 15:04 Consult General Surgery Routine 04/28/21 23:53 Consult Infectious Diseases Routine Procedures Performed Operation Date: 04/27/21 07:30 Actual Procedures p Incision and Debridement of Abdominal Wound Abscess - Cristopher Hamilton MD, [facility] Hospital Course (1) Wound infection following section, : This is a 30-year-old female who underwent on 04/11/2021. was complicated by gestational diabetes on insulin, chronic hypertension, preeclampsia and morbid obesity. Patient unfortunately suffered wound dehiscence. She presented to ED on 04/26/2021 secondary to worsening of wound. She was seen and evaluated by general surgery and underwent surgical debridement of wound. She was also seen and evaluated by wound care. Wound cultures were obtained. She was seen and evaluated by infectious disease. Final wound culture still pending but is recommended she be discharged home on 10-day course of oral cefdinir and Flagyl. On 04/29/2021 her wound VAC was replaced and she wi ll follow up closely with wound care at discharge. On discharge her wound had healthy-appearing tissue and surgical team felt source of infection was controlled. On day of discharge her vital signs are stable and she offers no acute concerns. Wound VAC was in place she was tolerating regular diet. She will follow up tomorrow with wound center and complete a 10-day course of antibiotics. Total Time Total Time Spent Total Time Spent (In Minutes): 35 minutes Discharge Plan Discharge Items Patient Disposition: Home - Self-Care Reason For Visit: WOUND DEHISCENCE AND INFECTION Discharge Diagnosis: C section wound dehiscence Wound infection following C section Activity: Resume your previous activity Lifting: None Bathing: Keep incision dry Bathing Comment: please discuss with wound care center regarding bathing instructions Exercise/Sports: None Driving/Machine Use: No driving until cleared by surgery Weightbearing: Full weightbearing Non-emergency contact: Primary Care Provider and Surgeon Call non-emergency contact if: you have any medication questions, your symptoms worsen, your pain is worsening, your pain is unusual for you, you have a fever, your temperature is above 101, your wound has increased redness, your wound has increased drainage and your wound pain has increased Follow-up/Referrals: Cristopher Hamilton MD, FACS [Surgeon] - 05/08/21 2:45 pm (May call to schedule follow up in clinic within 1 week) Fam Singh DO [Physician] - 05/02/21 12:20 pm (Date & Time 05/02/2021 12:20 PM Provider Ester Huber PA-C Department [facility] ) Diet: Regular Addtl Attending Provider Instructions: MEDICATION CHANGES: Metronidazole 500 mg 3 times a day x10 days Cefdinir 300 mg twice daily x10 days Recommend daily over the counter probiotic while taking antibiotics. PENDING TEST RESULTS: Wound culture final culture pending - follow up with general surgeon regarding results RECOMMENDATIONS FOR FOLLOW-UP: Complete antibiotics in entirety. Continue wound vac per wound center. Follow up with wound center as scheduled. Next appt is 05/01/21 @ 830 a.m. Continue all other current medications. Recommend checking blood pressure prior to taking blood pressure medication. Hold if blood pressure is less than 120 systolically. If blood pressure consistently remains less that 120 recommend discussing with PCP if medication still indicated. OTHER INSTRUCTIONS: Seek medical attention if you have: * temperature above 101 * chest pain or trouble breathing * abdominal pain, nausea, vomiting * diarrhea, dark stools or bloody stools * any unanswered questions or concerns Call 911 if symptoms are severe. Please take good care of yourself. It has been a pleasure taking care of you. Please take care of yourself. If you have any questions regarding your recent hospitalization please contact [facility] and request Pablo Do @ [phone]. Danae Plaza PA-C Pending Studies at Discharge: Yes (Final anaerobic wound culture) Stand-Alone Forms: My [facility], Smoking Cessation Medications and DC Order Prescriptions: New cefdinir 300 mg capsule 300 mg PO Q12H 10 Days Qty: 20 RF: 0 Continued PNV cmb#[id number]-ferrous fumarate-FA [] 28 mg iron- 800 mcg Tablet 1 tab PO DAILY RF: 0 cyanocobalamin (vitamin B-12) [Vitamin B-12] 1,000 mcg Tablet 1,000 mcg PO DAILY RF: 0 sertraline [Zoloft] 50 mg Tablet 75 mg PO DAILY RF: 0 Vitron-C 65 mg iron- 125 mg Tablet,Delayed Release (Dr/Ec) 1 tab PO DAILY RF: 0 labetalol 100 mg Tablet 100 mg PO BID 30 Days Qty: 60 RF: 0 docusate sodium 100 mg Capsule 100 mg PO DAILY 30 Days Qty: 30 RF: 0 Vitamin 27 mg iron- 800 mcg Tablet 1 tab PO DAILY@08 30 Days Qty: 30 RF: 0 metronidazole 500 mg tablet 500 mg PO Q8H 10 Days Qty: 30 RF: 0 Discontinued cephalexin 500 mg capsule 500 mg PO Q8H 10 Days Qty: 30 RF: 0 Discharge Orders: Discharge Order (Routine); Ordered 04/30/21 Ordered By: Danae Menard/Other Patient Handouts: Negative Pressure Wound Therapy Admission Data Admit Date/Time: 04/26/21 11:11 Attending Provider: Yasmine Salvador Admit Provider: Shmuel Bills Primary Care Provider: PCP,NO Other Providers: Shmuel Bills ; Levi Ballard ; Cristopher Hamilton ; Ken Lemus ; Shayne Roth ; Maurice Ewing I. ; Go Barton II ; Lea Jones ; Tulio Andrade ; Daniel De Luna ; Danae Plaza Other Interventions: Discharge Summary Assessment (RN) Last Done: 04/30/21 12:35 Supervising Physician Co-Signing Physician Notes Pt was seen and examined. Agreed with Danae LOPEZ exam, and discharge summary. Will need to follow with wound care. Final wound culture still pending but ID recommended 10-day course of oral cefdinir and Flagyl. Continue wound vac on discharge. MD [place]
[2021-04-30] MEDS: DAPTOmycin 500 MG in SYRINGE 0 ML IV SCH (13:04)
== END 2021-04-30 14:04 | disposition home or self-care (01) | DRG 769 ==
LOC: 3E 12:49 → SUATTDRO 12:49
DX: O86.01 Infection of obstetric surgical wound, superficial incisional site; Z90.49 Acquired absence of other specified parts of digestive tract; O99.345 Other mental disorders complicating the puerperium; B96.89 Other specified bacterial agents as the cause of diseases classified elsewhere; O99.215 Obesity complicating the puerperium; O90.0 Disruption of cesarean delivery wound; O99.53 Diseases of the respiratory system complicating the puerperium; F41.9 Anxiety disorder, unspecified; Z87.891 Personal history of nicotine dependence; J45.909 Unspecified asthma, uncomplicated; E66.01 Morbid (severe) obesity due to excess calories; L02.211 Cutaneous abscess of abdominal wall; K65.4 Sclerosing mesenteritis